=== PATIENT | male | born 1935 | race Caucasian/White ===

== ENCOUNTER 2017-08-19 09:01 | Inpatient (IN) ==
--- NOTE | 2017-08-19 09:37 | Emergency Department Note ---
Nausea/Vomiting/Diarrhea HPI - General Chief complaint: Nausea/Vomiting/Diarrhea Stated complaint: n/v x2 days, coffee ground emesis Source: EMS Mode of arrival: EMS Limitations: no limitations - History of Present Illness HPI Narrative: Patient is brought in by ambulance with a history of generalized weakness, vomiting coffee ground material off and on for the last 2 days ago. Last normal bowel movement was yesterday morning. He does have some issues with decubital ulcers. He denies chest pain, he said open-heart surgery in the past denies any shortness of breath at this time, does have some abdominal distention , vague and diffuse abdominal pain in all 4 quadrants associated with nausea. MD complaint: nausea, vomiting - Related Data Home Medications Medication Instructions Recorded Confirmed aspirin 81 mg chewable tablet 81 mg PO QDAY 09/19/15 08/19/17 blood sugar diagnostic strips See Dose Instructions .ROUTE 09/19/15 06/18/17 .MEDSUPPLY cyanocobalamin (vit B-12) 2,500 2,500 mcg SUBLINGUAL QDAY 09/19/15 08/19/17 mcg sublingual tablet glimepiride 4 mg tablet 4 mg PO HS 09/19/15 08/19/17 levothyroxine 50 mcg tablet 75 mcg PO QDAY 09/19/15 08/19/17 metformin ER 500 mg 500 mg PO QPM tab 09/19/15 08/19/17 tablet,extended release 24 hr metoprolol tartrate 50 mg tablet 50 mg PO HS 09/19/15 08/19/17 multivitamin tablet 1 tab PO QDAY 09/19/15 08/19/17 omega-3 fatty acids 1,000 mg 1,000 mg PO QDAY 09/19/15 08/19/17 capsule omeprazole 20 mg tablet,delayed 20 mg PO QDAY 09/19/15 08/19/17 release warfarin 5 mg tablet 5 mg PO QDAY 06/12/16 08/19/17 Cholecalciferol (Vitamin D3) 2,000 unit PO DAILY 08/19/17 08/19/17 [Vitamin D] Magnesium Oxide [Magnesium] 400 mg PO DAILY 08/19/17 08/19/17 Previous Rx's Medication Instructions Recorded imipramine 10 mg tablet 10 mg PO BID #60 tab 04/15/17 Allergies Allergy/AdvReac Type Severity Reaction Status Date / Time JEAN PIERRE Inhibitors Allergy Unknown Unknown Verified 06/18/17 13:58 [id number]-Nfa Reductase Allergy Unknown Unknown Verified 06/18/17 13:58 Inhibitor cephalexin AdvReac Unknown Nausea Verified 06/18/17 13:58 Review of Systems All systems ED: reviewed and negative except as stated. Constitutional: Denies: fever, chills ENT ED: Denies: ear pain, throat pain Cardiovascular: Reports: dyspnea on exertion. Denies: chest pain, palpitations Respiratory: Denies: cough Gastrointestinal: Reports: abdominal pain, nausea, vomiting, hematochezia Genitourinary: Reports: urgency, frequency Neurological: Reports: weakness. Denies: headache Endocrine: Reports: fatigue Hematological/Lymphatic: Reports: easy bleeding, easy bruising Past Medical History - Past Medical History Source: nursing notes reviewed Medical history: Reports: coronary artery disease, diabetes, other ( anticoagulation) Surgical history ED: Reports: coronary bypass (CABG), orthopedic, other Family history: Reports: non-contributory - Social History smoking status: Former smoker Alcohol use: Reports: None Physical Exam - General Limitations: no limitations General appearance: alert - Head Head exam: atraumatic, normocephalic, normal inspection - Eye Eye exam: Present: normal appearance, PERRL, EOMI. Absent: conjunctival injection - ENT ENT exam: normal exam, normal oropharynx, mucous membranes moist, normal external ear exam - Neck Neck exam: Present: normal inspection, other (decreased range of motion as expected for age and condition). Absent: tenderness, meningismus - Chest Chest inspection: Present: normal inspection, symmetric chest wall rise. Absent : tenderness - Respiratory Respiratory exam: Present: normal lung sounds bilaterally. Absent: respiratory distress, wheezes - Cardiovascular Cardiovascular exam: Present: regular rate, systolic murmur - Abdominal Exam Abdominal exam: Present: soft, distention, tenderness, hypoactive bowel sounds Abdominal tenderness: Present: diffuse, mild - Rectal Exam Rectal exam: Present: decreased rectal tone, heme (+) stool - exam: Present: normal inspection. Absent: testicular tenderness - Extremities Exam Extremities exam: Present: normal inspection, full ROM, other (Earlydecubital ulcer over his gluteus) - Back Exam Back exam: Present: normal inspection, muscle spasm. Absent: full ROM, tenderness, CVA tenderness (R), CVA tenderness (L) - Neurological Exam Neurological exam: Present: alert, oriented X3, motor sensory deficit, other ( weakness of the right leg which is ) - Psychiatric Psychiatric exam: Present: normal affect - Skin Skin exam: Present: dry, intact, cyanosis Course Vital Signs Temperature 97.7 F 08/19/17 09:04 Pulse Rate 78 08/19/17 09:04 Respiratory Rate 22 08/19/17 09:04 Blood Pressure 168/78 08/19/17 09:04 Pulse Oximetry (%) 95 08/19/17 09:04 Temperature 97.7 F 08/19/17 09:04 Pulse Rate 81 08/19/17 12:46 Respiratory Rate 15 08/19/17 12:46 Blood Pressure 158/81 08/19/17 12:46 Pulse Oximetry (%) 96 08/19/17 12:46 Nausea/Vomiting/Diarrhea - [facility] Narrative Medical decision making narrative: Initial x-rays the abdomen showing massive air-fluid levels. He underwent CT scan showing dilation of small bowel loops. Transition point. No obvious appendicitis or cholecystitis. Impression is small bowel obstruction. At this point and discussed this with Dr. Ying, he will be admitted to hospital for small bowel obstruction, undetermined etiology at this point. - Lab Data Result diagrams: 08/19/17 09:41 08/19/17 09:41 Lab Results 08/19/17 08/19/17 08/19/17 Range/Units 09:41 09:41 09:43 WBC 16.5 H (4.5-11.0) K/mcL RBC 5.39 (4.50-5.90) M/mcL Hgb 14.2 (13.5-16.5) g/dL Hct 43.3 (41.0-55.0) % MCV 80.3 (80.0-100.0) fL MCH 26.4 (26.0-34.0) pg MCHC 32.9 (31.0-36.0) g/dL RDW 15.6 H (11.5-14.5) % Plt Count 360 (140-440) K/mcL MPV 8.2 (7.4-10.4) fL Gran % 85.9 H (38.0-78.0) % Lymph % (Auto) 8.8 L (15.5-49.0) % [place] % (Auto) 5.0 (1.0-12.0) % Eos % (Auto) 0.1 (0.0-7.0) % Baso % (Auto) 0.2 (0.0-2.0) % Gran # 14.2 H (1.8-8.0) K/mcL Lymph # (Auto) 1.4 L (1.5-4.8) K/mcL [place] # (Auto) 0.8 (0.1-0.9) K/mcL Eos # (Auto) 0 (0.0-0.7) K/mcL Baso # (Auto) 0 (0.0-0.3) K/mcL PT 21.3 H (11.9-14.5) sec INR 1.8 H (0.9-1.1) Sodium 135 (133-145) mmol/L Potassium 4.8 (3.3-5.1) mmol/L Chloride 94 L (96-108) mmol/L Carbon Dioxide 23 (22-30) mmol/L Anion Gap 18.0 H (8-16) BUN 43 H (8-23) mg/dl Creatinine 1.4 H (0.7-1.2) mg/dl GFR Calculation 46 Glucose 284 H (70-105) mg/dL Calcium 9.9 (8.6-10.4) mg/dl Total Bilirubin 0.4 (0.0-1.0) mg/dL AST 15 (0-37) U/l ALT 12 (0-40) U/l Alkaline Phosphatase 106 (39-117) U/L C-Reactive Protein 4.8 H (0.0-0.8) mg/dl Total Protein 8.0 (5.9-8.4) gm/dL Albumin 3.8 (3.2-5.2) gm/dL Globulin 4.2 H (2.2-3.7) gm/dL Albumin/Globulin Ratio 0.9 L (1.0-2.3) Amylase 47 (28-100) U/L Lipase 14 (7-60) U/L Urine Color Urine Appearance Urine pH (5.0-9.0) Ur Specific [place] (1.000-1.035) Urine Protein (NEG) mg/dL Urine Glucose (UA) (NEG) mg/dL Urine Ketones (NEG) mg/dL Urine Occult Blood (<0.03) mg/dL Urine Nitrate (NEG) Urine Bilirubin (NEG) mg/dL Urine Urobilinogen (NEG) mg/dL Ur Leukocyte Esterase (NEG) /uL Urine RBC (0-1) /hpf Urine WBC (0-4) /hpf Ur Squamous Epith Cells (0-4) /hpf Urine Bacteria (0) /hpf Hyaline Casts (0-2) /lpf Urine Mucus (0) /hpf Ur Culture Indicated? 08/19/17 Range/Units 11:15 WBC (4.5-11.0) K/mcL RBC (4.50-5.90) M/mcL Hgb (13.5-16.5) g/dL Hct (41.0-55.0) % MCV (80.0-100.0) fL MCH (26.0-34.0) pg MCHC (31.0-36.0) g/dL RDW (11.5-14.5) % Plt Count (140-440) K/mcL MPV (7.4-10.4) fL Gran % (38.0-78.0) % Lymph % (Auto) (15.5-49.0) % [place] % (Auto) (1.0-12.0) % Eos % (Auto) (0.0-7.0) % Baso % (Auto) (0.0-2.0) % Gran # (1.8-8.0) K/mcL Lymph # (Auto) (1.5-4.8) K/mcL [place] # (Auto) (0.1-0.9) K/mcL Eos # (Auto) (0.0-0.7) K/mcL Baso # (Auto) (0.0-0.3) K/mcL PT (11.9-14.5) sec INR (0.9-1.1) Sodium (133-145) mmol/L Potassium (3.3-5.1) mmol/L Chloride (96-108) mmol/L Carbon Dioxide (22-30) mmol/L Anion Gap (8-16) BUN (8-23) mg/dl Creatinine (0.7-1.2) mg/dl GFR Calculation Glucose (70-105) mg/dL Calcium (8.6-10.4) mg/dl Total Bilirubin (0.0-1.0) mg/dL AST (0-37) U/l ALT (0-40) U/l Alkaline Phosphatase (39-117) U/L C-Reactive Protein (0.0-0.8) mg/dl Total Protein (5.9-8.4) gm/dL Albumin (3.2-5.2) gm/dL Globulin (2.2-3.7) gm/dL Albumin/Globulin Ratio (1.0-2.3) Amylase (28-100) U/L Lipase (7-60) U/L Urine Color Kateryna Urine Appearance Cloudy Urine pH 5.0 (5.0-9.0) Ur Specific [place] 1.027 (1.000-1.035) Urine Protein 100 A (NEG) mg/dL Urine Glucose (UA) 150 A (NEG) mg/dL Urine Ketones Neg (NEG) mg/dL Urine Occult Blood 0.03 A (<0.03) mg/dL Urine Nitrate Neg (NEG) Urine Bilirubin Neg (NEG) mg/dL Urine Urobilinogen Neg (NEG) mg/dL Ur Leukocyte Esterase Neg (NEG) /uL Urine RBC 3 H (0-1) /hpf Urine WBC 3 (0-4) /hpf Ur Squamous Epith Cells 2 (0-4) /hpf Urine Bacteria 0 (0) /hpf Hyaline Casts 4 H (0-2) /lpf Urine Mucus Mod (0) /hpf Ur Culture Indicated? No Disposition Pt seen by [employer]/PA only: No Clinical Impression: Prostate cancer, Bowel obstruction Disposition: Xfer Acute Care Hospital Condition: Fair Referrals: Curtis Ruiz MD [Primary Care Provider] -
[2017-08-19] MEDS ORDERED: ONDANSETRON 4 MG/2 ML VIAL IV ONE (09:41)
[2017-08-19] MEDS ORDERED: LACTATED RINGERS 1,000 ML IV ONE (09:41)
[2017-08-19 10:22] LABS: Basophils # (Auto) 0 K/mcL (0.0-0.3); Basophils % (Auto) 0.2 % (0.0-2.0); Eosinophils # (Auto) 0 K/mcL (0.0-0.7); Eosinophils % (Auto) 0.1 % (0.0-7.0); Granulocytes % (Auto) 85.9 % (38.0-78.0); Lymphocytes # (Auto) 1.4 K/mcL (1.5-4.8); Lymphocytes % (Auto) 8.8 % (15.5-49.0); Mean Cell Volume 80.3 fL (80.0-100.0); Mean Corpuscular HGB Conc 32.9 g/dL (31.0-36.0); Mean Corpuscular Hemoglobin 26.4 pg (26.0-34.0); Monocytes # (Auto) 0.8 K/mcL (0.1-0.9); Platelet Count 360 K/mcL (140-440); RBC 5.39 M/mcL (4.50-5.90); Red Cell Distribution Width 15.6 % (11.5-14.5)
[2017-08-19 10:35] LABS: ALT/SGPT 12 U/l (0-40); Albumin 3.8 gm/dL (3.2-5.2); Albumin/Globulin Ratio 0.9 (1.0-2.3); Alkaline Phosphatase 106 U/L (39-117); Amylase 47 U/L (28-100); Blood Urea Nitrogen 43 mg/dl (8-23); C-Reactive Protein 4.8 mg/dl (0.0-0.8); Lipase 14 U/L (7-60)
--- NOTE | 2017-08-19 10:59 | XRay Report ---
HISTORY: Reason for Exam:vomiting FINDINGS: There are several loops of moderately distended small intestine in the mid and upper abdomen. They measure up to 5.2 cm in width. Moderate amount gas is present in the stomach but the stomach is not abnormally distended. The colon is decompressed. A few air-fluid levels are present. There is no free intra-abdominal air.. Patient has an endograft in the aorta and iliac arteries. There is an IVC filter the right mid abdomen and a right hip prosthesis. Pulmonary fibrosis is noted in both lung bases. IMPRESSION: Small bowel obstruction Interpreted and Authenticated by: Quentin Nuñez 08/19/17
[2017-08-19 11:38] LABS: Appearance,Urine CLOUDY; Bacteria,Urine 0 /hpf (0); Bilirubin,Urine NEG (NEG); Color,Urine AMBER; Glucose,Urine (UA) 150 mg/dL (NEG); Leukocyte Esterase,Urine NEG /uL (NEG); Mucus,Urine MOD /hpf (0); Nitrate,Urine NEG (NEG); Protein,Urine 100 mg/dL (NEG); Specific Gravity,Urine 1.027 (1.000-1.035); Urine Blood 0.03 mg/dL (<0.03); Urine Hyaline Cast 4 /lpf (0-2); Urine RBC 3 /hpf (0-1); Urine Squamous Epithelial Cell 2 /hpf (0-4); Urine WBC 3 /hpf (0-4); Urobilinogen,Urine NEG (NEG)
[2017-08-19] MEDS ORDERED: PANTOPRAZOLE 40 MG VIAL IV ONE (11:38)
--- NOTE | 2017-08-19 12:40 | XRay Report ---
HISTORY: Reason for Exam:Bowel Obstruction FINDINGS: There is mild interstitial fibrosis adjacent to both diaphragms. This was seen on the prior chest CT done on 07/22/16. The mid and upper lung powell are clear. The heart size is normal. There has been a prior sternotomy performed. Nasogastric tube passes through the esophagus into the stomach. IMPRESSION: Mild bibasilar pulmonary fibrosis Interpreted and Authenticated by: Quentin Nuñez 08/19/17
--- NOTE | 2017-08-19 12:55 | Cat Scan Report ---
CLINICAL INFORMATION: Reason for Exam:pain rlq with small bowel obstruction COMPARISON: Abdominal x-ray on 08/19/17 TECHNIQUE: The abdomen was imaged without oral or IV contrast, scanning from the diaphragm to the symphysis pubis. Sagittal and coronal reformats were created. FINDINGS: Heart is borderline enlarged. There is been a prior sternotomy. Calcified plaques are present in the coronary arteries. Mild interstitial pulmonary fibrosis in both lung bases. The liver and spleen appear normal in size and homogeneous on this nonenhanced study. Gallbladder is contracted and contains a faintly calcified stone in the fundus. The bile ducts are nondilated. No abnormality seen within the pancreas. There are small nodules in both adrenal glands. These have not changed from prior CT done on 05/09/16 by [facility]. There are multiple cysts in both kidneys. There are also vascular calcifications in the interlobar arteries. A nonobstructing 3 mm calculus is present in the calyx anteriorly in the lower pole of left kidney. There is no hydronephrosis. There is nasogastric tube passing through the esophagus into the stomach. The stomach is mildly distended and contains a moderate amount of fluid. The duodenum and jejunum are abnormally distended and contain multiple air-fluid levels. There appears to be a transition point in the mid abdomen on axial image #97 and coronal image #58. No mass or inflammation are seen at this level. There is some stranding of the mesenteric fat in left mid abdomen between loops of dilated small intestine. The ileum is decompressed. The colon is also decompressed. No free intraperitoneal air is present. There is a trace amount of ascites in the right upper quadrant. No abdominal mass or abscess are present.. There is an endograft in the abdominal aorta extending into the common iliac arteries. There is no retroperitoneal hemorrhage. An IVC filter is seen in the midportion of the inferior vena cava. Prostate is small and there are numerous radiation implant seeds within it. Patient has a right hip prosthesis.. Bone windows show no lytic or blastic metastasis. IMPRESSION: Small bowel obstruction in the distal jejunum or proximal ileum. This is of undetermined etiology but could be due to an adhesion. Interpreted and Authenticated by: Quentin Nuñez 08/19/17
[2017-08-19] MEDS ORDERED: LACTATED RINGERS 1,000 ML IV SCH (13:00)
--- NOTE | 2017-08-19 15:17 | General Surg History&Physical ---
History of Present Illness Patient information: Note initiated : 08/19/17 at 3:12 pm Service Date, if different from initiated Date: [] Patient: Melvin Sousa a 81 y/o M admitted on 08/19/17 for N/V x 2 Days, Coffee Ground Emesis. Chief Complaint: [] HPI: Mr. Sousa is a 81 year old M who is admitted with probable small bowel obstruction. The patient had acute onset of abdominal pain followed by nausea and vomiting with later development of coffee-ground emesis. He has been symptomatic for 2 days. He has not had previous abdominal surgery that he can remember. Abdominal series shows multiple dilated loops of small bowel with decompressed colon. CT of the abdomen shows dilated stomach and duodenum jejunum with decompressed ileum and colon suggestive of small bowel obstruction. The patient states that he had a normal bowel movement yesterday. He has not had rectal bleeding or dark stools. Upon arrival in the [facility] the patient complained of chest pain and was noted to have tachycardia with a variable rate. Exam revealed an irregularly irregular rhythm. This is confirmed by EKG. Cardiac enzymes have been ordered and I will ask Dr. Wright to evaluate the patient. He is presently anticoagulated but in preparation for the possibility of exploratory laparotomy his Coumadin is going to have to be corrected. I will wait until his cardiac enzymes are reviewed and if they are normal we will proceed with correction of his ProTime. Hopefully his heart rate will convert to normal with medical therapy. Review of Systems - Constitutional fatigue, malaise, weakness - EENT Nose, mouth and throat: abnormal hearing, dizziness - Cardiovascular chest pain, dyspnea on exertion, irregular heart rhythm, palpatations, rapid heart rate - Respiratory dyspnea on exertion - Gastrointestinal abdominal pain, cramping, hematemesis, nausea, vomiting - Genitourinary urinary frequency, urinary incontinence, urinary urgency - Musculoskeletal arthralgias - Integumentary no bleeding lesions, no new lesions, no pruritus, no rash - Neurological abnormal hearing, confusion, no frequent falls, no memory loss, no sensory deficit - Psychiatric no anxiety, no depression - Endocrine fatigue, palpitations - Hematologic/Lymphatic easy bleeding, easy bruising, no lymphadenopathy - Allergic/Immunologic no tongue swelling, no throat swelling, no uticaria, no wheezing, no lip swelling Past History Past medical history: Carcinoma of the prostate Coronary artery disease status post three-vessel CABG History of DVT History of pulmonary embolus with IVC filter Diabetes mellitus type 2 Cervical spinal stenosis History of supraventricular tachycardia Peripheral neuropathy Long-term warfarin use Gastroesophageal reflux disease with Huizar's esophagus Past surgical history: TURP Laser vaporization of prostate Right total hip arthroplasty Laminectomy Coronary artery bypass graft Endovascular aortoiliac graft Past family history: Carcinoma of lung in 2 family members Past social history: Occasional alcohol use Former smoker Medications and Allergies Home Medications Medication Instructions Recorded Confirmed Type aspirin 81 mg chewable tablet 81 mg PO QDAY 09/19/15 08/19/17 History blood sugar diagnostic strips See Dose Instructions .ROUTE 09/19/15 06/18/17 History .MEDSUPPLY cyanocobalamin (vit B-12) 2,500 2,500 mcg SUBLINGUAL QDAY 09/19/15 08/19/17 History mcg sublingual tablet glimepiride 4 mg tablet 4 mg PO HS 09/19/15 08/19/17 History levothyroxine 50 mcg tablet 75 mcg PO QDAY 09/19/15 08/19/17 History metformin ER 500 mg 500 mg PO QPM tab 09/19/15 08/19/17 History tablet,extended release 24 hr metoprolol tartrate 50 mg tablet 50 mg PO HS 09/19/15 08/19/17 History multivitamin tablet 1 tab PO QDAY 09/19/15 08/19/17 History omega-3 fatty acids 1,000 mg 1,000 mg PO QDAY 09/19/15 08/19/17 History capsule omeprazole 20 mg tablet,delayed 20 mg PO QDAY 09/19/15 08/19/17 History release warfarin 5 mg tablet 5 mg PO QDAY 06/12/16 08/19/17 History imipramine 10 mg tablet 10 mg PO BID #60 tab 04/15/17 08/19/17 Rx Cholecalciferol (Vitamin D3) 2,000 unit PO DAILY 08/19/17 08/19/17 History [Vitamin D] Magnesium Oxide [Magnesium] 400 mg PO DAILY 08/19/17 08/19/17 History Allergies Allergy/AdvReac Type Severity Reaction Status Date / Time Atxeuwq-Kar-Dia Reductase Allergy Unknown Unknown Verified 06/18/17 13:58 Inhibitor cephalexin AdvReac Unknown Nausea Verified 06/18/17 13:58 Exam Temp Pulse Resp BP Pulse Ox 98.4 F 121 H 20 159/87 92 08/19/17 14:49 08/19/17 14:49 08/19/17 14:49 08/19/17 14:49 08/19/17 14:49 - General physical appearance well developed, well nourished, no distress, other (Complains of chest pain but in no acute distress) - Eyes PERRL, normal ocular movement - ENT normal pinna, normal nares, normal mucosa, no hearing loss, no congestion - Head Head exam IM: Present: atraumatic, normal inspection, normocephalic - Neck no masses, no bruits, trachea midline, no lymphadectomy, no venous distension - Cardiovascular Cardiovascular exam IM: Present: irregular rhythm, tachycardia (Irregular irregular rhythm with rate between 120 and 140) - Respiratory normal expansion, normal respiratory effort, clear to percussion, clear to auscultation - Abdomen Abdomen: Present: soft, non tender, bowel sounds (Mildly hyperactive bowel sounds no major tenderness or guarding), distended Hernia: Present: none - Genitourinary Present: normal penis with no external lesions - Integumentary Present: no rash, no growths, no abnormal pigmentation - Neurologic Present: normal coordination, normal sensation - Musculoskeletal Present: normal gait, normal posture - Psychiatric Present: oriented to time, oriented to person, oriented to place, speech is normal, memory intact Assessment and Plan (1) Small bowel obstruction Status: Acute (2) Atrial fibrillation with rapid ventricular response Stat troponin and CPK Stat EKG We will allow hospitalist to control rate before reversing the anticoagulation Status: Acute (3) Spinal stenosis, cervical region Status: Chronic (4) DM type 2 (diabetes mellitus, type 2) Status: Chronic Qualifiers: Diabetes mellitus complication status: without complication Diabetes mellitus snf insulin use: without intermission coordinator use Qualified Code(s): E11.9 - Type 2 diabetes mellitus without complications (5) Anticoagulant long-term use Status: Chronic (6) CAD (coronary artery disease) Status: Chronic
[2017-08-19] MEDS: METOPROLOL TARTRATE 5 MG/5 ML VIAL IV SCH ×3 (15:19→15:46)
[2017-08-19] MEDS ORDERED: PROMETHAZINE 25 MG/ML VIAL IV PRN (15:37)
[2017-08-19] MEDS ORDERED: HYDROmorphone 2 MG/ML SYRINGE IV PRN (15:37)
[2017-08-19] MEDS ORDERED: 0.9 % SODIUM CHLORIDE 250 ML IV SCH (15:45)
[2017-08-19] MEDS: 0.9 % SODIUM CHLORIDE 1,000 ML IV SCH (15:48)
[2017-08-19] MEDS: PHYTONADIONE 10 MG in 0.9 % SODIUM CHLORIDE 50 ML IV SCH (16:17)
[2017-08-19] MEDS: PANTOPRAZOLE 40 MG VIAL IV SCH (16:49)
[2017-08-19] MEDS ORDERED: DILTIAZEM 25 MG/5 ML VIAL IV ONE (16:57)
[2017-08-19] MEDS ORDERED: NITROGLYCERIN 0.4 MG TAB.SUBL SL PRN (16:59)
[2017-08-19] MEDS ORDERED: ASPIRIN 325 MG ENTERIC COATED TABLET PO ONE (17:30)
[2017-08-19] MEDS ORDERED: ASPIRIN 81 MG TAB.CHEW CHEWED ONE (17:50)
[2017-08-19] MEDS ORDERED: AMIODARONE 150 MG in DEXTROSE 5% IN WATER 50 ML IV ONE (17:53)
--- NOTE | 2017-08-19 18:28 | Internal Medicine Consult Note ---
Medical - CN: HPI - Data of Consult Patient: new to practice Consult date: 08/19/17 Requesting Physician: Ronan Ying MD Primary Care Provider: Curtis Ruiz - Consult Narrative Reason for consult: chest pain and atrial fibrillation. History of present illness: Mr. Sousa is a 81 year old Male with multiple medical issues and a significant cardiac history presented to the ER today with abdominal pain x 2 days started as cramps in the abdomen, mid upper abdomen, non radiating. Thought he had constipation, and therefore took stool softners, this did nto help and his pain worsened the next day, he did pass some stools, but also had nausea and vomiting x 5 This AM his pain progresssed and he was not feeling well, nausea and vomiting x 1, The patient therfore presented to the er In the ER his las showed leucocytosis wbc 16.5, na 135, creat 1.4 CT showed small bowel obstruction. Patient was admitted to the surgery service for further management ON arriving on the floor the patient during evaluation by the surgeon noted that he was having chest pain and paliptations. CHest pain was retrosternal, dull, radiating down the right arm, lasted for 30 mins, associated with palpitations, no sob, dizziness, sweating of blurring of vision. THe patient had irregualr hr and elevated hr, EKG showed new onset ATrial flutter/ fibrillation. Trop done showed trop of 0.04, CK 6, Medicine was consulted for management of these issues Patient is on oxygen, on home asa 81, does not take statin, and declined statin after being expalained the risk of not taking statin. patient on my eval was chest pain free, but still in afib/ flutter with rvr hr around 125, metoprolol x 3 failed. cardizem 20mg iv did not help much I called hte patients primary funds development director Dr Prince and explained the situation , he advised amiodarone. LIkely that troponin of 0.04 is leak secondary to afib and rvr, but to trend trop CC: MD nathalie Ortiz All systems: reviewed and no additional remarkable complaints except as stated ( as per HPI) Medical - CN: PMH Medical history: Medical History (Last Reviewed 06/18/17 @ 13:59 by Dorothy Garcia [facility]) Contusion of right chest wall (Acute) Bowel obstruction (Acute) Small bowel obstruction (Acute) Atrial fibrillation with rapid ventricular response (Acute) Urinary incontinence with continuous leakage (Acute) Supraventricular tachycardia (Chronic) Spinal stenosis, cervical region (Chronic) Pulmonary embolism (Chronic) Prostate cancer (Chronic 12/06/13) Peripheral neuropathy (Chronic) Incomplete bladder emptying (Chronic 12/06/13) Hyperthyroidism (Chronic) Hyperlipemia (Chronic) Hip pain (Chronic) Closed hip fracture (Chronic) Groin pain (Chronic) DM type 2 (diabetes mellitus, type 2) (Chronic) Deep vein thrombosis (Chronic) Anticoagulant long-term use (Chronic) Cough (Chronic) CAD (coronary artery disease) (Chronic) Barretts esophagus (Chronic) Arrhythmia (Chronic) 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) Surgical history: Past Surgical History (Last Reviewed 06/18/17 @ 13:59 by Dorothy Garcia CMA) Hx of laminectomy (Acute) History of right hip replacement (Acute) History of prostate surgery (Acute 01/03/15) Hx of CABG (Acute) Hx of biopsy (Acute) S/P TURP (Chronic 12/21/15) Family history: reviewed and not pertinent Pertinent family history: Family History (Last Reviewed 06/18/17 @ 13:59 by Dorothy Garcia CMA) brother Malignant neoplasm of lung father Malignant neoplasm of lung Medical - CN: Meds Home Medications Medication Instructions Recorded Confirmed Type aspirin 81 mg chewable tablet 81 mg PO QDAY 09/19/15 08/19/17 History blood sugar diagnostic strips See Dose Instructions .ROUTE 09/19/15 06/18/17 History .MEDSUPPLY cyanocobalamin (vit B-12) 2,500 2,500 mcg SUBLINGUAL QDAY 09/19/15 08/19/17 History mcg sublingual tablet glimepiride 4 mg tablet 4 mg PO HS 09/19/15 08/19/17 History levothyroxine 50 mcg tablet 75 mcg PO QDAY 09/19/15 08/19/17 History metformin ER 500 mg 500 mg PO QPM tab 09/19/15 08/19/17 History tablet,extended release 24 hr metoprolol tartrate 50 mg tablet 50 mg PO HS 09/19/15 08/19/17 History multivitamin tablet 1 tab PO QDAY 09/19/15 08/19/17 History omega-3 fatty acids 1,000 mg 1,000 mg PO QDAY 09/19/15 08/19/17 History capsule omeprazole 20 mg tablet,delayed 20 mg PO QDAY 09/19/15 08/19/17 History release warfarin 5 mg tablet 5 mg PO QDAY 06/12/16 08/19/17 History imipramine 10 mg tablet 10 mg PO BID #60 tab 04/15/17 08/19/17 Rx Cholecalciferol (Vitamin D3) 2,000 unit PO DAILY 08/19/17 08/19/17 History [Vitamin D] Magnesium Oxide [Magnesium] 400 mg PO DAILY 08/19/17 08/19/17 History Allergies Allergy/AdvReac Type Severity Reaction Status Date / Time [id number] Reductase Allergy Unknown Unknown Verified 06/18/17 13:58 Inhibitor cephalexin AdvReac Unknown Nausea Verified 06/18/17 13:58 Medical - CN: Exam - Constitutional Vitals: Temp Pulse Resp BP Pulse Ox 98.0 F 121 H 16 128/83 95 08/19/17 17:00 08/19/17 15:55 08/19/17 17:00 08/19/17 15:55 08/19/17 15:55 Exam: GENERAL: The patient is a well-developed, well-nourished in no apparent distress. Is alert and oriented x3. VITAL SIGNS: Reviewed and as noted elsewhere. HEENT: Head is normocephalic and atraumatic. Extraocular muscles are intact. Pupils are equal, round, and reactive to light. Nares appeared normal. Mouth appears any without lesions. Mucous membranes are dry, NT gube in place to wall suctin, brownish liquid NECK: Normal to inspection, Supple, No lymphadenopathy or thyromegaly. LUNGS: Air entry equal on both sides, no wheezing, crackles or rhonchi noted. No accessory muscles of respiration HEART: Regular tachycardic rate and rhythm normal, S1 and S2 heard, no Gallop, S3 or Rub Noted, No Gross murmur heard. ABDOMEN: Soft, nontender, but distended. hypoactive but Positive bowel sounds. No hepatosplenomegaly was noted. EXTREMITIES: No cyanosis, clubbing, rash, lesions. edema + NEUROLOGIC: Cranial nerves II through XII are grossly intact. Motor and Sensory System Grossly Intact PSYCHIATRIC: Normal affect, Normal Mood. Appropriate Behavior. SKIN: No ulceration or wounds noted, No jaundice, No rash noted. Medical - CN: Result - Labs CBC & Chem 7: 08/19/17 09:41 08/19/17 09:41 Labs: Short CBC 08/19/17 Range/Units 09:41 WBC 16.5 H (4.5-11.0) K/mcL Hgb 14.2 (13.5-16.5) g/dL Hct 43.3 (41.0-55.0) % Plt Count 360 (140-440) K/mcL BMP 08/19/17 09:41 Sodium 135 Potassium 4.8 Chloride 94 L Carbon Dioxide 23 BUN 43 H Creatinine 1.4 H Glucose 284 H Calcium 9.9 Cardiac Enzymes 08/19/17 08/19/17 Range/Units 15:00 15:00 CK-MB (CK-2) 6.0 H (0-4.9) ng/ml Troponin T 0.04 H* (0-0.03) ng/ml Liver Function 08/19/17 Range/Units 09:41 Total Bilirubin 0.4 (0.0-1.0) mg/dL AST 15 (0-37) U/l ALT 12 (0-40) U/l Alkaline Phosphatase 106 (39-117) U/L Albumin 3.8 (3.2-5.2) gm/dL Urine 08/19/17 Range/Units 11:15 Urine Color Kateryna Urine Appearance Cloudy Urine pH 5.0 (5.0-9.0) Ur Specific [place] 1.027 (1.000-1.035) Urine Protein 100 A (NEG) mg/dL Urine Glucose (UA) 150 A (NEG) mg/dL Medical - CN: A/P - Narrative A/P Narrative: A/P Acute small bowel obstruction new onset afib Chest pain type 2 TX CAD, h/o pvd, AAA s/p repair HTN DM Leucocytosis h/o dvt and pe on coumadin Plan ADmit to tele for now Trend troponin ASA 325 given, prn ntg if needed IV amiodarone for rate control IF troponin trends up signficantly then will have to xfer to higher center for further management Patients INR on presentation was 1.8, he is on coumadin, he did get Vit K in light of need for surgery will start hep ggt vs lovenox IV fluids resume asas, pt declined statin, resume home meds as appropriate. sliding scale isulin monitor closely Full code npo status. Social History - Tobacco smoking status: Former smoker - Alcohol alcohol intake frequency: holiday/special occasion only - Substance use substance use type: does not use
[2017-08-19] MEDS ORDERED: DEXTROSE 50% 50 ML VIAL IV PRN (18:33)
[2017-08-19] MEDS: AMIODARONE 360 MG in PREMIX 1 BAG IV SCH (19:04)
[2017-08-20] MEDS ORDERED: AMIODARONE 360 MG in PREMIX 1 BAG IV SCH ×2 (00:15→11:11)
[2017-08-20] MEDS ORDERED: PHYTONADIONE 10 MG/ML AMPUL ONE (00:25)
[2017-08-20] MEDS: INSULIN LISPRO 1 UNIT/0.01 ML UNIT SQ SCH ×4 (01:06→18:01)
[2017-08-20] MEDS: AMIODARONE 360 MG in PREMIX 1 BAG IV SCH ×2 (01:08→08:19)
[2017-08-20] MEDS: PHYTONADIONE 10 MG in 0.9 % SODIUM CHLORIDE 50 ML IV SCH (01:10)
[2017-08-20] MEDS: 0.9 % SODIUM CHLORIDE 1,000 ML IV SCH ×4 (02:25→18:45)
[2017-08-20 05:15] LABS: Basophils # (Auto) 0 K/mcL (0.0-0.3); Basophils % (Auto) 0.3 % (0.0-2.0); Eosinophils # (Auto) 0.2 K/mcL (0.0-0.7); Eosinophils % (Auto) 1.8 % (0.0-7.0); Granulocytes % (Auto) 73.3 % (38.0-78.0); Lymphocytes # (Auto) 1.4 K/mcL (1.5-4.8); Mean Cell Volume 80.6 fL (80.0-100.0); Mean Corpuscular HGB Conc 32.8 g/dL (31.0-36.0); Mean Corpuscular Hemoglobin 26.4 pg (26.0-34.0); Monocytes # (Auto) 0.9 K/mcL (0.1-0.9); Monocytes % (Auto) 9.6 % (1.0-12.0); Platelet Count 253 K/mcL (140-440); RBC 4.34 M/mcL (4.50-5.90); Red Cell Distribution Width 15.7 % (11.5-14.5)
[2017-08-20 05:56] LABS: ALT/SGPT 9 U/l (0-40); Albumin 3.4 gm/dL (3.2-5.2); Alkaline Phosphatase 78 U/L (39-117); Bilirubin,Direct < 0.2 mg/dL (0.0-0.3); Blood Urea Nitrogen 42 mg/dl (8-23); Gamma Glutamyl Transpeptidase 15 U/L (8-61); Uric Acid 7.6 mg/dL (2.5-8.0)
[2017-08-20] MEDS ORDERED: LEVOFLOXACIN 750 MG/150 ML BAG IV ONE (07:41)
[2017-08-20] MEDS ORDERED: 0.9 % SODIUM CHLORIDE 250 ML IV SCH ×2 (07:45→11:11)
[2017-08-20] MEDS: PANTOPRAZOLE 40 MG VIAL IV SCH ×2 (08:32→17:49)
--- NOTE | 2017-08-20 08:36 | XRay Report ---
HISTORY: Reason for Exam:FOR F/U OF ILEUS FINDINGS: There are several very dilated loops of small bowel in the mid and upper abdomen. The measure up to 6 cm in diameter. Stomach is decompressed by a nasogastric tube. There is very little air and stool within the colon. Small bowel measured 5.2 cm in greatest diameter on yesterday's exam. No free intra-abdominal air is present. The upright view is limited since it was acquired portably and most of the abdomen was not visualized. IMPRESSION: Worsening small bowel obstruction Interpreted and Authenticated by: Quentin Nuñez 08/20/17
[2017-08-20] MEDS ORDERED: SUCCINYLCHOLINE 20 MG/ML ML IV ONE (09:30)
[2017-08-20] MEDS ORDERED: ePHEDrine 50 MG/ML AMPUL IV ONE (09:30)
[2017-08-20] MEDS ORDERED: DEXAMETHASONE 10 MG/ML VIAL IV ONE (09:30)
[2017-08-20] MEDS ORDERED: HYDROmorphone 2 MG/ML SYRINGE IV ONE (09:30)
[2017-08-20] MEDS ORDERED: ROCURONIUM 10 MG/ML ML IV ONE (09:30)
[2017-08-20] MEDS ORDERED: ONDANSETRON 4 MG/2 ML VIAL IV ONE (09:30)
[2017-08-20] MEDS ORDERED: GLYCOPYRROLATE 0.2 MG/ML VIAL IV ONE (09:30)
[2017-08-20] MEDS ORDERED: LIDOCAINE HCL/PF 100 MG/5 ML SYRINGE IV ONE (09:30)
[2017-08-20] MEDS ORDERED: KETAMINE 100 MG/ML ML IV ONE (09:30)
[2017-08-20] MEDS ORDERED: NEOSTIGMINE 1 MG/ML VIAL IV ONE (09:30)
[2017-08-20] MEDS ORDERED: MIDAZOLAM 2 MG/2 ML VIAL IV ONE (09:30)
[2017-08-20] MEDS ORDERED: PROPOFOL 200 MG/20 ML VIAL IV ONE (09:30)
[2017-08-20] MEDS ORDERED: fentaNYL 250 MCG/5 ML VIAL IV ONE (09:30)
[2017-08-20] MEDS ORDERED: MEPERIDINE 25 MG/ML SYRINGE IV PRN (10:24)
[2017-08-20] MEDS ORDERED: LACTATED RINGERS 250 ML IV PRN ×2 (10:24→11:11)
[2017-08-20] MEDS ORDERED: MEPERIDINE 50 MG/ML SYRINGE IM PRN ×2 (10:24→11:11)
[2017-08-20] MEDS ORDERED: BENZOCAINE/MENTHOL 1 LOZENGE PO PRN ×2 (10:24→11:11)
[2017-08-20] MEDS ORDERED: PROMETHAZINE 25 MG/ML VIAL IV PRN ×2 (10:24→11:11)
[2017-08-20] MEDS ORDERED: PROMETHAZINE 25 MG/ML VIAL IM PRN (10:24)
[2017-08-20] MEDS ORDERED: FLUMAZENIL 0.1 MG/ML ML IV PRN (10:24)
[2017-08-20] MEDS ORDERED: fentaNYL 100 MCG/2 ML VIAL IV PRN (10:24)
[2017-08-20] MEDS ORDERED: IPRATROPIUM/ALBUTEROL 3 ML AMPUL.NEB NEB PRN (10:24)
[2017-08-20] MEDS ORDERED: NALOXONE HCL 0.4 MG/ML VIAL IV PRN ×2 (10:24→11:11)
[2017-08-20] MEDS ORDERED: METHOCARBAMOL 1,000 MG/10 ML VIAL IV PRN (10:24)
[2017-08-20] MEDS ORDERED: ePHEDrine 50 MG/ML AMPUL IV PRN (10:24)
[2017-08-20] MEDS ORDERED: HYDROmorphone 2 MG/ML SYRINGE IV PRN (10:24)
[2017-08-20] MEDS ORDERED: ONDANSETRON 4 MG/2 ML VIAL IV PRN (10:24)
[2017-08-20] MEDS ORDERED: diphenhydrAMINE 50 MG/ML VIAL IV PRN (10:24)
[2017-08-20] MEDS ORDERED: LACTATED RINGERS 1,000 ML IV SCH ×2 (10:30→11:11)
--- NOTE | 2017-08-20 10:33 | Brief Operative Note ---
Date of procedure: 08/20/17 Pre-op diagnosis: small bowel obstruction Post-op diagnosis: other (adhesions with small bowel obstruction) Procedure: EXPLORATORY LAPAROTOMY WITH ADHESIOLYSIS Grafts/Implants: No Anesthesia: GETA Findings: ADHESIVE BANDS ACROSS BASE OF SMALL BOWEL MESENTERY WITH COMPLETE OBSTRUCTION Complications: none Surgeon: Ronan Ying Estimated blood loss (cc): 10 Specimens Removed/Pathology: none sent Condition: stable Disposition: other (TELEMETRY)
[2017-08-20] MEDS ORDERED: NITROGLYCERIN 0.4 MG TAB.SUBL SL PRN (11:11)
[2017-08-20] MEDS ORDERED: ACETAMINOPHEN 1,000 MG/100 ML BOTTLE IV PRN ×2 (11:11→11:30)
[2017-08-20] MEDS ORDERED: DEXTROSE 50% 50 ML VIAL IV PRN (11:11)
[2017-08-20] MEDS: METOCLOPRAMIDE 10 MG/2 ML VIAL IV SCH ×2 (12:44→18:02)
--- NOTE | 2017-08-20 15:08 | Internal Med Progress Note ---
Medical - PN: Subj Patient information: Note initiated : 08/20/17 at 3:01 pm Service Date, if different from initiated Date: [] Patient: Melvin Sousa a 81 y/o M admitted on 08/19/17 for N/V x 2 Days, Coffee Ground Emesis/Small Bowel Obs. Chief Complaint: [] Interval history: Mr. Sousa is a 81 year old Male with multiple medical issues and a significant cardiac history presented to the ER today with abdominal pain x 2 days started as cramps in the abdomen, mid upper abdomen, non radiating. Thought he had constipation, and therefore took stool softners, this did nto help and his pain worsened the next day, he did pass some stools, but also had nausea and vomiting x 5 This AM his pain progresssed and he was not feeling well, nausea and vomiting x 1, The patient therfore presented to the er In the ER his las showed leucocytosis wbc 16.5, na 135, creat 1.4 CT showed small bowel obstruction. Patient was admitted to the surgery service for further management ON arriving on the floor the patient during evaluation by the surgeon noted that he was having chest pain and paliptations. CHest pain was retrosternal, dull, radiating down the right arm, lasted for 30 mins, associated with palpitations, no sob, dizziness, sweating of blurring of vision. THe patient had irregualr hr and elevated hr, EKG showed new onset ATrial flutter/ fibrillation. Trop done showed trop of 0.04, CK 6, Medicine was consulted for management of these issues Patient is on oxygen, on home asa 81, does not take statin, and declined statin after being expalained the risk of not taking statin. patient on my eval was chest pain free, but still in afib/ flutter with rvr hr around 125, metoprolol x 3 failed. cardizem 20mg iv did not help much I called hte patients primary animal laboratory technician Dr Prince and explained the situation , he advised amiodarone. LIkely that troponin of 0.04 is leak secondary to afib and rvr, but to trend trop August 20 Patient seen examiend aware high risk surgery due to cardiac issues pt went for SX this AM, and came back now in unit for monitoring continue amiodarone drip for now monitor on tele, no e/o recurrence of afib Pertinent ROS: Denies headache, dizziness Denies chest pain, palpitations Denies cough or shortness of breath Denies abdominal pain, nausea or vomiting. - Constitutional Vitals: Vital Signs Temp Pulse Resp BP Pulse Ox 98.5 F 65 16 134/83 94 08/20/17 11:23 08/20/17 11:23 08/20/17 11:23 08/20/17 11:23 08/20/17 11:23 Period Temp Pulse Resp BP Sys/Viveros Pulse Ox Last 24 Hr 98.0 F-99.5 F 56-125 11-21 107-170/52-100 90-99 Intake and Output 08/20/17 08/20/17 08/20/17 05:59 13:59 21:59 Intake Total 1538 / 1538 2175 / 2175 Output Total 292 / 292 85 / 85 Balance 1246 / 1246 2089 Intake & Output: Intake & Output 08/20/17 08/20/17 08/20/17 05:59 13:59 21:59 Intake Total 1538 / 1538 2175 / 2175 Output Total 292 / 292 85 / 85 Balance 1246 / 1246 2089 / 2089 Intake: IV 1188 / 1188 1200 / 1200 Sodium Chloride 0.9% 1,000 ml @ 1000 / 1000 150 mls/hr IV .Q6H40M [facility] Rx#: [id number] Nexterone 360 mg In Premix 1 188 / 188 Bag @ 1 MG/MIN 33.33 mls/hr IV .Q6H1M [facility] Rx#:[id number] Oral 0 / 0 Blood Product 350 / 350 325 / 325 Fresh Frozen Plasma 650 / 650 Output: Gastric Drainage 140 / 140 35 / 35 Left Nare 140 / 140 35 / 35 Void Amount 150 / 150 # of times incontinent of urine 2 / 2 Estimated Blood Loss 50 / 50 Other: # Voids 2 # Bowel Movements 0 Exam: Constitutional; Afebrile, cooperative, alert, not in distress. Eyes- No icterus, , No periorbital swelling Ears- Ext ear normal, hearing normal to conversation. Neck- Midline trachea, supple Respiratory system: Air Entry equal on both sides, No crackles or wheezing, no rhonchi. CVS- Rate rhythm regular, S1,S2 heard, no gallop, no rub. Abdomen- Soft nontender abdomen distended abdomen, no organomegaly, no tenderness, no guarding or rigidity, GRAIN MERCHANDISER- AOOx3, moving all extremities, no gross focal deficit noted. Medical - PN: Obj Da - Labs CBC & Chem 7: 08/20/17 03:52 08/20/17 03:52 Labs: Abnormal Lab Results 08/20/17 08/20/17 08/20/17 03:52 03:52 03:52 WBC RBC 4.34 L Hgb 11.5 L Hct 35.0 L RDW 15.7 H Gran % Lymph % (Auto) 15.0 L Gran # Lymph # (Auto) 1.4 L PT 15.9 H INR 1.2 H Chloride Anion Gap BUN 42 H Creatinine Glucose 198 H CK-MB (CK-2) Troponin T C-Reactive Protein Globulin Albumin/Globulin Ratio Urine Protein Urine Glucose (UA) Urine Occult Blood Urine RBC Hyaline Casts 08/19/17 08/19/17 08/19/17 21:06 15:00 15:00 WBC RBC Hgb Hct RDW Gran % Lymph % (Auto) Gran # Lymph # (Auto) PT INR Chloride Anion Gap BUN Creatinine Glucose CK-MB (CK-2) 6.0 H Troponin T 0.05 H* 0.04 H* C-Reactive Protein Globulin Albumin/Globulin Ratio Urine Protein Urine Glucose (UA) Urine Occult Blood Urine RBC Hyaline Casts 08/19/17 08/19/17 08/19/17 11:15 09:43 09:41 WBC RBC Hgb Hct RDW Gran % Lymph % (Auto) Gran # Lymph # (Auto) PT 21.3 H INR 1.8 H Chloride 94 L Anion Gap 18.0 H BUN 43 H Creatinine 1.4 H Glucose 284 H CK-MB (CK-2) Troponin T C-Reactive Protein 4.8 H Globulin 4.2 H Albumin/Globulin Ratio 0.9 L Urine Protein 100 A Urine Glucose (UA) 150 A Urine Occult Blood 0.03 A Urine RBC 3 H Hyaline Casts 4 H 08/19/17 09:41 WBC 16.5 H RBC Hgb Hct RDW 15.6 H Gran % 85.9 H Lymph % (Auto) 8.8 L Gran # 14.2 H Lymph # (Auto) 1.4 L PT INR Chloride Anion Gap BUN Creatinine Glucose CK-MB (CK-2) Troponin T C-Reactive Protein Globulin Albumin/Globulin Ratio Urine Protein Urine Glucose (UA) Urine Occult Blood Urine RBC Hyaline Casts Meds: Medications Dextrose (Dextrose 50%) 0 ml IV UD PRN PRN Reason: Hypoglycemia Diagnostic Test (Pha) (Accu-Chek) 1 each FS Q6 [facility] Last Admin: 08/20/17 12:53 Dose: 1 each Hydromorphone HCl (Dilaudid) 1 mg IV Q4HP PRN PRN Reason: Pain AMIODARONE 360 mg/ Premix 200 mls @ 16.66 mls/hr IV .Q12H1M [facility]; 0.5 MG/MIN PRN Reason: Protocol Stop: 08/20/17 18:00 Last Admin: 08/20/17 12:43 Dose: 0.5 mg/min, 16.66 mls/hr Sodium Chloride (Sodium Chloride 0.9%) 1,000 mls @ 150 mls/hr IV .Q6H40M [facility] Last Admin: 08/20/17 12:43 Dose: 150 mls/hr Sodium Chloride (Sodium Chloride 0.9%) 250 mls @ 20 mls/hr IV .[id number] [facility] Stop: 08/20/17 20:14 Last Admin: 08/20/17 12:44 Dose: 20 mls/hr Acetaminophen (Ofirmev) 1,000 mg in 100 mls @ 200 mls/hr IV Q6HP PRN PRN Reason: Pain Insulin Human Lispro (Humalog) 0 unit SQ Q6 [facility] PRN Reason: Protocol Last Admin: 08/20/17 13:00 Dose: 3 unit Metoclopramide HCl (Reglan) 10 mg IV Q6 [facility] Last Admin: 08/20/17 12:44 Dose: 10 mg Nitroglycerin (Nitrostat) 0.4 mg SL Q5M PRN PRN Reason: Chest Pain Pantoprazole Sodium (Protonix) 40 mg IV BIDAC [facility] Promethazine HCl (Phenergan) 12.5 mg IV Q4HP PRN PRN Reason: Nausea And Vomiting Medical - PN: A/P - Time Spent With Patient Total time spent is greater than 50% in coordination of care (as documented) at patient's floor/unit and/or counseling patient: - Narrative A/P Narrative: A/P Acute small bowel obstruction new onset afib Chest pain type 2 DC CAD, h/o pvd, AAA s/p repair HTN DM Leucocytosis h/o dvt and pe on coumadin Plan post op day 0 today monitor on tele for now Troponin max was 0.05 which is likely related to tachycadia on amiodarone for rate control, will d/c after 24 hrs already on beta blcokers at home for CAD, will adjust dose at d ischarge, already on coumadin for dvt. pe, resume warfarin once surgically cleared. IV fluids resume asas, pt declined statin, resume home meds as appropriate. sliding scale isulin for now Full code npo status. Medical - PN: Qual - VTE Deep Vein Thrombosis/Pulmonary Embolism Present on Admission: No
[2017-08-20] MEDS: HYDROmorphone 2 MG/ML SYRINGE IV PRN (17:48)
[2017-08-21] MEDS: INSULIN LISPRO 1 UNIT/0.01 ML UNIT SQ SCH ×4 (00:04→18:01)
[2017-08-21] MEDS: METOCLOPRAMIDE 10 MG/2 ML VIAL IV SCH ×4 (00:05→17:57)
[2017-08-21] MEDS: HYDROmorphone 2 MG/ML SYRINGE IV PRN ×3 (00:05→21:46)
[2017-08-21] MEDS: 0.9 % SODIUM CHLORIDE 1,000 ML IV SCH ×4 (02:20→22:00)
[2017-08-21 06:09] LABS: Basophils # (Auto) 0 K/mcL (0.0-0.3); Basophils % (Auto) 0 % (0.0-2.0); Eosinophils # (Auto) 0 K/mcL (0.0-0.7); Eosinophils % (Auto) 0 % (0.0-7.0); Granulocytes % (Auto) 83.2 % (38.0-78.0); Lymphocytes # (Auto) 0.6 K/mcL (1.5-4.8); Lymphocytes % (Auto) 8.2 % (15.5-49.0); Mean Cell Volume 80.2 fL (80.0-100.0); Mean Corpuscular HGB Conc 33.3 g/dL (31.0-36.0); Mean Corpuscular Hemoglobin 26.7 pg (26.0-34.0); Monocytes # (Auto) 0.7 K/mcL (0.1-0.9); Monocytes % (Auto) 8.6 % (1.0-12.0); Platelet Count 192 K/mcL (140-440); RBC 3.58 M/mcL (4.50-5.90); Red Cell Distribution Width 15.4 % (11.5-14.5)
[2017-08-21 06:29] LABS: ALT/SGPT 9 U/l (0-40); Alkaline Phosphatase 66 U/L (39-117); Bilirubin,Direct < 0.2 mg/dL (0.0-0.3); Blood Urea Nitrogen 30 mg/dl (8-23); Gamma Glutamyl Transpeptidase 11 U/L (8-61); Magnesium 1.7 mg/dL (1.6-2.5); Uric Acid 6.1 mg/dL (2.5-8.0)
[2017-08-21] MEDS: PANTOPRAZOLE 40 MG VIAL IV SCH ×2 (07:55→17:57)
--- NOTE | 2017-08-21 12:40 | General Surgery Progress Note ---
Subjective Patient reports: feels better, pain is less, no flatus, no bowel movement, afebrile Narrative: Note initiated : 08/21/17 at 12:38 pm Service Date, if different from initiated Date: [] Patient: Melvin Sousa 81 y/o M admitted on 08/19/17 for N/V x 2 Days, Coffee Ground Emesis/Small Bowel Obs. Chief C patient is doing well. He has minimal discomfort. He does not have any chest pain or shortness of breath. He has not had any type of tachyarrhythmia. His heart rate has been regular and less than 80 consistently. He has not had flatus or bowel movement. He does complain of hunger.] Objective Temp Pulse Resp BP Pulse Ox 98.9 F 72 18 137/65 95 08/21/17 08:01 08/20/17 20:00 08/21/17 08:01 08/21/17 08:01 08/21/17 08:01 - Additional Data Intake & Output - Last 24 hours: Intake & Output 08/19/17 08/20/17 08/21/17 08/22/17 05:59 05:59 05:59 05:59 Intake Total 3059 / 3059 4080 / 4080 1000 / 1000 Output Total 1392 / 1392 88 / 88 Balance 1667 / 1667 3992 / 3992 1000 / 1000 Weight 193 lb 8 oz 202 lb 1.6 oz 202 lb 1.6 oz - General physical appearance no distress, other (Very mild incisional discomfort) - ENT no congestion - Neck no venous distension - Respiratory normal expansion, normal respiratory effort, clear to auscultation - Cardiovascular Cardiovascular exam: Present: normal rate and rhythm, RRR, +S1, +S2. Absent: JVD - Abdomen soft, tender (Mild tenderness around incision; good active bowel sounds; moderate distention with tympany) - Integumentary no rash, no growths, no abnormal pigmentation - Neurologic normal coordination, normal sensation - Psychiatric oriented to time, oriented to person, oriented to place, speech is normal, memory intact - Labs 08/21/17 04:32 08/21/17 04:32 Diabetes panel 08/21/17 Range/Units 04:32 Sodium 142 (133-145) mmol/L Potassium 4.4 (3.3-5.1) mmol/L Chloride 104 (96-108) mmol/L Carbon Dioxide 26 (22-30) mmol/L BUN 30 H (8-23) mg/dl Creatinine 1.1 (0.7-1.2) mg/dl Glucose 165 H (70-105) mg/dL Calcium 8.6 (8.6-10.4) mg/dl AST 14 (0-37) U/l ALT 9 (0-40) U/l Alkaline Phosphatase 66 (39-117) U/L Total Protein 6.0 (5.9-8.4) gm/dL Albumin 3.0 L (3.2-5.2) gm/dL Triglycerides 65 (<150) mg/dl Calcium panel 08/21/17 Range/Units 04:32 Calcium 8.6 (8.6-10.4) mg/dl Phosphorus 2.9 (2.7-4.5) mg/dL Albumin 3.0 L (3.2-5.2) gm/dL Pituitary panel 08/21/17 Range/Units 04:32 Sodium 142 (133-145) mmol/L Potassium 4.4 (3.3-5.1) mmol/L Chloride 104 (96-108) mmol/L Carbon Dioxide 26 (22-30) mmol/L BUN 30 H (8-23) mg/dl Creatinine 1.1 (0.7-1.2) mg/dl Glucose 165 H (70-105) mg/dL Calcium 8.6 (8.6-10.4) mg/dl Adrenal panel 08/21/17 Range/Units 04:32 Sodium 142 (133-145) mmol/L Potassium 4.4 (3.3-5.1) mmol/L Chloride 104 (96-108) mmol/L Carbon Dioxide 26 (22-30) mmol/L BUN 30 H (8-23) mg/dl Creatinine 1.1 (0.7-1.2) mg/dl Glucose 165 H (70-105) mg/dL Calcium 8.6 (8.6-10.4) mg/dl Total Bilirubin 0.3 (0.0-1.0) mg/dL AST 14 (0-37) U/l ALT 9 (0-40) U/l Alkaline Phosphatase 66 (39-117) U/L Total Protein 6.0 (5.9-8.4) gm/dL Albumin 3.0 L (3.2-5.2) gm/dL Assessment and Plan (1) Small bowel obstruction Status: Resolved Assessment and plan: Patient is stable except for mild ileus. Will continue nasogastric decompression until he starts to have flatus. Current Visit: Yes (2) Atrial fibrillation with rapid ventricular response Status: Acute Assessment and plan: Controlled cardiac rhythm without tachyarrhythmia Current Visit: Yes (3) Spinal stenosis, cervical region Status: Chronic Current Visit: No (4) DM type 2 (diabetes mellitus, type 2) Status: Chronic Current Visit: No (5) Anticoagulant long-term use Status: Chronic Current Visit: No (6) CAD (coronary artery disease) Status: Chronic Current Visit: No - Time Spent With Patient Total time spent is greater than 50% in coordination of care (as documented) at patient's floor/unit and/or counseling patient:
--- NOTE | 2017-08-21 13:59 | Internal Med Progress Note ---
Medical - PN: Subj Patient information: Note initiated : 08/21/17 at 1:56 pm Service Date, if different from initiated Date: [] Patient: Melvin Sousa a 81 y/o M admitted on 08/19/17 for N/V x 2 Days, Coffee Ground Emesis/Small Bowel Obs. Chief Complaint: [] Interval history: Mr. Sousa is a 81 year old Male with multiple medical issues and a significant cardiac history presented to the ER today with abdominal pain x 2 days started as cramps in the abdomen, mid upper abdomen, non radiating. Thought he had constipation, and therefore took stool softners, this did nto help and his pain worsened the next day, he did pass some stools, but also had nausea and vomiting x 5 This AM his pain progresssed and he was not feeling well, nausea and vomiting x 1, The patient therfore presented to the er In the ER his las showed leucocytosis wbc 16.5, na 135, creat 1.4 CT showed small bowel obstruction. Patient was admitted to the surgery service for further management ON arriving on the floor the patient during evaluation by the surgeon noted that he was having chest pain and paliptations. CHest pain was retrosternal, dull, radiating down the right arm, lasted for 30 mins, associated with palpitations, no sob, dizziness, sweating of blurring of vision. THe patient had irregualr hr and elevated hr, EKG showed new onset ATrial flutter/ fibrillation. Trop done showed trop of 0.04, CK 6, Medicine was consulted for management of these issues Patient is on oxygen, on home asa 81, does not take statin, and declined statin after being expalained the risk of not taking statin. patient on my eval was chest pain free, but still in afib/ flutter with rvr hr around 125, metoprolol x 3 failed. cardizem 20mg iv did not help much I called hte patients primary technical administrator Dr Prince and explained the situation , he advised amiodarone. LIkely that troponin of 0.04 is leak secondary to afib and rvr, but to trend trop August 20 Patient seen examiend aware high risk surgery due to cardiac issues pt went for SX this AM, and came back now in unit for monitoring continue amiodarone drip for now monitor on tele, no e/o recurrence of afib August 21 patient seen examined, no acute overnight issues still not passing gas, or bm patient otherwise doing well no complaints some sorness from sx patient ok to resume home meds hep sq for dvt prophylaxis to wait on coumadin for another day or 2 as per surgery off amio, no tachycardia / afib noted. Pertinent ROS: Denies headache, dizziness Denies chest pain, palpitations Denies cough or shortness of breath Denies abdominal pain, nausea or vomiting. (pain on palpation) - Constitutional Vitals: Vital Signs Temp Pulse Resp BP Pulse Ox 99.0 F H 72 18 144/72 93 08/21/17 12:01 08/20/17 20:00 08/21/17 12:01 08/21/17 12:01 08/21/17 12:01 Period Temp Pulse Resp BP Sys/Viveros Pulse Ox Last 24 Hr 97.7 F-99.0 F 72-72 16-18 126-146/61-79 93-98 Intake and Output 08/20/17 08/21/17 08/21/17 21:59 05:59 13:59 Intake Total 905 / 905 1000 / 1000 1000 / 1000 Output Total Balance 904 / 904 998 / 998 999 / 999 Weight 202 lb 1.6 oz 202 lb 1.6 oz Patient Weight 08/22/17 05:59 Weight 202 lb 1.6 oz Intake & Output: Intake & Output 08/20/17 08/21/17 08/21/17 21:59 05:59 13:59 Intake Total 905 / 905 1000 / 1000 1000 / 1000 Output Total Balance 904 / 904 998 / 998 999 / 999 Weight 202 lb 1.6 oz 202 lb 1.6 oz Intake: IV 905 / 905 1000 / 1000 1000 / 1000 Sodium Chloride 0.9% 1,000 ml @ 905 / 905 1000 / 1000 1000 / 1000 150 mls/hr IV .Q6H40M [facility] Rx#: [id number] Output: # of times incontinent of urine 2 Exam: Constitutional; Afebrile, cooperative, alert, not in distress. Eyes- No icterus, , No periorbital swelling Ears- Ext ear normal, hearing normal to conversation. Neck- Midline trachea, supple, Respiratory system: Air Entry equal on both sides, No crackles or wheezing, no rhonchi. CVS- Rate rhythm regular, S1,S2 heard, no gallop, no rub. Abdomen- Soft mildly tender abdomen. 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 Medical - PN: Obj Da - Labs CBC & Chem 7: 08/21/17 04:32 08/21/17 04:32 Labs: Abnormal Lab Results 08/21/17 08/21/17 08/21/17 04:32 04:32 04:32 WBC RBC 3.58 L Hgb 9.6 L Hct 28.7 L RDW 15.4 H Gran % 83.2 H Lymph % (Auto) 8.2 L Gran # Lymph # (Auto) 0.6 L PT 15.1 H INR 1.2 H Chloride Anion Gap BUN 30 H Creatinine Glucose 165 H CK-MB (CK-2) Troponin T C-Reactive Protein Albumin 3.0 L Globulin Albumin/Globulin Ratio Urine Protein Urine Glucose (UA) Urine Occult Blood Urine RBC Hyaline Casts 08/20/17 08/20/17 08/20/17 03:52 03:52 03:52 WBC RBC Hgb Hct RDW Gran % Lymph % (Auto) Gran # Lymph # (Auto) PT 15.9 H INR 1.2 H Chloride Anion Gap BUN 42 H Creatinine Glucose 198 H CK-MB (CK-2) Troponin T 0.05 H* C-Reactive Protein Albumin Globulin Albumin/Globulin Ratio Urine Protein Urine Glucose (UA) Urine Occult Blood Urine RBC Hyaline Casts 08/20/17 08/19/17 08/19/17 03:52 21:06 15:00 WBC RBC 4.34 L Hgb 11.5 L Hct 35.0 L RDW 15.7 H Gran % Lymph % (Auto) 15.0 L Gran # Lymph # (Auto) 1.4 L PT INR Chloride Anion Gap BUN Creatinine Glucose CK-MB (CK-2) Troponin T 0.05 H* 0.04 H* C-Reactive Protein Albumin Globulin Albumin/Globulin Ratio Urine Protein Urine Glucose (UA) Urine Occult Blood Urine RBC Hyaline Casts 08/19/17 08/19/17 08/19/17 15:00 11:15 09:43 WBC RBC Hgb Hct RDW Gran % Lymph % (Auto) Gran # Lymph # (Auto) PT 21.3 H INR 1.8 H Chloride Anion Gap BUN Creatinine Glucose CK-MB (CK-2) 6.0 H Troponin T C-Reactive Protein Albumin Globulin Albumin/Globulin Ratio Urine Protein 100 A Urine Glucose (UA) 150 A Urine Occult Blood 0.03 A Urine RBC 3 H Hyaline Casts 4 H 08/19/17 08/19/17 09:41 09:41 WBC 16.5 H RBC Hgb Hct RDW 15.6 H Gran % 85.9 H Lymph % (Auto) 8.8 L Gran # 14.2 H Lymph # (Auto) 1.4 L PT INR Chloride 94 L Anion Gap 18.0 H BUN 43 H Creatinine 1.4 H Glucose 284 H CK-MB (CK-2) Troponin T C-Reactive Protein 4.8 H Albumin Globulin 4.2 H Albumin/Globulin Ratio 0.9 L Urine Protein Urine Glucose (UA) Urine Occult Blood Urine RBC Hyaline Casts Meds: Medications Dextrose (Dextrose 50%) 0 ml IV UD PRN PRN Reason: Hypoglycemia Diagnostic Test (Pha) (Accu-Chek) 1 each FS Q6 [facility] Last Admin: 08/21/17 12:20 Dose: 1 each Heparin Sodium (Porcine) (Heparin) 5,000 unit SQ Q12 [facility] Hydromorphone HCl (Dilaudid) 1 mg IV Q4HP PRN PRN Reason: Pain Last Admin: 08/21/17 10:17 Dose: 1 mg Sodium Chloride (Sodium Chloride 0.9%) 1,000 mls @ 150 mls/hr IV .Q6H40M [facility] Last Admin: 08/21/17 09:04 Dose: 150 mls/hr Acetaminophen (Ofirmev) 1,000 mg in 100 mls @ 200 mls/hr IV Q6HP PRN PRN Reason: Pain Imipramine HCl (Tofranil) 10 mg PO BID [facility] Insulin Human Lispro (Humalog) 0 unit SQ Q6 [facility] PRN Reason: Protocol Last Admin: 08/21/17 12:20 Dose: Not Given Levothyroxine Sodium (Synthroid) 75 mcg PO QDAY [facility] Metoclopramide HCl (Reglan) 10 mg IV Q6 [facility] Last Admin: 10/26/17 12:17 Dose: 10 mg Metoprolol Tartrate (Lopressor) 50 mg PO HS [facility] Nitroglycerin (Nitrostat) 0.4 mg SL Q5M PRN PRN Reason: Chest Pain Non-Formulary Medication (Magnesium Oxide [Magnesium]) 400 mg PO DAILY [facility] Non-Formulary Medication (Omeprazole) 20 mg PO QDAY [facility] Pantoprazole Sodium (Protonix) 40 mg IV BIDAC [facility] Last Admin: 08/21/17 07:55 Dose: 40 mg Promethazine HCl (Phenergan) 12.5 mg IV Q4HP PRN PRN Reason: Nausea And Vomiting Medical - PN: A/P - Time Spent With Patient Total time spent is greater than 50% in coordination of care (as documented) at patient's floor/unit and/or counseling patient: - Narrative A/P Narrative: A/P Acute small bowel obstruction new onset afib Chest pain type 2 [place] CAD, h/o pvd, AAA s/p repair HTN DM Leucocytosis h/o dvt and pe on coumadin Plan post op day 1 today, doing well no need for tele as afib is resolved and patient is in sinus. Troponin max was 0.05 which is likely related to tachycadia already on beta blcokers at home for CAD, will adjust dose at discharge, resume home dose of 50 metoprolol xl for now. already on coumadin for dvt. pe, to resume resume warfarin once surgically cleared. 1-2 more days IV fluids sliding scale isulin for now Hep sq dvt Full code npo status. Medical - PN: Qual - VTE Deep Vein Thrombosis/Pulmonary Embolism Present on Admission: No
[2017-08-21] MEDS: IMIPRAMINE 10 MG TABLET PO SCH (20:06)
[2017-08-21] MEDS: METOPROLOL TARTRATE 50 MG TABLET PO SCH ×2 (20:06→22:19)
[2017-08-21] MEDS: HEPARIN 5,000 UNIT/ML VIAL SQ SCH (21:08)
[2017-08-22] MEDS: METOCLOPRAMIDE 10 MG/2 ML VIAL IV SCH ×5 (00:11→23:25)
[2017-08-22] MEDS: INSULIN LISPRO 1 UNIT/0.01 ML UNIT SQ SCH ×5 (00:11→23:25)
[2017-08-22 04:52] LABS: Basophils # (Auto) 0 K/mcL (0.0-0.3); Basophils % (Auto) 0.5 % (0.0-2.0); Eosinophils # (Auto) 0.2 K/mcL (0.0-0.7); Eosinophils % (Auto) 2.3 % (0.0-7.0); Granulocytes % (Auto) 76.6 % (38.0-78.0); Lymphocytes # (Auto) 1.1 K/mcL (1.5-4.8); Mean Cell Volume 81.1 fL (80.0-100.0); Mean Corpuscular Hemoglobin 26.8 pg (26.0-34.0); Monocytes # (Auto) 0.8 K/mcL (0.1-0.9); Monocytes % (Auto) 8.6 % (1.0-12.0); Platelet Count 236 K/mcL (140-440); RBC 3.99 M/mcL (4.50-5.90); Red Cell Distribution Width 15.8 % (11.5-14.5)
[2017-08-22] MEDS: 0.9 % SODIUM CHLORIDE 1,000 ML IV SCH ×4 (04:56→23:29)
[2017-08-22 05:15] LABS: ALT/SGPT 8 U/l (0-40); Albumin 3.1 gm/dL (3.2-5.2); Alkaline Phosphatase 70 U/L (39-117); Bilirubin,Direct < 0.2 mg/dL (0.0-0.3); Blood Urea Nitrogen 20 mg/dl (8-23); Gamma Glutamyl Transpeptidase 13 U/L (8-61); Magnesium 1.6 mg/dL (1.6-2.5); Uric Acid 5.6 mg/dL (2.5-8.0)
[2017-08-22] MEDS ORDERED: MAGNESIUM SULFATE 2 GM/50 ML BAG IV ONE (06:41)
[2017-08-22] MEDS ORDERED: POTASSIUM CHLORIDE 40 MEQ in DEXTROSE 5% IN WATER 500 ML IV ONE (06:41)
[2017-08-22] MEDS ORDERED: OMEPRAZOLE 20 MG CAPSULE PO SCH (07:30)
[2017-08-22] MEDS ORDERED: LEVOTHYROXINE 75 MCG TABLET PO SCH (07:30)
[2017-08-22] MEDS ORDERED: hydrALAZINE 20 MG/ML VIAL IV PRN (08:00)
[2017-08-22] MEDS ORDERED: POTASSIUM PHOSPHATE 40 MEQ in DEXTROSE 5% IN WATER 500 ML IV ONE (08:00)
[2017-08-22] MEDS ORDERED: MAGNESIUM OXIDE 400 MG TABLET PO SCH (09:00)
[2017-08-22] MEDS: IMIPRAMINE 10 MG TABLET PO SCH ×2 (09:30→21:09)
[2017-08-22] MEDS: PANTOPRAZOLE 40 MG VIAL IV SCH ×2 (09:39→16:24)
[2017-08-22] MEDS: HEPARIN 5,000 UNIT/ML VIAL SQ SCH ×2 (09:39→21:08)
[2017-08-22] MEDS ORDERED: ACETAMINOPHEN 1,000 MG/100 ML BOTTLE IV PRN (09:49)
[2017-08-22] MEDS ORDERED: PROMETHAZINE 25 MG/ML VIAL IV PRN (09:49)
[2017-08-22] MEDS ORDERED: NITROGLYCERIN 0.4 MG TAB.SUBL SL PRN (09:49)
[2017-08-22] MEDS ORDERED: DEXTROSE 50% 50 ML VIAL IV PRN (09:49)
[2017-08-22] MEDS ORDERED: HYDROmorphone 2 MG/ML SYRINGE IV PRN (09:49)
[2017-08-22] MEDS ORDERED: FLEETS ADULT ENEMA PR STA (10:04)
--- NOTE | 2017-08-22 10:54 | XRay Report ---
HISTORY: Reason for Exam:abdominal distention, flatus absent , small bowel obstruction FINDINGS: There are still numerous loops of dilated small intestine measuring up to 5 cm in diameter. Small amount of air and stool are present in the cecum. The colon is otherwise decompressed. Stomach is also decompressed by a nasogastric tube. Small intestine measured up to 6 cm in diameter on 08/20/17. IMPRESSION: Persistent distal small bowel obstruction with mild improvement Interpreted and Authenticated by: Quentin Nuñez 08/22/17
[2017-08-22] MEDS ORDERED: POTASSIUM CHLORIDE 20 MEQ in DEXTROSE 5% IN WATER 250 ML IV ONE ×2 (12:00)
[2017-08-22] MEDS: hydrALAZINE 20 MG/ML VIAL IV PRN ×2 (14:07→19:52)
--- NOTE | 2017-08-22 14:32 | General Surgery Progress Note ---
Subjective Patient reports: feels better, still having pain, no flatus, no bowel movement, afebrile Narrative: Note initiated : 08/22/17 at 2:30 pm Service Date, if different from initiated Date: [] Patient: Melvin Sousa 81 y/o M admitted on 08/19/17 for N/V x 2 Days, Coffee Ground Emesis/Small Bowel Obs. Chief Complaint: [Patient is doing well however he has not passed flatus yet and he has significant distention of his abdomen with increased tympany. He has good bowel sounds. Abdominal x-ray shows dilated loops of small bowel extending into the distal bowel with increased stool in the right colon. He was given an enema without much results.] Objective Temp Pulse Resp BP Pulse Ox 98.0 F 68 28 H 182/80 97 08/22/17 11:13 08/22/17 08:00 08/22/17 11:13 08/22/17 12:39 08/22/17 11:13 - Additional Data Intake & Output - Last 24 hours: Intake & Output 08/20/17 08/21/17 08/22/17 08/23/17 05:59 05:59 05:59 05:59 Intake Total 3059 / 3059 4080 / 4080 4123 / 4123 50 / 50 Output Total 1392 / 1392 88 / 88 43 / 43 902 / 902 Balance 1667 / 1667 3992 / 3992 4080 / 4080 -852 / -852 Weight 193 lb 8 oz 202 lb 1.6 oz 204 lb 12.8 oz - General physical appearance no distress - Eyes PERRL - ENT no congestion - Neck no venous distension - Respiratory normal expansion, normal respiratory effort, clear to auscultation - Cardiovascular Cardiovascular exam: Present: irregular rhythm, +S1, +S2 - Abdomen soft, tender (Abdomen is significantly distended; his incision looks good; he has hyperactive bowel sounds), distended - Integumentary no rash, no growths, no abnormal pigmentation - Neurologic normal coordination, normal sensation - Musculoskeletal normal gait, normal posture - Psychiatric oriented to time, oriented to person, oriented to place, speech is normal, memory intact - Labs 08/22/17 04:05 08/22/17 04:05 Diabetes panel 08/22/17 Range/Units 04:05 Sodium 142 (133-145) mmol/L Potassium 3.8 (3.3-5.1) mmol/L Chloride 105 (96-108) mmol/L Carbon Dioxide 24 (22-30) mmol/L BUN 20 (8-23) mg/dl Creatinine 0.8 (0.7-1.2) mg/dl Glucose 109 H (70-105) mg/dL Calcium 8.5 L (8.6-10.4) mg/dl AST 16 (0-37) U/l ALT 8 (0-40) U/l Alkaline Phosphatase 70 (39-117) U/L Total Protein 6.3 (5.9-8.4) gm/dL Albumin 3.1 L (3.2-5.2) gm/dL Triglycerides 103 (<150) mg/dl Calcium panel 08/22/17 Range/Units 04:05 Calcium 8.5 L (8.6-10.4) mg/dl Phosphorus 1.7 L (2.7-4.5) mg/dL Albumin 3.1 L (3.2-5.2) gm/dL Pituitary panel 08/22/17 Range/Units 04:05 Sodium 142 (133-145) mmol/L Potassium 3.8 (3.3-5.1) mmol/L Chloride 105 (96-108) mmol/L Carbon Dioxide 24 (22-30) mmol/L BUN 20 (8-23) mg/dl Creatinine 0.8 (0.7-1.2) mg/dl Glucose 109 H (70-105) mg/dL Calcium 8.5 L (8.6-10.4) mg/dl Adrenal panel 08/22/17 Range/Units 04:05 Sodium 142 (133-145) mmol/L Potassium 3.8 (3.3-5.1) mmol/L Chloride 105 (96-108) mmol/L Carbon Dioxide 24 (22-30) mmol/L BUN 20 (8-23) mg/dl Creatinine 0.8 (0.7-1.2) mg/dl Glucose 109 H (70-105) mg/dL Calcium 8.5 L (8.6-10.4) mg/dl Total Bilirubin 0.5 (0.0-1.0) mg/dL AST 16 (0-37) U/l ALT 8 (0-40) U/l Alkaline Phosphatase 70 (39-117) U/L Total Protein 6.3 (5.9-8.4) gm/dL Albumin 3.1 L (3.2-5.2) gm/dL Assessment and Plan (1) Small bowel obstruction Status: Resolved Assessment and plan: Patient is stable except for mild ileus. Will continue nasogastric decompression until he starts to have flatus. We will give 3 doses of milk of magnesia and check abdominal x-rays in the morning Current Visit: Yes (2) Atrial fibrillation with rapid ventricular response Status: Acute Assessment and plan: Controlled cardiac rhythm without tachyarrhythmia Current Visit: Yes (3) Spinal stenosis, cervical region Status: Chronic Current Visit: No (4) DM type 2 (diabetes mellitus, type 2) Status: Chronic Current Visit: No (5) Anticoagulant long-term use Status: Chronic Current Visit: No (6) CAD (coronary artery disease) Status: Chronic Current Visit: No - Time Spent With Patient Total time spent is greater than 50% in coordination of care (as documented) at patient's floor/unit and/or counseling patient:
--- NOTE | 2017-08-22 14:56 | Internal Med Progress Note ---
Medical - PN: Subj Patient information: Note initiated : 08/22/17 at 2:53 pm Service Date, if different from initiated Date: [] Patient: Melvin Sousa a 81 y/o M admitted on 08/19/17 for N/V x 2 Days, Coffee Ground Emesis/Small Bowel Obs. Chief Complaint: [] Interval history: Mr. Sousa is a 81 year old Male with multiple medical issues and a significant cardiac history presented to the ER today with abdominal pain x 2 days started as cramps in the abdomen, mid upper abdomen, non radiating. Thought he had constipation, and therefore took stool softners, this did nto help and his pain worsened the next day, he did pass some stools, but also had nausea and vomiting x 5 This AM his pain progresssed and he was not feeling well, nausea and vomiting x 1, The patient therfore presented to the er In the ER his las showed leucocytosis wbc 16.5, na 135, creat 1.4 CT showed small bowel obstruction. Patient was admitted to the surgery service for further management ON arriving on the floor the patient during evaluation by the surgeon noted that he was having chest pain and paliptations. CHest pain was retrosternal, dull, radiating down the right arm, lasted for 30 mins, associated with palpitations, no sob, dizziness, sweating of blurring of vision. THe patient had irregualr hr and elevated hr, EKG showed new onset ATrial flutter/ fibrillation. Trop done showed trop of 0.04, CK 6, Medicine was consulted for management of these issues Patient is on oxygen, on home asa 81, does not take statin, and declined statin after being expalained the risk of not taking statin. patient on my eval was chest pain free, but still in afib/ flutter with rvr hr around 125, metoprolol x 3 failed. cardizem 20mg iv did not help much I called hte patients primary computer clerk Dr Prince and explained the situation , he advised amiodarone. LIkely that troponin of 0.04 is leak secondary to afib and rvr, but to trend trop August 20 Patient seen examiend aware high risk surgery due to cardiac issues pt went for SX this AM, and came back now in unit for monitoring continue amiodarone drip for now monitor on tele, no e/o recurrence of afib August 21 patient seen examined, no acute overnight issues still not passing gas, or bm patient otherwise doing well no complaints some sorness from sx patient ok to resume home meds hep sq for dvt prophylaxis to wait on coumadin for another day or 2 as per surgery off amio, no tachycardia / afib noted. August 22 Patient seen examined no acute overnight issues bp elevated needing IV hydralazine no afib on tele HR stable med surg status now, patient npo still except meds still no flatus or BM, surgery aware, plan for milk of magnesemia and enema, repeat X ay in AM replace lytes to keep mg > 2.0, K 4, replace phos Pertinent ROS: Constitutional; Afebrile, cooperative, alert, not in distress. Eyes- No icterus, , No periorbital swelling Ears- Ext ear normal, hearing normal to conversation. Neck- Midline trachea, supple Respiratory system: Air Entry equal on both sides, No crackles or wheezing, no rhonchi. CVS- Rate rhythm regular, S1,S2 heard, no gallop, no rub. 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 - Constitutional Vitals: Vital Signs Temp Pulse Resp BP Pulse Ox 98.0 F 68 28 H 182/80 97 08/22/17 11:13 08/22/17 08:00 08/22/17 11:13 08/22/17 12:39 08/22/17 11:13 Period Temp Pulse Resp BP Sys/Viveros Pulse Ox Last 24 Hr 98.0 F-98.9 F 60-86 16-28 166-193/71-96 92-98 Intake and Output 08/22/17 08/22/17 08/22/17 05:59 13:59 21:59 Intake Total 2022 50 / 50 Output Total 902 / 902 Balance 2022 -852 / -852 Intake & Output: Intake & Output 08/22/17 08/22/17 08/22/17 05:59 13:59 21:59 Intake Total 2022 50 / 50 Output Total 902 / 902 Balance 2022 -852 / -852 Intake: IV 1922 50 / 50 Sodium Chloride 0.9% 1,000 ml @ 1922 150 mls/hr IV .Q6H40M [facility] Rx#: [id number] Oral 100 / 100 Output: Void Amount 900 / 900 # of times incontinent of urine 2 / 2 Other: # Voids 3 # Bowel Movements 0 Exam: Constitutional; Afebrile, cooperative, alert, not in distress. Eyes- No icterus, , No periorbital swelling Ears- Ext ear normal, hearing normal to conversation. Neck- Midline trachea, supple Respiratory system: Air Entry equal on both sides, No crackles or wheezing, no rhonchi. CVS- Rate rhythm regular, S1,S2 heard, no gallop, no rub. 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 Medical - PN: Obj Da - Labs CBC & Chem 7: 08/22/17 04:05 08/22/17 04:05 Labs: Abnormal Lab Results 08/22/17 08/22/17 08/21/17 04:05 04:05 04:32 RBC 3.99 L Hgb 10.7 L Hct 32.4 L RDW 15.8 H Gran % Lymph % (Auto) 12.0 L Lymph # (Auto) 1.1 L PT 15.1 H INR 1.2 H BUN Glucose 109 H Calcium 8.5 L Phosphorus 1.7 L CK-MB (CK-2) Troponin T Albumin 3.1 L 08/21/17 08/21/17 08/20/17 04:32 04:32 03:52 RBC 3.58 L Hgb 9.6 L Hct 28.7 L RDW 15.4 H Gran % 83.2 H Lymph % (Auto) 8.2 L Lymph # (Auto) 0.6 L PT INR BUN 30 H Glucose 165 H Calcium Phosphorus CK-MB (CK-2) Troponin T 0.05 H* Albumin 3.0 L 08/20/17 08/20/17 08/20/17 03:52 03:52 03:52 RBC 4.34 L Hgb 11.5 L Hct 35.0 L RDW 15.7 H Gran % Lymph % (Auto) 15.0 L Lymph # (Auto) 1.4 L PT 15.9 H INR 1.2 H BUN 42 H Glucose 198 H Calcium Phosphorus CK-MB (CK-2) Troponin T Albumin 08/19/17 08/19/17 08/19/17 21:06 15:00 15:00 RBC Hgb Hct RDW Gran % Lymph % (Auto) Lymph # (Auto) PT INR BUN Glucose Calcium Phosphorus CK-MB (CK-2) 6.0 H Troponin T 0.05 H* 0.04 H* Albumin Meds: Medications Dextrose (Dextrose 50%) 0 ml IV UD PRN PRN Reason: Hypoglycemia Diagnostic Test (Pha) (Accu-Chek) 1 each FS Q6 [facility] Last Admin: 08/22/17 11:57 Dose: 1 each Heparin Sodium (Porcine) (Heparin) 5,000 unit SQ Q12 [facility] Hydralazine HCl (Apresoline) 10 mg IV Q4HP PRN PRN Reason: Hypertension Last Admin: 08/22/17 14:07 Dose: 10 mg Hydromorphone HCl (Dilaudid) 1 mg IV Q4HP PRN PRN Reason: Pain Acetaminophen (Ofirmev) 1,000 mg in 100 mls @ 200 mls/hr IV Q6HP PRN PRN Reason: Pain Sodium Chloride (Sodium Chloride 0.9%) 1,000 mls @ 150 mls/hr IV .Q6H40M [facility] Last Admin: 08/22/17 10:09 Dose: Not Given Imipramine HCl (Tofranil) 10 mg PO BID [facility] Insulin Human Lispro (Humalog) 0 unit SQ Q6 [facility] PRN Reason: Protocol Last Admin: 08/22/17 11:58 Dose: 1 unit Levothyroxine Sodium (Synthroid) 75 mcg PO QAMAC [facility] Magnesium Hydroxide (Milk Of Magnesia) 30 ml PO Q4H [facility] Stop: 08/22/17 23:01 Magnesium Oxide (Magnesium Oxide) 400 mg PO DAILY [facility] Metoclopramide HCl (Reglan) 10 mg IV Q6 [facility] Last Admin: 08/22/17 11:22 Dose: 10 mg Metoprolol Tartrate (Lopressor) 50 mg PO HS [facility] Nitroglycerin (Nitrostat) 0.4 mg SL Q5M PRN PRN Reason: Chest Pain Omeprazole (Prilosec) 20 mg PO ACB [facility] Pantoprazole Sodium (Protonix) 40 mg IV BIDAC [facility] Promethazine HCl (Phenergan) 12.5 mg IV Q4HP PRN PRN Reason: Nausea And Vomiting Medical - PN: A/P - Time Spent With Patient Total time spent is greater than 50% in coordination of care (as documented) at patient's floor/unit and/or counseling patient: - Narrative A/P Narrative: A/P Acute small bowel obstruction new onset afib Chest pain type 2 [place] CAD, h/o pvd, AAA s/p repair HTN DM Leucocytosis h/o dvt and pe on coumadin hypokalemia/ Hypomagnesemia/ Hypophosphatemia Plan post op day 2 today, doing well, still no BM or flatus. on med surg now. replace K, Mg and phos. to help with ileus as well as prevent future afib episodes. Already on beta blockers at home for CAD, will adjust dose at discharge, resume home dose of 50 metoprolol xl for now. already on Coumadin for dvt. pe, to resume resume warfarin once surgically cleared. 1-2 more days IV fluids to continue sliding scale insulin for now, diabetic control is reasonable. Hep sq dvt Full code npo status. Medical - PN: Qual - VTE Deep Vein Thrombosis/Pulmonary Embolism Present on Admission: No
[2017-08-22] MEDS: MAGNESIUM HYDROXIDE 30 ML ORAL.SUSP PO SCH ×3 (16:24→23:15)
[2017-08-22] MEDS: METOPROLOL TARTRATE 50 MG TABLET PO SCH (21:08)
[2017-08-22] MEDS: NYSTATIN 500,000 UNITS/5 ML ORAL.SUSP SSP SCH (21:08)
[2017-08-23] MEDS: 0.9 % SODIUM CHLORIDE 1,000 ML IV SCH ×4 (00:35→11:57)
[2017-08-23] MEDS: hydrALAZINE 20 MG/ML VIAL IV PRN ×2 (04:33→22:39)
[2017-08-23] MEDS: METOCLOPRAMIDE 10 MG/2 ML VIAL IV SCH ×3 (05:41→17:43)
[2017-08-23] MEDS: INSULIN LISPRO 1 UNIT/0.01 ML UNIT SQ SCH ×5 (05:41→20:17)
[2017-08-23 05:53] LABS: Basophils # (Auto) 0 K/mcL (0.0-0.3); Basophils % (Auto) 0.1 % (0.0-2.0); Eosinophils # (Auto) 0.1 K/mcL (0.0-0.7); Eosinophils % (Auto) 1.2 % (0.0-7.0); Lymphocytes # (Auto) 1.3 K/mcL (1.5-4.8); Lymphocytes % (Auto) 12.9 % (15.5-49.0); Mean Cell Volume 80.2 fL (80.0-100.0); Mean Corpuscular HGB Conc 33.3 g/dL (31.0-36.0); Mean Corpuscular Hemoglobin 26.7 pg (26.0-34.0); Monocytes # (Auto) 0.8 K/mcL (0.1-0.9); Monocytes % (Auto) 7.8 % (1.0-12.0); Platelet Count 246 K/mcL (140-440); RBC 4.22 M/mcL (4.50-5.90); Red Cell Distribution Width 15.8 % (11.5-14.5)
[2017-08-23 06:11] LABS: ALT/SGPT 9 U/l (0-40); Albumin 3.1 gm/dL (3.2-5.2); Alkaline Phosphatase 70 U/L (39-117); Bilirubin,Direct < 0.2 mg/dL (0.0-0.3); Blood Urea Nitrogen 16 mg/dl (8-23); Gamma Glutamyl Transpeptidase 12 U/L (8-61); Magnesium 1.9 mg/dL (1.6-2.5); Uric Acid 5.6 mg/dL (2.5-8.0)
[2017-08-23] MEDS: LEVOTHYROXINE 75 MCG TABLET PO SCH (07:14)
[2017-08-23] MEDS: PANTOPRAZOLE 40 MG VIAL IV SCH ×2 (07:14→16:28)
[2017-08-23] MEDS: OMEPRAZOLE 20 MG CAPSULE PO SCH (07:14)
[2017-08-23] MEDS: NYSTATIN 500,000 UNITS/5 ML ORAL.SUSP SSP SCH ×4 (08:08→20:17)
[2017-08-23] MEDS: HEPARIN 5,000 UNIT/ML VIAL SQ SCH ×2 (08:08→20:16)
[2017-08-23] MEDS: MAGNESIUM OXIDE 400 MG TABLET PO SCH (08:08)
[2017-08-23] MEDS: IMIPRAMINE 10 MG TABLET PO SCH ×2 (08:09→20:21)
--- NOTE | 2017-08-23 08:59 | XRay Report ---
HISTORY: Reason for Exam:FOLLOW -UP OF SMALL BOWEL OBSTRUCTION FINDINGS: There are several loops of mildly dilated small intestine. Some of these contain air-fluid levels. They measure up to 4.5 mm in diameter. This has improved since yesterday. In addition there is now air in nondilated colon. Nasogastric tube remains in the body of the stomach. There is no free intra-abdominal air. Severe alveolar infiltrates have developed throughout both lungs. These have become worse. The heart is enlarged. IMPRESSION: Resolving small bowel obstruction Worsening infiltrates throughout both lungs which may be ARDS, pneumonia or pulmonary edema Interpreted and Authenticated by: Quentin Nuñez 08/23/17
[2017-08-23] MEDS ORDERED: POTASSIUM CHLORIDE 40 MEQ in DEXTROSE 5% IN WATER 500 ML IV ONE (09:20)
--- NOTE | 2017-08-23 14:36 | Internal Med Progress Note ---
Medical - PN: Subj Patient information: Note initiated : 08/23/17 at 2:33 pm Service Date, if different from initiated Date: [] Patient: Melvin Sousa a 81 y/o M admitted on 08/19/17 for N/V x 2 Days, Coffee Ground Emesis/Small Bowel Obs. Chief Complaint: [] Interval history: Mr. Sousa is a 81 year old Male with multiple medical issues and a significant cardiac history presented to the ER today with abdominal pain x 2 days started as cramps in the abdomen, mid upper abdomen, non radiating. Thought he had constipation, and therefore took stool softners, this did nto help and his pain worsened the next day, he did pass some stools, but also had nausea and vomiting x 5 This AM his pain progresssed and he was not feeling well, nausea and vomiting x 1, The patient therfore presented to the er In the ER his las showed leucocytosis wbc 16.5, na 135, creat 1.4 CT showed small bowel obstruction. Patient was admitted to the surgery service for further management ON arriving on the floor the patient during evaluation by the surgeon noted that he was having chest pain and paliptations. CHest pain was retrosternal, dull, radiating down the right arm, lasted for 30 mins, associated with palpitations, no sob, dizziness, sweating of blurring of vision. THe patient had irregualr hr and elevated hr, EKG showed new onset ATrial flutter/ fibrillation. Trop done showed trop of 0.04, CK 6, Medicine was consulted for management of these issues Patient is on oxygen, on home asa 81, does not take statin, and declined statin after being expalained the risk of not taking statin. patient on my eval was chest pain free, but still in afib/ flutter with rvr hr around 125, metoprolol x 3 failed. cardizem 20mg iv did not help much I called hte patients primary senior physician Dr Prince and explained the situation , he advised amiodarone. LIkely that troponin of 0.04 is leak secondary to afib and rvr, but to trend trop August 20 Patient seen examiend aware high risk surgery due to cardiac issues pt went for SX this AM, and came back now in unit for monitoring continue amiodarone drip for now monitor on tele, no e/o recurrence of afib August 21 patient seen examined, no acute overnight issues still not passing gas, or bm patient otherwise doing well no complaints some sorness from sx patient ok to resume home meds hep sq for dvt prophylaxis to wait on coumadin for another day or 2 as per surgery off amio, no tachycardia / afib noted. August 22 Patient seen examined no acute overnight issues bp elevated needing IV hydralazine no afib on tele HR stable med surg status now, patient npo still except meds still no flatus or BM, surgery aware, plan for milk of magnesemia and enema, repeat X ay in AM replace lytes to keep mg > 2.0, K 4, replace phos august 23 patient seen examined doing much better this AM had bm diet advanced by surgery resume home meds including coumadin replace K monitor. Pertinent ROS: Denies headache, dizziness Denies chest pain, palpitations Denies cough or shortness of breath Denies abdominal pain, nausea or vomiting. - Constitutional Vitals: Vital Signs Temp Pulse Resp BP Pulse Ox 98.3 F 74 20 154/72 94 08/23/17 11:37 08/23/17 04:40 08/23/17 11:37 08/23/17 11:37 08/23/17 11:37 Period Temp Pulse Resp BP Sys/Viveros Pulse Ox Last 24 Hr 98.1 F-98.9 F 63-75 18-24 154-184/71-82 92-96 Intake and Output 08/23/17 08/23/17 08/23/17 05:59 13:59 21:59 Intake Total 1000 / 1000 1000 / 1000 Balance 1000 / 1000 1000 / 1000 Intake & Output: Intake & Output 08/23/17 08/23/17 08/23/17 05:59 13:59 21:59 Intake Total 1000 / 1000 1000 / 1000 Balance 1000 / 1000 1000 / 1000 Intake: IV 1000 / 1000 1000 / 1000 Sodium Chloride 0.9% 1,000 ml @ 1000 / 1000 1000 / 1000 150 mls/hr IV .Q6H40M [facility] Rx#: [id number] Other: # of times incontinent of 3 Bowels Exam: Constitutional; Afebrile, cooperative, alert, not in distress. Eyes- No icterus, , No periorbital swelling Ears- Ext ear normal, hearing normal to conversation. Neck- Midline trachea, supple Respiratory system: Air Entry equal on both sides, No crackles or wheezing, no rhonchi. CVS- Rate rhythm regular, S1,S2 heard, no gallop, no rub. Abdomen- Soft nontender abdomen, no organomegaly, no tenderness, no guarding or rigidity, SLIVER LAP TENDER- AOOx3, moving all extremities, no gross focal deficit noted. Medical - PN: Obj Da - Labs CBC & Chem 7: 08/23/17 04:52 08/23/17 04:52 Labs: Abnormal Lab Results 08/23/17 08/23/17 08/22/17 04:52 04:52 04:05 RBC 4.22 L Hgb 11.3 L Hct 33.8 L RDW 15.8 H Gran % Lymph % (Auto) 12.9 L Lymph # (Auto) 1.3 L PT INR Potassium 3.2 L BUN Glucose 135 H 109 H Calcium 8.5 L Phosphorus 2.0 L 1.7 L Lactate Dehydrogenase 271 H Troponin T Albumin 3.1 L 3.1 L 08/22/17 08/21/17 08/21/17 04:05 04:32 04:32 RBC 3.99 L Hgb 10.7 L Hct 32.4 L RDW 15.8 H Gran % Lymph % (Auto) 12.0 L Lymph # (Auto) 1.1 L PT 15.1 H INR 1.2 H Potassium BUN 30 H Glucose 165 H Calcium Phosphorus Lactate Dehydrogenase Troponin T Albumin 3.0 L 08/21/17 08/20/17 04:32 03:52 RBC 3.58 L Hgb 9.6 L Hct 28.7 L RDW 15.4 H Gran % 83.2 H Lymph % (Auto) 8.2 L Lymph # (Auto) 0.6 L PT INR Potassium BUN Glucose Calcium Phosphorus Lactate Dehydrogenase Troponin T 0.05 H* Albumin Meds: Medications Aspirin (Aspirin) 81 mg PO QDAY [facility] Dextrose (Dextrose 50%) 0 ml IV UD PRN PRN Reason: Hypoglycemia Diagnostic Test (Pha) (Accu-Chek) 1 each FS Q6 [facility] Last Admin: 08/23/17 11:58 Dose: 1 each Heparin Sodium (Porcine) (Heparin) 5,000 unit SQ Q12 [facility] Last Admin: 08/23/17 08:08 Dose: 5,000 unit Hydralazine HCl (Apresoline) 10 mg IV Q4HP PRN PRN Reason: Hypertension Last Admin: 08/23/17 04:33 Dose: 10 mg Hydromorphone HCl (Dilaudid) 1 mg IV Q4HP PRN PRN Reason: Pain Acetaminophen (Ofirmev) 1,000 mg in 100 mls @ 200 mls/hr IV Q6HP PRN PRN Reason: Pain Sodium Chloride (Sodium Chloride 0.9%) 1,000 mls @ 50 mls/hr IV .Q20H [facility] Last Admin: 08/23/17 11:57 Dose: 50 mls/hr Imipramine HCl (Tofranil) 10 mg PO BID [facility] Last Admin: 08/23/17 08:09 Dose: Not Given Insulin Human Lispro (Humalog) 0 unit SQ Q6 [facility] PRN Reason: Protocol Last Admin: 08/23/17 11:58 Dose: 2 unit Levothyroxine Sodium (Synthroid) 75 mcg PO QAMAC [facility] Last Admin: 08/23/17 07:14 Dose: 75 mcg Magnesium Oxide (Magnesium Oxide) 400 mg PO DAILY [facility] Last Admin: 08/23/17 08:08 Dose: 400 mg Metoclopramide HCl (Reglan) 10 mg IV Q6 [facility] Last Admin: 08/23/17 12:10 Dose: 10 mg Metoprolol Tartrate (Lopressor) 50 mg PO HS [facility] Last Admin: 08/22/17 21:08 Dose: 50 mg Nitroglycerin (Nitrostat) 0.4 mg SL Q5M PRN PRN Reason: Chest Pain Non-Formulary Medication (Cholecalciferol (Vitamin D3) [Vitamin D3]) 2,000 unit PO DAILY [facility] Non-Formulary Medication (Cyanocobalamin (Vit B-12)) 2,500 mcg SUBLINGUAL QDAY [facility] Non-Formulary Medication (Multivitamin [Men's Multi-Vitamin]) 1 tab PO QDAY [facility] Non-Formulary Medication ([place]-3 Fatty Acids [Fish Oil Concentrate]) 1,000 mg PO QDAY [facility] Nystatin (Nystatin) 500,000 units SSP QID [facility] Last Admin: 08/23/17 12:33 Dose: 500,000 units Omeprazole (Prilosec) 20 mg PO ACB [facility] Last Admin: 08/23/17 07:14 Dose: 20 mg Pantoprazole Sodium (Protonix) 40 mg IV BIDAC [facility] Last Admin: 08/23/17 07:14 Dose: 40 mg Promethazine HCl (Phenergan) 12.5 mg IV Q4HP PRN PRN Reason: Nausea And Vomiting Warfarin Sodium (Coumadin Per Pharmacy) 1 order PO DAILY@1400 [facility] Medical - PN: A/P - Time Spent With Patient Total time spent is greater than 50% in coordination of care (as documented) at patient's floor/unit and/or counseling patient: - Narrative A/P Narrative: A/P Acute small bowel obstruction new onset afib Chest pain type 2 [place] CAD, h/o pvd, AAA s/p repair HTN DM Leucocytosis h/o dvt and pe on coumadin hypokalemia/ Hypomagnesemia/ Hypophosphatemia Plan post op day today, doing well, had BM on med surg now. replace electrolytes Already on beta blockers at home for CAD, will adjust dose at discharge, resume home dose of 50 metoprolol xl for now. already on Coumadin for dvt. pe, to resume resume warfarin now. IV fluids to continue as per surgery sliding scale insulin for now, diabetic control is reasonable. resume home meds at discharge. Hep sq dvt Full code . Medical - PN: Qual - VTE Deep Vein Thrombosis/Pulmonary Embolism Present on Admission: No
[2017-08-23] MEDS: ASPIRIN 81 MG TAB.CHEW PO SCH (14:58)
[2017-08-23] MEDS ORDERED: WARFARIN 5 MG TABLET PO ONE (16:00)
[2017-08-23] MEDS: METOPROLOL TARTRATE 50 MG TABLET PO SCH (20:16)
[2017-08-24] MEDS: METOCLOPRAMIDE 10 MG/2 ML VIAL IV SCH ×4 (01:43→17:38)
[2017-08-24] MEDS: 0.9 % SODIUM CHLORIDE 1,000 ML IV SCH ×2 (05:05→07:49)
[2017-08-24 06:06] LABS: Basophils # (Auto) 0 K/mcL (0.0-0.3); Basophils % (Auto) 0.2 % (0.0-2.0); Eosinophils # (Auto) 0.1 K/mcL (0.0-0.7); Granulocytes % (Auto) 84.8 % (38.0-78.0); Lymphocytes % (Auto) 8.9 % (15.5-49.0); Mean Cell Volume 80.2 fL (80.0-100.0); Mean Corpuscular HGB Conc 33.5 g/dL (31.0-36.0); Mean Corpuscular Hemoglobin 26.9 pg (26.0-34.0); Monocytes # (Auto) 0.6 K/mcL (0.1-0.9); Monocytes % (Auto) 5.1 % (1.0-12.0); Platelet Count 212 K/mcL (140-440); RBC 3.84 M/mcL (4.50-5.90); Red Cell Distribution Width 15.6 % (11.5-14.5)
[2017-08-24 06:32] LABS: ALT/SGPT 10 U/l (0-40); Albumin 2.8 gm/dL (3.2-5.2); Albumin/Globulin Ratio 0.9 (1.0-2.3); Alkaline Phosphatase 63 U/L (39-117); Bilirubin,Direct < 0.2 mg/dL (0.0-0.3); Blood Urea Nitrogen 14 mg/dl (8-23); Gamma Glutamyl Transpeptidase 12 U/L (8-61); Magnesium 1.8 mg/dL (1.6-2.5); Uric Acid 5.4 mg/dL (2.5-8.0)
[2017-08-24] MEDS: INSULIN LISPRO 1 UNIT/0.01 ML UNIT SQ SCH ×4 (07:09→21:29)
[2017-08-24] MEDS: OMEPRAZOLE 20 MG CAPSULE PO SCH (07:10)
[2017-08-24] MEDS: LEVOTHYROXINE 75 MCG TABLET PO SCH (07:10)
[2017-08-24] MEDS: PANTOPRAZOLE 40 MG VIAL IV SCH ×2 (07:10→16:33)
[2017-08-24] MEDS ORDERED: POTASSIUM CHLORIDE 40 MEQ in DEXTROSE 5% IN WATER 500 ML IV ONE (07:53)
[2017-08-24] MEDS: FISH OIL 1,000 MG CAPSULE PO SCH (08:03)
[2017-08-24] MEDS: NYSTATIN 500,000 UNITS/5 ML ORAL.SUSP SSP SCH ×4 (08:03→21:29)
[2017-08-24] MEDS: HEPARIN 5,000 UNIT/ML VIAL SQ SCH ×2 (08:03→21:29)
[2017-08-24] MEDS: CYANOCOBALAMIN (VITAMIN B-12) 500 MCG TABLET PO SCH (08:04)
[2017-08-24] MEDS: ASPIRIN 81 MG TAB.CHEW PO SCH (08:04)
[2017-08-24] MEDS: MULTIVIT,THER IRON,CA,FA & MIN 1 TABLET PO SCH (08:04)
[2017-08-24] MEDS: MAGNESIUM OXIDE 400 MG TABLET PO SCH (08:04)
[2017-08-24] MEDS: VITAMIN D3 1,000 UNIT TABLET PO SCH (08:04)
[2017-08-24] MEDS: IMIPRAMINE 10 MG TABLET PO SCH ×2 (09:43→21:30)
--- NOTE | 2017-08-24 10:10 | XRay Report ---
HISTORY: Reason for Exam:FOLLOW -UP OF SMALL BOWEL OBSTRUCTION FINDINGS: There is still dilated loops of small intestine measuring up to 4.5 cm. There is more air and stool in the colon today than there was previously. There is no free intra-abdominal air. Severe widespread pulmonary infiltrates are again seen. These have remained stable. The heart remains enlarged. There is no free intra-abdominal air. The nasogastric tube has been removed. IMPRESSION: Stable incomplete distal small bowel obstruction. Severe bilateral pulmonary infiltrates Interpreted and Authenticated by: Quentin Nuñez 08/24/17
--- NOTE | 2017-08-24 10:44 | Internal Med Progress Note ---
Medical - PN: Subj Patient information: Note initiated : 08/24/17 at 10:42 am Service Date, if different from initiated Date: [] Patient: Melvin Sousa a 81 y/o M admitted on 08/19/17 for N/V x 2 Days, Coffee Ground Emesis/Small Bowel Obs. Chief Complaint: [] Interval history: Mr. Sousa is a 81 year old Male with multiple medical issues and a significant cardiac history presented to the ER today with abdominal pain x 2 days started as cramps in the abdomen, mid upper abdomen, non radiating. Thought he had constipation, and therefore took stool softners, this did nto help and his pain worsened the next day, he did pass some stools, but also had nausea and vomiting x 5 This AM his pain progresssed and he was not feeling well, nausea and vomiting x 1, The patient therfore presented to the er In the ER his las showed leucocytosis wbc 16.5, na 135, creat 1.4 CT showed small bowel obstruction. Patient was admitted to the surgery service for further management ON arriving on the floor the patient during evaluation by the surgeon noted that he was having chest pain and paliptations. CHest pain was retrosternal, dull, radiating down the right arm, lasted for 30 mins, associated with palpitations, no sob, dizziness, sweating of blurring of vision. THe patient had irregualr hr and elevated hr, EKG showed new onset ATrial flutter/ fibrillation. Trop done showed trop of 0.04, CK 6, Medicine was consulted for management of these issues Patient is on oxygen, on home asa 81, does not take statin, and declined statin after being expalained the risk of not taking statin. patient on my eval was chest pain free, but still in afib/ flutter with rvr hr around 125, metoprolol x 3 failed. cardizem 20mg iv did not help much I called hte patients primary material man Dr Prince and explained the situation , he advised amiodarone. LIkely that troponin of 0.04 is leak secondary to afib and rvr, but to trend trop August 20 Patient seen examiend aware high risk surgery due to cardiac issues pt went for SX this AM, and came back now in unit for monitoring continue amiodarone drip for now monitor on tele, no e/o recurrence of afib August 21 patient seen examined, no acute overnight issues still not passing gas, or bm patient otherwise doing well no complaints some sorness from sx patient ok to resume home meds hep sq for dvt prophylaxis to wait on coumadin for another day or 2 as per surgery off amio, no tachycardia / afib noted. August 22 Patient seen examined no acute overnight issues bp elevated needing IV hydralazine no afib on tele HR stable med surg status now, patient npo still except meds still no flatus or BM, surgery aware, plan for milk of magnesemia and enema, repeat X ay in AM replace lytes to keep mg > 2.0, K 4, replace phos august 23 patient seen examined doing much better this AM had bm diet advanced by surgery resume home meds including coumadin replace K monitor. August 24 patient seen examined no acute ovenright events still weak having bm needs oxygen still, but is complaint with IS patient to get repeat CXR today, wbc mildly up K still low replace IV. Pertinent ROS: Denies headache, dizziness Denies chest pain, palpitations Denies cough or shortness of breath Denies abdominal pain, nausea or vomiting. - Constitutional Vitals: Vital Signs Temp Pulse Resp BP Pulse Ox 98.3 F 70 20 146/79 91 08/24/17 07:00 08/24/17 06:12 08/24/17 07:00 08/24/17 07:00 08/24/17 07:00 Period Temp Pulse Resp BP Sys/Viveros Pulse Ox Last 24 Hr 98.1 F-99.1 F 67-72 16-20 146-186/71-90 90-96 Intake and Output 08/23/17 08/24/17 08/24/17 21:59 05:59 13:59 Intake Total 200 / 200 1057 / 1057 Output Total 2 / 2 502 / 502 150 / 150 Balance 198 / 198 555 / 555 -150 / -150 Weight 210 lb Intake & Output: Intake & Output 08/23/17 08/24/17 08/24/17 21:59 05:59 13:59 Intake Total 200 / 200 1057 / 1057 Output Total 2 / 2 502 / 502 150 / 150 Balance 198 / 198 555 / 555 -150 / -150 Weight 210 lb Intake: IV 857 / 857 Sodium Chloride 0.9% 1,000 ml @ 857 / 857 50 mls/hr IV .Q20H [facility] Rx#: [id number] Oral 200 / 200 200 / 200 Output: Void Amount 500 / 500 150 / 150 # of times incontinent of urine 2 / 2 2 / 2 Other: Meal Lunch Percent of Meal Consumed 100% # Voids 1 1 # Bowel Movements 1 1 # of times incontinent of 1 1 Bowels Exam: Constitutional; Afebrile, cooperative, alert, not in distress. Eyes- No icterus, , No periorbital swelling Ears- Ext ear normal, hearing normal to conversation. Neck- Midline trachea, supple Respiratory system: Air Entry equal on both sides, No crackles or wheezing, no rhonchi. CVS- Rate rhythm regular, S1,S2 heard, no gallop, no rub. Abdomen- Soft nontender abdomen, no organomegaly, no tenderness, no guarding or rigidity, PHYSIOTHERAPY ASSISTANT- AOOx3, moving all extremities, no gross focal deficit noted. Medical - PN: Obj Da - Labs CBC & Chem 7: 08/24/17 04:30 08/24/17 04:30 Labs: Abnormal Lab Results 08/24/17 08/24/17 08/24/17 04:35 04:30 04:30 WBC 11.5 H RBC 3.84 L Hgb 10.3 L Hct 30.8 L RDW 15.6 H Gran % 84.8 H Lymph % (Auto) 8.9 L Gran # 9.8 H Lymph # (Auto) 1.0 L PT 15.6 H INR 1.2 H Potassium 3.2 L Glucose 146 H Calcium 8.2 L Phosphorus 1.7 L Lactate Dehydrogenase Total Protein 5.8 L Albumin 2.8 L Albumin/Globulin Ratio 0.9 L 08/23/17 08/23/17 08/23/17 14:50 04:52 04:52 WBC RBC 4.22 L Hgb 11.3 L Hct 33.8 L RDW 15.8 H Gran % Lymph % (Auto) 12.9 L Gran # Lymph # (Auto) 1.3 L PT 14.8 H INR Potassium 3.2 L Glucose 135 H Calcium Phosphorus 2.0 L Lactate Dehydrogenase 271 H Total Protein Albumin 3.1 L Albumin/Globulin Ratio 08/22/17 08/22/17 04:05 04:05 WBC RBC 3.99 L Hgb 10.7 L Hct 32.4 L RDW 15.8 H Gran % Lymph % (Auto) 12.0 L Gran # Lymph # (Auto) 1.1 L PT INR Potassium Glucose 109 H Calcium 8.5 L Phosphorus 1.7 L Lactate Dehydrogenase Total Protein Albumin 3.1 L Albumin/Globulin Ratio Meds: Medications Aspirin (Aspirin) 81 mg PO QDAY [facility] Last Admin: 08/24/17 08:04 Dose: 81 mg Cyanocobalamin (Vitamin B-12) 2,500 mcg PO DAILY [facility] Last Admin: 08/24/17 08:04 Dose: 2,500 mcg Dextrose (Dextrose 50%) 0 ml IV UD PRN PRN Reason: Hypoglycemia Fish Oil (Fish Oil) 1,000 mg PO DAILY [facility] Last Admin: 08/24/17 08:03 Dose: 1,000 mg Heparin Sodium (Porcine) (Heparin) 5,000 unit SQ Q12 [facility] Last Admin: 08/24/17 08:03 Dose: 5,000 unit Hydralazine HCl (Apresoline) 10 mg IV Q4HP PRN PRN Reason: Hypertension Last Admin: 08/23/17 22:39 Dose: 10 mg Hydromorphone HCl (Dilaudid) 1 mg IV Q4HP PRN PRN Reason: Pain Acetaminophen (Ofirmev) 1,000 mg in 100 mls @ 200 mls/hr IV Q6HP PRN PRN Reason: Pain Sodium Chloride (Sodium Chloride 0.9%) 1,000 mls @ 50 mls/hr IV .Q20H [facility] Last Admin: 08/24/17 07:49 Dose: Not Given Potassium Chloride 40 meq/ (Dextrose) 520 mls @ 130 mls/hr IV ONCE ONE Stop: 08/24/17 11:52 Last Admin: 08/24/17 08:41 Dose: 130 mls/hr Imipramine HCl (Tofranil) 10 mg PO BID [facility] Last Admin: 08/24/17 09:43 Dose: Not Given Insulin Human Lispro (Humalog) 0 unit SQ ACHS [facility] PRN Reason: Protocol Last Admin: 08/24/17 07:09 Dose: Not Given Iron Carb/Multivit/[place]/Folic Acid (Multivitamin W/Minerals) 1 tab PO DAILY [facility] Last Admin: 08/24/17 08:04 Dose: 1 tab Levothyroxine Sodium (Synthroid) 75 mcg PO QAMAC [facility] Last Admin: 08/24/17 07:10 Dose: 75 mcg Magnesium Oxide (Magnesium Oxide) 400 mg PO DAILY [facility] Last Admin: 08/24/17 08:04 Dose: 400 mg Metoclopramide HCl (Reglan) 10 mg IV Q6 [facility] Last Admin: 08/24/17 06:34 Dose: 10 mg Metoprolol Tartrate (Lopressor) 50 mg PO HS [facility] Last Admin: 08/23/17 20:16 Dose: 50 mg Nitroglycerin (Nitrostat) 0.4 mg SL Q5M PRN PRN Reason: Chest Pain Nystatin (Nystatin) 500,000 units SSP QID [facility] Last Admin: 08/24/17 08:03 Dose: 500,000 units Omeprazole (Prilosec) 20 mg PO ACB [facility] Last Admin: 08/24/17 07:10 Dose: 20 mg Pantoprazole Sodium (Protonix) 40 mg IV BIDAC [facility] Last Admin: 08/24/17 07:10 Dose: 40 mg Promethazine HCl (Phenergan) 12.5 mg IV Q4HP PRN PRN Reason: Nausea And Vomiting Vitamin D (Vitamin D3) 2,000 unit PO DAILY [facility] Last Admin: 08/24/17 08:04 Dose: 2,000 unit Warfarin Sodium (Coumadin Per Pharmacy) 1 order PO UD [facility] Warfarin Sodium (Coumadin) 5 mg PO ONCE@1400 ONE Stop: 08/24/17 14:01 Medical - PN: A/P - Time Spent With Patient Total time spent is greater than 50% in coordination of care (as documented) at patient's floor/unit and/or counseling patient: - Narrative A/P Narrative: A/P Acute small bowel obstruction new onset afib Chest pain type 2 [place] CAD, h/o pvd, AAA s/p repair HTN DM Leucocytosis h/o dvt and pe on coumadin hypokalemia/ Hypomagnesemia/ Hypophosphatemia Plan wbc uptrended, check procalcitonin and x ray chest contiues to do well, doing well, had BM on med surg now. replace K iv Already on beta blockers at home for CAD, will adjust dose at discharge, resume home dose of 50 metoprolol xl for now. already on Coumadin for dvt. pe, to resume resume warfarin now. IV fluids to continue as per surgery sliding scale insulin for now, diabetic control is reasonable. resume home meds at discharge. Hep sq dvt Full code . Medical - PN: Qual - VTE Deep Vein Thrombosis/Pulmonary Embolism Present on Admission: No
[2017-08-24] MEDS ORDERED: MAGNESIUM HYDROXIDE 30 ML ORAL.SUSP PO PRN (12:03)
--- NOTE | 2017-08-24 12:18 | General Surgery Progress Note ---
Subjective Patient reports: feels better, pain is less, tolerating liquids well, flatus, bowel movement, diarrhea, afebrile Narrative: Note initiated : 08/24/17 at 12:16 pm Service Date, if different from initiated Date: [] Patient: Melvin Sousa 81 y/o M admitted on 08/19/17 for N/V x 2 Days, Coffee Ground Emesis/Small Bowel Obs. Chief Complaint: [Patient is doing better but he has significant abdominal distention. He had multiple bowel movements and has had a large volume of flatus however his abdominal x-rays shows dilated loops of small bowel with gas throughout his colon. This is compatible with his adynamic ileus. He is tolerating liquid diet without nausea or crampy abdominal pain. He has been afebrile.] Objective Temp Pulse Resp BP Pulse Ox 98.1 F 70 20 154/89 91 08/24/17 11:32 08/24/17 06:12 08/24/17 11:32 08/24/17 11:32 08/24/17 11:32 - Additional Data Intake & Output - Last 24 hours: Intake & Output 08/22/17 08/23/17 08/24/17 08/25/17 05:59 05:59 05:59 05:59 Intake Total 4123 / 4123 1050 / 1050 2257 / 2257 Output Total 43 / 43 1302 / 1302 505 / 505 150 / 150 Balance 4080 / 4080 -252 / -252 1752 / 1752 -150 / -150 Weight 204 lb 12.8 oz 209 lb 8 oz 210 lb - General physical appearance no distress, no pain - Eyes PERRL - ENT no congestion - Neck no venous distension - Respiratory normal respiratory effort, clear to auscultation - Cardiovascular Cardiovascular exam: Present: normal rate and rhythm, +S1, +S2, tachycardia. Absent: JVD - Abdomen soft, tender (Mild tenderness around the incision but otherwise benign abdomen with good active bowel sounds. He does have significant distention and tympany with percussion), distended - Integumentary no rash, no growths, no abnormal pigmentation - Neurologic normal coordination, normal sensation - Musculoskeletal other (Needs a walker for assistance) - Psychiatric oriented to time, oriented to person, oriented to place, speech is normal, memory intact - Labs 08/24/17 04:30 08/24/17 04:30 Diabetes panel 08/24/17 Range/Units 04:30 Sodium 140 (133-145) mmol/L Potassium 3.2 L (3.3-5.1) mmol/L Chloride 104 (96-108) mmol/L Carbon Dioxide 23 (22-30) mmol/L BUN 14 (8-23) mg/dl Creatinine 0.8 (0.7-1.2) mg/dl Glucose 146 H (70-105) mg/dL Calcium 8.2 L (8.6-10.4) mg/dl AST 14 (0-37) U/l ALT 10 (0-40) U/l Alkaline Phosphatase 63 (39-117) U/L Total Protein 5.8 L (5.9-8.4) gm/dL Albumin 2.8 L (3.2-5.2) gm/dL Triglycerides 110 (<150) mg/dl Calcium panel 08/24/17 Range/Units 04:30 Calcium 8.2 L (8.6-10.4) mg/dl Phosphorus 1.7 L (2.7-4.5) mg/dL Albumin 2.8 L (3.2-5.2) gm/dL Pituitary panel 08/24/17 Range/Units 04:30 Sodium 140 (133-145) mmol/L Potassium 3.2 L (3.3-5.1) mmol/L Chloride 104 (96-108) mmol/L Carbon Dioxide 23 (22-30) mmol/L BUN 14 (8-23) mg/dl Creatinine 0.8 (0.7-1.2) mg/dl Glucose 146 H (70-105) mg/dL Calcium 8.2 L (8.6-10.4) mg/dl Adrenal panel 08/24/17 Range/Units 04:30 Sodium 140 (133-145) mmol/L Potassium 3.2 L (3.3-5.1) mmol/L Chloride 104 (96-108) mmol/L Carbon Dioxide 23 (22-30) mmol/L BUN 14 (8-23) mg/dl Creatinine 0.8 (0.7-1.2) mg/dl Glucose 146 H (70-105) mg/dL Calcium 8.2 L (8.6-10.4) mg/dl Total Bilirubin 0.4 (0.0-1.0) mg/dL AST 14 (0-37) U/l ALT 10 (0-40) U/l Alkaline Phosphatase 63 (39-117) U/L Total Protein 5.8 L (5.9-8.4) gm/dL Albumin 2.8 L (3.2-5.2) gm/dL Assessment and Plan (1) Small bowel obstruction Status: Resolved Assessment and plan: Patient is stable except for mild ileus. Will repeat milk of magnesia 3 and repeat abdominal x-rays in the morning. Potassium and phosphorus will be repleted with 2 potassium phosphate riders Current Visit: Yes (2) Atrial fibrillation with rapid ventricular response Status: Acute Assessment and plan: Controlled cardiac rhythm without tachyarrhythmia Current Visit: Yes (3) Spinal stenosis, cervical region Status: Chronic Current Visit: No (4) DM type 2 (diabetes mellitus, type 2) Status: Chronic Current Visit: No (5) Anticoagulant long-term use Status: Chronic Current Visit: No (6) CAD (coronary artery disease) Status: Chronic Current Visit: No - Time Spent With Patient Total time spent is greater than 50% in coordination of care (as documented) at patient's floor/unit and/or counseling patient:
[2017-08-24] MEDS: POTASSIUM PHOSPHATE 40 MEQ in DEXTROSE 5% IN WATER 500 ML IV SCH ×2 (13:08→19:50)
[2017-08-24] MEDS ORDERED: FUROSEMIDE 40 MG/4 ML VIAL IV ONE (13:20)
[2017-08-24] MEDS ORDERED: WARFARIN 5 MG TABLET PO ONE (14:00)
--- NOTE | 2017-08-24 14:50 | XRay Report ---
HISTORY: Reason for Exam:pna vs fibrosis. FINDINGS: There are generalized alveolar opacities in both lungs with the greatest involvement around the left upper hilum and medially in the right lower lobe. These have become significantly worse since 08/19/17. The heart is mild to moderately enlarged and has increased in size since the . The pulmonary vessels are engorged. No pleural effusion is seen. There is no lobar consolidation or evidence of a pulmonary mass. There are sternal wires IMPRESSION: Increased cardiomegaly with bilateral alveolar opacities. This more likely due to congestive heart failure with pulmonary edema rather than widespread pneumonia. Based upon the prior CT in 2016 the patient does have underlying emphysema. Interpreted and Authenticated by: Quentin Nuñez 08/24/17
[2017-08-24] MEDS: METOPROLOL TARTRATE 50 MG TABLET PO SCH (21:29)
[2017-08-25] MEDS: METOCLOPRAMIDE 10 MG/2 ML VIAL IV SCH ×4 (00:05→17:36)
[2017-08-25 06:17] LABS: Basophils # (Auto) 0 K/mcL (0.0-0.3); Basophils % (Auto) 0.3 % (0.0-2.0); Eosinophils # (Auto) 0.4 K/mcL (0.0-0.7); Eosinophils % (Auto) 4.8 % (0.0-7.0); Granulocytes % (Auto) 68.9 % (38.0-78.0); Lymphocytes # (Auto) 1.7 K/mcL (1.5-4.8); Lymphocytes % (Auto) 18.1 % (15.5-49.0); Mean Cell Volume 80.6 fL (80.0-100.0); Mean Corpuscular HGB Conc 32.9 g/dL (31.0-36.0); Mean Corpuscular Hemoglobin 26.6 pg (26.0-34.0); Monocytes # (Auto) 0.7 K/mcL (0.1-0.9); Monocytes % (Auto) 7.9 % (1.0-12.0); Platelet Count 233 K/mcL (140-440); RBC 3.85 M/mcL (4.50-5.90); Red Cell Distribution Width 15.9 % (11.5-14.5)
[2017-08-25 06:44] LABS: ALT/SGPT 12 U/l (0-40); Albumin 2.8 gm/dL (3.2-5.2); Alkaline Phosphatase 62 U/L (39-117); Bilirubin,Direct < 0.2 mg/dL (0.0-0.3); Blood Urea Nitrogen 11 mg/dl (8-23); Gamma Glutamyl Transpeptidase 11 U/L (8-61); Magnesium 1.7 mg/dL (1.6-2.5)
[2017-08-25] MEDS: INSULIN LISPRO 1 UNIT/0.01 ML UNIT SQ SCH ×4 (07:21→22:48)
[2017-08-25] MEDS: OMEPRAZOLE 20 MG CAPSULE PO SCH (07:21)
[2017-08-25] MEDS: PANTOPRAZOLE 40 MG VIAL IV SCH ×2 (07:21→17:22)
[2017-08-25] MEDS: LEVOTHYROXINE 75 MCG TABLET PO SCH (07:21)
[2017-08-25] MEDS ORDERED: MAGNESIUM SULFATE 2 GM/50 ML BAG IV ONE (07:38)
[2017-08-25] MEDS ORDERED: FUROSEMIDE 40 MG/4 ML VIAL IV ONE (07:38)
[2017-08-25] MEDS ORDERED: POTASSIUM CHLORIDE 40 MEQ in DEXTROSE 5% IN WATER 500 ML IV ONE (08:00)
--- NOTE | 2017-08-25 08:31 | XRay Report ---
CLINICAL INFORMATION: Small bowel obstruction COMPARISON: 08/24/2017 FINDINGS: Multiple loops of moderately dilated small bowel in the midabdomen show no significant change. The distal small bowel and colon are decompressed and contains only minimal amounts of gas and stool. No free air or soft tissue mass. Aortobiiliac graft and IVC filter are both in stable, satisfactory position as no evidence of breakage IMPRESSION: Moderate grade partial small bowel obstruction - stable Interpreted and Authenticated by: Ky Ray 08/25/17
[2017-08-25] MEDS: VITAMIN D3 1,000 UNIT TABLET PO SCH (09:32)
[2017-08-25] MEDS: ASPIRIN 81 MG TAB.CHEW PO SCH (09:32)
[2017-08-25] MEDS: MULTIVIT,THER IRON,CA,FA & MIN 1 TABLET PO SCH (09:32)
[2017-08-25] MEDS: CYANOCOBALAMIN (VITAMIN B-12) 500 MCG TABLET PO SCH (09:32)
[2017-08-25] MEDS: MAGNESIUM OXIDE 400 MG TABLET PO SCH (09:32)
[2017-08-25] MEDS: NYSTATIN 500,000 UNITS/5 ML ORAL.SUSP SSP SCH ×4 (09:32→22:48)
[2017-08-25] MEDS: FISH OIL 1,000 MG CAPSULE PO SCH (09:33)
[2017-08-25] MEDS: HEPARIN 5,000 UNIT/ML VIAL SQ SCH ×2 (10:02→22:48)
[2017-08-25] MEDS: IMIPRAMINE 10 MG TABLET PO SCH ×2 (10:04→22:49)
[2017-08-25] MEDS ORDERED: WARFARIN 7.5 MG TABLET PO ONE (14:00)
--- NOTE | 2017-08-25 16:38 | General Surgery Progress Note ---
Subjective Patient reports: feels better, pain is less, tolerating liquids well, flatus, bowel movement, afebrile Narrative: Note initiated : 08/25/17 at 4:35 pm Service Date, if different from initiated Date: [] Patient: Melvin Sousa 81 y/o M admitted on 08/19/17 for N/V x 2 Days, Coffee Ground Emesis/Small Bowel Obs. Chief Complaint: [PATIENT FEELS MUCH BETTER. He denies any shortness of breath but he does have dyspnea on exertion. He is unable to get out of to get to the bathroom and has been incontinent of stool. His by mouth intake is better. He is not strong enough to be discharged home so arrangements will be made for him to go to A penitentiary facility. ] Objective Temp Pulse Resp BP Pulse Ox 97.2 F 67 20 148/80 92 08/25/17 15:29 08/25/17 08:45 08/25/17 15:29 08/25/17 15:29 08/25/17 15:29 - Additional Data Intake & Output - Last 24 hours: Intake & Output 08/23/17 08/24/17 08/25/17 08/26/17 05:59 05:59 05:59 05:59 Intake Total 1050 / 1050 2257 / 2257 559.0909 / 559.0909 150 / 150 Output Total 1302 / 1302 505 / 505 2396 / 2396 3077 / 3077 Balance -252 / -252 1752 / 1752 -1836.9091 / -1836.9091 -2927 / -2927 Weight 209 lb 8 oz 210 lb 209 lb 209 lb - General physical appearance no distress, moderate pain, chronically ill - Eyes PERRL - ENT no congestion - Neck no venous distension - Respiratory normal respiratory effort, clear to auscultation - Cardiovascular Cardiovascular exam: Present: irregular rhythm, +S1, +S2. Absent: JVD - Abdomen soft, non tender, bowel sounds (good active bowel sounds with mild tenderness . Incision looks good) - Integumentary no rash, no growths, no abnormal pigmentation - Neurologic normal sensation - Musculoskeletal other (poor gait without assistance) - Psychiatric oriented to time, oriented to person, oriented to place, speech is normal, memory intact - Labs 08/25/17 04:25 08/25/17 04:25 Diabetes panel 10/30/17 Range/Units 04:25 Sodium 138 (133-145) mmol/L Potassium 3.7 (3.3-5.1) mmol/L Chloride 100 (96-108) mmol/L Carbon Dioxide 26 (22-30) mmol/L BUN 11 (8-23) mg/dl Creatinine 0.7 (0.7-1.2) mg/dl Glucose 150 H (70-105) mg/dL Calcium 8.3 L (8.6-10.4) mg/dl AST 20 (0-37) U/l ALT 12 (0-40) U/l Alkaline Phosphatase 62 (39-117) U/L Total Protein 5.7 L (5.9-8.4) gm/dL Albumin 2.8 L (3.2-5.2) gm/dL Triglycerides 109 (<150) mg/dl Calcium panel 08/25/17 Range/Units 04:25 Calcium 8.3 L (8.6-10.4) mg/dl Phosphorus 3.2 (2.7-4.5) mg/dL Albumin 2.8 L (3.2-5.2) gm/dL Pituitary panel 08/25/17 Range/Units 04:25 Sodium 138 (133-145) mmol/L Potassium 3.7 (3.3-5.1) mmol/L Chloride 100 (96-108) mmol/L Carbon Dioxide 26 (22-30) mmol/L BUN 11 (8-23) mg/dl Creatinine 0.7 (0.7-1.2) mg/dl Glucose 150 H (70-105) mg/dL Calcium 8.3 L (8.6-10.4) mg/dl Adrenal panel 08/25/17 Range/Units 04:25 Sodium 138 (133-145) mmol/L Potassium 3.7 (3.3-5.1) mmol/L Chloride 100 (96-108) mmol/L Carbon Dioxide 26 (22-30) mmol/L BUN 11 (8-23) mg/dl Creatinine 0.7 (0.7-1.2) mg/dl Glucose 150 H (70-105) mg/dL Calcium 8.3 L (8.6-10.4) mg/dl Total Bilirubin 0.4 (0.0-1.0) mg/dL AST 20 (0-37) U/l ALT 12 (0-40) U/l Alkaline Phosphatase 62 (39-117) U/L Total Protein 5.7 L (5.9-8.4) gm/dL Albumin 2.8 L (3.2-5.2) gm/dL Assessment and Plan (1) Small bowel obstruction Status: Resolved Assessment and plan: Patient is stable except for mild ileus. Will repeat milk of magnesia 3 and repeat abdominal x-rays in the morning. possible discharge in the morning Current Visit: Yes (2) Atrial fibrillation with rapid ventricular response Status: Acute Assessment and plan: Controlled cardiac rhythm without tachyarrhythmia Current Visit: Yes (3) Spinal stenosis, cervical region Status: Chronic Current Visit: No (4) DM type 2 (diabetes mellitus, type 2) Status: Chronic Current Visit: No (5) Anticoagulant long-term use Status: Chronic Current Visit: No (6) CAD (coronary artery disease) Status: Chronic Current Visit: No - Time Spent With Patient Total time spent is greater than 50% in coordination of care (as documented) at patient's floor/unit and/or counseling patient:
--- NOTE | 2017-08-25 16:44 | Internal Med Progress Note ---
Medical - PN: Subj Patient information: Note initiated : 08/25/17 at 4:42 pm Service Date, if different from initiated Date: [] Patient: Melvin Sousa a 81 y/o M admitted on 08/19/17 for N/V x 2 Days, Coffee Ground Emesis/Small Bowel Obs. Chief Complaint: [] Interval history: Mr. Sousa is a 81 year old Male with multiple medical issues and a significant cardiac history presented to the ER today with abdominal pain x 2 days started as cramps in the abdomen, mid upper abdomen, non radiating. Thought he had constipation, and therefore took stool softners, this did nto help and his pain worsened the next day, he did pass some stools, but also had nausea and vomiting x 5 This AM his pain progresssed and he was not feeling well, nausea and vomiting x 1, The patient therfore presented to the er In the ER his las showed leucocytosis wbc 16.5, na 135, creat 1.4 CT showed small bowel obstruction. Patient was admitted to the surgery service for further management ON arriving on the floor the patient during evaluation by the surgeon noted that he was having chest pain and paliptations. CHest pain was retrosternal, dull, radiating down the right arm, lasted for 30 mins, associated with palpitations, no sob, dizziness, sweating of blurring of vision. THe patient had irregualr hr and elevated hr, EKG showed new onset ATrial flutter/ fibrillation. Trop done showed trop of 0.04, CK 6, Medicine was consulted for management of these issues Patient is on oxygen, on home asa 81, does not take statin, and declined statin after being expalained the risk of not taking statin. patient on my eval was chest pain free, but still in afib/ flutter with rvr hr around 125, metoprolol x 3 failed. cardizem 20mg iv did not help much I called hte patients primary paper hanger Dr Prince and explained the situation , he advised amiodarone. LIkely that troponin of 0.04 is leak secondary to afib and rvr, but to trend trop August 20 Patient seen examiend aware high risk surgery due to cardiac issues pt went for SX this AM, and came back now in unit for monitoring continue amiodarone drip for now monitor on tele, no e/o recurrence of afib August 21 patient seen examined, no acute overnight issues still not passing gas, or bm patient otherwise doing well no complaints some sorness from sx patient ok to resume home meds hep sq for dvt prophylaxis to wait on coumadin for another day or 2 as per surgery off amio, no tachycardia / afib noted. August 22 Patient seen examined no acute overnight issues bp elevated needing IV hydralazine no afib on tele HR stable med surg status now, patient npo still except meds still no flatus or BM, surgery aware, plan for milk of magnesemia and enema, repeat X ay in AM replace lytes to keep mg > 2.0, K 4, replace phos august 23 patient seen examined doing much better this AM had bm diet advanced by surgery resume home meds including coumadin replace K monitor. August 24 patient seen examined no acute ovenright events still weak having bm needs oxygen still, but is complaint with IS patient to get repeat CXR today, wbc mildly up K still low replace IV. august 25 Pt seen examine,d no acute overnight events pt tolerating po ok, home meds resumed replace lytes plan for d/c to snf as per surgery one dose of lasix today Pertinent ROS: Denies headache, dizziness Denies chest pain, palpitations Denies cough or shortness of breath Denies abdominal pain, nausea or vomiting. - Constitutional Vitals: Vital Signs Temp Pulse Resp BP Pulse Ox 97.2 F 67 20 148/80 92 08/25/17 15:29 08/25/17 08:45 08/25/17 15:29 08/25/17 15:29 08/25/17 15:29 Period Temp Pulse Resp BP Sys/Viveros Pulse Ox Last 24 Hr 96.7 F-98.5 F 63-67 16-20 148-168/75-95 92-96 Intake and Output 08/25/17 08/25/17 08/25/17 05:59 13:59 21:59 Intake Total 50 / 50 150 / 150 Output Total 400 / 400 2241 / 2241 836 / 836 Balance -350 / -350 -2241 / -2241 -686 / -686 Weight 209 lb Patient Weight 08/26/17 05:59 Weight 209 lb Intake & Output: Intake & Output 08/25/17 08/25/17 08/25/17 05:59 13:59 21:59 Intake Total 50 / 50 150 / 150 Output Total 400 / 400 2241 / 2241 836 / 836 Balance -350 / -350 -2241 / -2241 -686 / -686 Weight 209 lb Intake: Oral 50 / 50 150 / 150 Output: Void Amount 400 / 400 2240 / 2240 835 / 835 # of times incontinent of urine Other: # Voids 1 1 1 # of times incontinent of 1 1 Bowels Exam: Constitutional; Afebrile, cooperative, alert, not in distress. Eyes- No icterus, , No periorbital swelling Ears- Ext ear normal, hearing normal to conversation. Neck- Midline trachea, supple Respiratory system: Air Entry equal on both sides, No crackles or wheezing, no rhonchi. CVS- Rate rhythm regular, S1,S2 heard, no gallop, no rub. Abdomen- Soft nontender abdomen, no organomegaly, no tenderness, no guarding or rigidity, [employer]- AOOx3, moving all extremities, no gross focal deficit noted. Medical - PN: Obj Da - Labs CBC & Chem 7: 08/25/17 04:25 08/25/17 04:25 Labs: Abnormal Lab Results 08/25/17 08/25/17 08/25/17 04:25 04:25 04:25 WBC RBC 3.85 L Hgb 10.2 L Hct 31.1 L RDW 15.9 H Gran % Lymph % (Auto) Gran # Lymph # (Auto) PT 16.6 H INR 1.3 H Potassium Glucose 150 H Calcium 8.3 L Phosphorus Lactate Dehydrogenase 255 H Total Protein 5.7 L Albumin 2.8 L Albumin/Globulin Ratio 08/24/17 08/24/17 08/24/17 04:35 04:30 04:30 WBC 11.5 H RBC 3.84 L Hgb 10.3 L Hct 30.8 L RDW 15.6 H Gran % 84.8 H Lymph % (Auto) 8.9 L Gran # 9.8 H Lymph # (Auto) 1.0 L PT 15.6 H INR 1.2 H Potassium 3.2 L Glucose 146 H Calcium 8.2 L Phosphorus 1.7 L Lactate Dehydrogenase Total Protein 5.8 L Albumin 2.8 L Albumin/Globulin Ratio 0.9 L 08/23/17 08/23/17 08/23/17 14:50 04:52 04:52 WBC RBC 4.22 L Hgb 11.3 L Hct 33.8 L RDW 15.8 H Gran % Lymph % (Auto) 12.9 L Gran # Lymph # (Auto) 1.3 L PT 14.8 H INR Potassium 3.2 L Glucose 135 H Calcium Phosphorus 2.0 L Lactate Dehydrogenase 271 H Total Protein Albumin 3.1 L Albumin/Globulin Ratio Meds: Medications Aspirin (Aspirin) 81 mg PO QDAY [facility] Last Admin: 08/25/17 09:32 Dose: 81 mg Cyanocobalamin (Vitamin B-12) 2,500 mcg PO DAILY [facility] Last Admin: 08/25/17 09:32 Dose: 2,500 mcg Dextrose (Dextrose 50%) 0 ml IV UD PRN PRN Reason: Hypoglycemia Fish Oil (Fish Oil) 1,000 mg PO DAILY [facility] Last Admin: 08/25/17 09:33 Dose: 1,000 mg Heparin Sodium (Porcine) (Heparin) 5,000 unit SQ Q12 [facility] Last Admin: 08/25/17 10:02 Dose: 5,000 unit Hydralazine HCl (Apresoline) 10 mg IV Q4HP PRN PRN Reason: Hypertension Last Admin: 08/23/17 22:39 Dose: 10 mg Hydromorphone HCl (Dilaudid) 1 mg IV Q4HP PRN PRN Reason: Pain Acetaminophen (Ofirmev) 1,000 mg in 100 mls @ 200 mls/hr IV Q6HP PRN PRN Reason: Pain Imipramine HCl (Tofranil) 10 mg PO BID [facility] Last Admin: 08/25/17 10:04 Dose: Not Given Insulin Human Lispro (Humalog) 0 unit SQ ACHS [facility] PRN Reason: Protocol Last Admin: 08/25/17 11:38 Dose: 3 unit Iron Carb/Multivit/[place]/Folic Acid (Multivitamin W/Minerals) 1 tab PO DAILY [facility] Last Admin: 08/25/17 09:32 Dose: 1 tab Levothyroxine Sodium (Synthroid) 75 mcg PO QAMAC [facility] Last Admin: 08/25/17 07:21 Dose: 75 mcg Magnesium Hydroxide (Milk Of Magnesia) 30 ml PO DAILYP PRN PRN Reason: Constipation Magnesium Hydroxide (Milk Of Magnesia) 30 ml PO DAILY [facility] Magnesium Oxide (Magnesium Oxide) 400 mg PO DAILY [facility] Last Admin: 08/25/17 09:32 Dose: 400 mg Metoclopramide HCl (Reglan) 10 mg IV Q6 [facility] Last Admin: 08/25/17 11:48 Dose: 10 mg Metoprolol Tartrate (Lopressor) 50 mg PO HS [facility] Last Admin: 08/24/17 21:29 Dose: 50 mg Nitroglycerin (Nitrostat) 0.4 mg SL Q5M PRN PRN Reason: Chest Pain Nystatin (Nystatin) 500,000 units SSP QID [facility] Last Admin: 08/25/17 12:33 Dose: 500,000 units Omeprazole (Prilosec) 20 mg PO ACB [facility] Last Admin: 08/25/17 07:21 Dose: 20 mg Pantoprazole Sodium (Protonix) 40 mg IV BIDAC [facility] Last Admin: 08/25/17 07:21 Dose: 40 mg Promethazine HCl (Phenergan) 12.5 mg IV Q4HP PRN PRN Reason: Nausea And Vomiting Simethicone (Mylicon) 160 mg CHEWED QIDP [facility] Stop: 08/28/17 16:44 Vitamin D (Vitamin D3) 2,000 unit PO DAILY [facility] Last Admin: 08/25/17 09:32 Dose: 2,000 unit Warfarin Sodium (Coumadin Per Pharmacy) 1 order PO UD [facility] Medical - PN: A/P - Time Spent With Patient Total time spent is greater than 50% in coordination of care (as documented) at patient's floor/unit and/or counseling patient: - Narrative A/P Narrative: A/P Acute small bowel obstruction new onset afib Chest pain type 2 DE CAD, h/o pvd, AAA s/p repair HTN DM Leucocytosis h/o dvt and pe on coumadin hypokalemia/ Hypomagnesemia/ Hypophosphatemia Plan procalcitonin 0.11, iv lasix given x 2 to help with hypoxia and pulmonary congestion. contiues to do well, doing well. on med surg now. replace K iv Already on beta blockers at home for CAD, will adjust dose at discharge if needed, but it seems that the pt will not need it , resume home dose of 50 metoprolol xl for now. already on Coumadin for dvt. pe, to resume resume warfarin now. sliding scale insulin for now, diabetic control is reasonable. resume home meds at discharge. Hep sq dvt Full code . Medical - PN: Qual - VTE Deep Vein Thrombosis/Pulmonary Embolism Present on Admission: No
[2017-08-25] MEDS ORDERED: SIMETHICONE 80 MG TAB.CHEW CHEWED SCH (16:45)
[2017-08-25] MEDS: METOPROLOL TARTRATE 50 MG TABLET PO SCH (22:47)
[2017-08-26] MEDS: METOCLOPRAMIDE 10 MG/2 ML VIAL IV SCH ×3 (00:39→12:08)
[2017-08-26] MEDS: LEVOTHYROXINE 75 MCG TABLET PO SCH (07:30)
[2017-08-26] MEDS: PANTOPRAZOLE 40 MG VIAL IV SCH (07:30)
[2017-08-26] MEDS: OMEPRAZOLE 20 MG CAPSULE PO SCH (07:30)
[2017-08-26] MEDS: INSULIN LISPRO 1 UNIT/0.01 ML UNIT SQ SCH (08:28)
[2017-08-26] MEDS: MULTIVIT,THER IRON,CA,FA & MIN 1 TABLET PO SCH (08:58)
[2017-08-26] MEDS: HEPARIN 5,000 UNIT/ML VIAL SQ SCH (08:58)
[2017-08-26] MEDS: FISH OIL 1,000 MG CAPSULE PO SCH (08:58)
[2017-08-26] MEDS: NYSTATIN 500,000 UNITS/5 ML ORAL.SUSP SSP SCH ×2 (08:58→14:00)
[2017-08-26] MEDS: ASPIRIN 81 MG TAB.CHEW PO SCH (08:58)
[2017-08-26] MEDS: VITAMIN D3 1,000 UNIT TABLET PO SCH (08:58)
[2017-08-26] MEDS: CYANOCOBALAMIN (VITAMIN B-12) 500 MCG TABLET PO SCH (08:58)
[2017-08-26] MEDS: MAGNESIUM OXIDE 400 MG TABLET PO SCH (08:58)
[2017-08-26] MEDS: IMIPRAMINE 10 MG TABLET PO SCH (08:59)
[2017-08-26] MEDS ORDERED: MAGNESIUM HYDROXIDE 30 ML ORAL.SUSP PO SCH (09:00)
--- NOTE | 2017-08-26 11:47 | XRay Report ---
CLINICAL INFORMATION: Small bowel obstruction COMPARISON: 08/25/2017 FINDINGS: There are multiple loops of mildly dilated small bowel in the central abdomen which show slight decreased in caliber from yesterday. There is still relative decompression of the colon. No free air, organomegaly or soft tissue mass IMPRESSION: Slight improvement in distal small bowel obstruction pattern. Consider water-soluble contrast small bowel follow-through Interpreted and Authenticated by: Ky Ray 08/26/17
[2017-08-26 12:28] LABS: Basophils # (Auto) 0 K/mcL (0.0-0.3); Basophils % (Auto) 0.3 % (0.0-2.0); Eosinophils # (Auto) 0.2 K/mcL (0.0-0.7); Eosinophils % (Auto) 2.4 % (0.0-7.0); Granulocytes % (Auto) 76.6 % (38.0-78.0); Lymphocytes # (Auto) 1.3 K/mcL (1.5-4.8); Lymphocytes % (Auto) 13.3 % (15.5-49.0); Mean Cell Volume 79.9 fL (80.0-100.0); Mean Corpuscular HGB Conc 33.5 g/dL (31.0-36.0); Mean Corpuscular Hemoglobin 26.8 pg (26.0-34.0); Monocytes # (Auto) 0.7 K/mcL (0.1-0.9); Monocytes % (Auto) 7.4 % (1.0-12.0); Platelet Count 285 K/mcL (140-440); RBC 4.46 M/mcL (4.50-5.90)
[2017-08-26 12:33] LABS: ALT/SGPT 22 U/l (0-40); Albumin 3.4 gm/dL (3.2-5.2); Albumin/Globulin Ratio 1.1 (1.0-2.3); Alkaline Phosphatase 74 U/L (39-117); Blood Urea Nitrogen 13 mg/dl (8-23)
--- NOTE | 2017-08-26 12:57 | Discharge Summary ---
Providers - Providers Patient information: Note initiated : 08/26/17 at 12:51 pm Service Date, if different from initiated Date: [] Patient: Melvin Sousa 81 y/o M admitted on 08/19/17 for N/V x 2 Days, Coffee Ground Emesis/Small Bowel Obs. Chief Complaint: [] Date of admission: 08/19/17 Discharge date: 08/26/17 Attending physician: Ronan Ying Hospitalization Hospital course: 81-year-old male who was admitted via the emergency room with a small bowel obstruction. He also had elevated PT INR. When he arrived on the floor he had atrial fibrillation with rapid ventricular response. This was treated medically and he converted during the evening He received vitamin K and fresh frozen plasma to correct his ProTime. He subsequently underwent exploratory laparotomy where he was found to have a single band constricting the base of the small bowel mesentery and causing proximal obstruction of the jejunum with totally decompressed ileum and the colon. The bowel was dusky but rapidly regained motility and normal color after the band was released. The bowel was inspected from ligament of Treitz to ileocecal valve and was otherwise unremarkable. In the postoperative period he had decreased intestinal activity with adynamic ileus. He was treated with Reglan and later was given milk of magnesia which easily traversed the GI tract and he had multiple bowel movements and pass large volume of flatus. He has tolerated full liquids without difficulty and he has had regular bowel movements for the past 3 days. His pro time has gradually returned to near therapeutic level. He had some pulmonary congestion but that has also improved. He is stable and will be allowed to be transferred to longterm facility for more physical rehabilitation [facility] he is unable to care for himself and his is unable to assist him out of bed and up to the bathroom. 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 ; stable History of coronary artery disease status post coronary artery bypass graft, stable Reason for admission: abdominal pain with nausea and vomiting Procedures: exploratory laparotomy with adhesiolysis Pertinent studies/significant findings: CT of abdomen and pelvis with IV contrast Complications: none Exam Temp Pulse Resp BP Pulse Ox 98.5 F 64 16 142/78 92 08/26/17 12:00 08/26/17 12:00 08/26/17 12:00 08/26/17 12:00 08/26/17 12:00 - General physical appearance well developed, well nourished, no distress, moderate pain - Eyes PERRL, normal ocular movement - ENT normal pinna, normal nares, normal mucosa, no congestion, decreased hearing - Head Head exam IM: Present: atraumatic, normocephalic - Neck no masses, no bruits, trachea midline, no lymphadectomy, no venous distension - Cardiovascular Cardiovascular exam IM: Present: irregular rhythm, +S1, +S2. Absent: JVD - Respiratory normal expansion, normal respiratory effort, clear to percussion, clear to auscultation - Abdomen Abdomen: Present: soft, tender, bowel sounds, surgical scars Hernia: Present: none - Genitourinary Present: normal penis with no external lesions - Integumentary Present: no rash, no growths, no abnormal pigmentation - Neurologic Present: normal coordination, normal sensation - Musculoskeletal Present: normal gait, normal posture, other (the patient needs assistance with gait and mobility) - Psychiatric Present: oriented to time, oriented to person, oriented to place, speech is normal, memory intact Discharge Plan - Patient/Caregiver Discharge Instructions Activity: as per physical therapy Diet: Regular Diet, Consistent Carbohydrate Additional Instructions: follow-up in the office in 10 days for staple removal May remove outer dressing and replace if needed Prescriptions: Insulin Lispro [Humalog] See Protocol SQ ACHS #1 unit - Follow up Plan Follow up with: Curtis Ruiz MD [Primary Care Provider] - Ronan Ying MD [Physician] - Disposition: Xfer SNF Prognosis: Fair Rehab Potential: Good I certify that the patient requires SNF services.: Yes Overall status at discharge: patient is not back to baseline Pending Studies Resuscitation Status Full Code Diet Full Liquid Diet Start Sat Aug 23 Lunch Aspirin (Aspirin) 81 mg PO QDAY [facility] Last Admin: 08/26/17 08:58 Dose: 81 mg Admin: 08/25/17 09:32 Dose: 81 mg Admin: 08/24/17 08:04 Dose: 81 mg Admin: 08/23/17 14:58 Dose: 81 mg Cyanocobalamin (Vitamin B-12) 2,500 mcg PO DAILY [facility] Last Admin: 08/26/17 08:58 Dose: 2,500 mcg Admin: 08/25/17 09:32 Dose: 2,500 mcg Admin: 08/24/17 08:04 Dose: 2,500 mcg Fish Oil (Fish Oil) 1,000 mg PO DAILY [facility] Last Admin: 08/26/17 08:58 Dose: 1,000 mg Admin: 08/25/17 09:33 Dose: 1,000 mg Admin: 08/24/17 08:03 Dose: 1,000 mg Heparin Sodium (Porcine) (Heparin) 5,000 unit SQ Q12 [facility] Last Admin: 08/26/17 08:58 Dose: 5,000 unit Admin: 08/25/17 22:48 Dose: 5,000 unit Admin: 08/25/17 10:02 Dose: 5,000 unit Admin: 08/24/17 21:29 Dose: 5,000 unit Admin: 08/24/17 08:03 Dose: 5,000 unit Admin: 08/23/17 20:16 Dose: 5,000 unit Admin: 08/23/17 08:08 Dose: 5,000 unit Admin: 08/22/17 21:08 Dose: 5,000 unit Hydralazine HCl (Apresoline) 10 mg IV Q4HP PRN PRN Reason: Hypertension Last Admin: 08/23/17 22:39 Dose: 10 mg Admin: 08/23/17 04:33 Dose: 10 mg Admin: 08/22/17 19:52 Dose: 10 mg Admin: 08/22/17 14:07 Dose: 10 mg Imipramine HCl (Tofranil) 10 mg PO BID [facility] Last Admin: 08/26/17 08:59 Dose: Not Given Admin: 08/25/17 22:49 Dose: Admin: 08/25/17 10:04 Dose: Not Given Admin: 08/24/17 21:30 Dose: Not Given Admin: 08/24/17 09:43 Dose: Not Given Admin: 08/23/17 20:21 Dose: Not Given Admin: 08/23/17 08:09 Dose: Admin: 08/22/17 21:09 Dose: Not Given Iron Carb/Multivit/Multi Site Leasing Consultant/Folic Acid (Multivitamin W/Minerals) 1 tab PO DAILY [facility] Last Admin: 08/26/17 08:58 Dose: 1 tab Admin: 08/25/17 09:32 Dose: 1 tab Admin: 08/24/17 08:04 Dose: 1 tab Levothyroxine Sodium (Synthroid) 75 mcg PO QAMAC [facility] Last Admin: 08/26/17 07:30 Dose: 75 mcg Admin: 08/25/17 07:21 Dose: 75 mcg Admin: 08/24/17 07:10 Dose: 75 mcg Admin: 08/23/17 07:14 Dose: 75 mcg Magnesium Hydroxide (Milk Of Magnesia) 30 ml PO DAILY [facility] Last Admin: 08/26/17 08:58 Dose: 30 ml Magnesium Oxide (Magnesium Oxide) 400 mg PO DAILY [facility] Last Admin: 08/26/17 08:58 Dose: 400 mg Admin: 08/25/17 09:32 Dose: 400 mg Admin: 08/24/17 08:04 Dose: 400 mg Admin: 08/23/17 08:08 Dose: 400 mg Metoclopramide HCl (Reglan) 10 mg IV Q6 [facility] Last Admin: 08/26/17 12:08 Dose: 10 mg Admin: 08/26/17 06:42 Dose: 10 mg Admin: 08/26/17 00:39 Dose: 10 mg Admin: 08/25/17 17:36 Dose: 10 mg Admin: 08/25/17 11:48 Dose: 10 mg Admin: 08/25/17 06:12 Dose: 10 mg Admin: 08/25/17 00:05 Dose: 10 mg Admin: 08/24/17 17:38 Dose: 10 mg Admin: 08/24/17 11:32 Dose: 10 mg Admin: 08/24/17 06:34 Dose: 10 mg Admin: 08/24/17 01:43 Dose: 10 mg Admin: 08/23/17 17:43 Dose: 10 mg Admin: 08/23/17 12:10 Dose: 10 mg Admin: 08/23/17 05:41 Dose: 10 mg Admin: 08/22/17 23:25 Dose: 10 mg Admin: 08/22/17 17:43 Dose: 10 mg Admin: 08/22/17 11:22 Dose: 10 mg Metoprolol Tartrate (Lopressor) 50 mg PO HS [facility] Last Admin: 08/25/17 22:47 Dose: 50 mg Admin: 10/29/17 21:29 Dose: 50 mg Admin: 08/23/17 20:16 Dose: 50 mg Admin: 08/22/17 21:08 Dose: 50 mg Nystatin (Nystatin) 500,000 units SSP QID [facility] Last Admin: 08/26/17 08:58 Dose: 500,000 units Admin: 08/25/17 22:48 Dose: Not Given Admin: 08/25/17 17:22 Dose: 500,000 units Admin: 08/25/17 12:33 Dose: 500,000 units Admin: 08/25/17 09:32 Dose: 500,000 units Admin: 08/24/17 21:29 Dose: 500,000 units Admin: 08/24/17 16:32 Dose: 500,000 units Admin: 08/24/17 13:16 Dose: 500,000 units Admin: 08/24/17 08:03 Dose: 500,000 units Admin: 08/23/17 20:17 Dose: 500,000 units Admin: 08/23/17 16:27 Dose: 500,000 units Admin: 08/23/17 12:33 Dose: 500,000 units Admin: 08/23/17 08:08 Dose: 500,000 units Admin: 08/22/17 21:08 Dose: 500,000 units Omeprazole (Prilosec) 20 mg PO ACB [facility] Last Admin: 08/26/17 07:30 Dose: 20 mg Admin: 08/25/17 07:21 Dose: 20 mg Admin: 08/24/17 07:10 Dose: 20 mg Admin: 08/23/17 07:14 Dose: 20 mg Pantoprazole Sodium (Protonix) 40 mg IV BIDAC [facility] Last Admin: 08/26/17 07:30 Dose: 40 mg Admin: 08/25/17 17:22 Dose: 40 mg Admin: 08/25/17 07:21 Dose: 40 mg Admin: 08/24/17 16:33 Dose: 40 mg Admin: 08/24/17 07:10 Dose: 40 mg Admin: 08/23/17 16:28 Dose: 40 mg Admin: 08/23/17 07:14 Dose: 40 mg Admin: 08/22/17 16:24 Dose: 40 mg Vitamin D (Vitamin D3) 2,000 unit PO DAILY [facility] Last Admin: 08/26/17 08:58 Dose: 2,000 unit Admin: 08/25/17 09:32 Dose: 2,000 unit Admin: 08/24/17 08:04 Dose: 2,000 unit Shift Summary 08/26/17 03:50 Shift Summary by Mery Morales Pt A&O, up with 2 assist to BSC. midline abd incsion with osmel, covered with tegaderm. Abd remains firm, although is non-tender. active BT and is passing flatus. Pt has redness and excoriation to buttock, Calazime cream applied as well as frequent turns with pillows for protection. Uses urinal at bedside. Poss DC to [facility], referral was made yesterday. Initialized on 08/26/17 03:50 - END OF NOTE
[2017-08-26] MEDS ORDERED: WARFARIN 7.5 MG TABLET PO ONE (14:00)
--- NOTE | 2017-08-26 16:19 | Operative Note ---
DATE OF OPERATION: 08/20/2017 PREOPERATIVE DIAGNOSIS: Small bowel obstruction. POSTOPERATIVE DIAGNOSIS: Small bowel obstruction due to intraperitoneal adhesions. PROCEDURE: Exploratory laparotomy with adhesiolysis. SURGEON: Ronan Ying M.D. FINDINGS: Adhesive bands across the base of the small bowel mesentery with complete obstruction. DESCRIPTION: Under general anesthesia, the patient's abdomen was prepped and draped in a sterile field. Timeout procedure was carried out as per protocol. Midline incision was made above and below the umbilicus. There was a small amount of free fluid in the peritoneal cavity. There were dilated, somewhat ecchymotic, reddened loops of proximal bowel and totally decompressed, small, feathery distal bowel. The incision was extended so that I could get the dilated loops of bowel out of the peritoneal cavity. Once this was done, I noticed that there were adhesions across the base of the small bowel mesentery that was constricting the mesentery, as well as the wall of the distal jejunum. These bands were lysed without difficulty. This completely released the obstruction of the mesentery, as well as the lumen of the bowel. Liquid was pushed from the proximal bowel into the uninvolved, nondilated distal bowel. The bowel was then totally pulled from the peritoneal cavity and was inspected from the ligament of Treitz to the ileocecal valve. The colon was decompressed and was unremarkable. The bowel was pushed back into the peritoneal cavity. Irrigation was carried out. Sponge, needle, instrument, and blade counts were verified as correct. The fascia was closed with running locking #1 Prolene. Subcutaneous fat was closed with 2-0 Monocryl. The skin was closed with osmel. The patient tolerated the procedure well. He was awakened, transferred to a bed and taken to the postanesthetic care unit in stable, satisfactory condition. [email or web address] Job ID: [id number] Doc ID: [id number] Ronan Ying M.D.
--- NOTE | 2017-08-26 20:31 | Discharge Summary ---
Medical - DS: Prov Patient information: Note initiated : 08/26/17 at 8:27 pm Service Date, if different from initiated Date: [] Patient: Melvin Sousa 81 y/o M admitted on 08/19/17 for N/V x 2 Days, Coffee Ground Emesis/Small Bowel Obs. Chief Complaint: [] Date of admission: 08/19/17 14:20 Discharge date: 08/26/17 Primary care physician: Curtis Ruiz Admitting clinician: Ronan Ying Consults: 08/19/17 12:45 Consult to Physician [CONS] Stat Comment: Consulting Provider: Ronan Ying Reason For Exam: Physician to Consult 08/19/17 14:58 Consult to Physician [CONS] Routine Comment: Consulting Provider: Ruy Santiago Reason For Exam: Physician to Consult Flornia Donohue Attending physician on discharge: Ronan Ying Medical - DS: Meds - Discharge Medications Prescriptions: Insulin Lispro [Humalog] See Protocol SQ ACHS #1 unit Active and Home Medications: Discharge medications: Aspirin 81 mg daily Vitamin D 2000 units daily B12 2500 sublingual daily Heparin 5000 units subcu every 12 Imipramine 10 mg twice daily Low-dose Humalog sliding scale Levothyroxine 50 mcg daily Milk of magnesia daily as needed Magnesium oxide 400 mg daily Metformin ER 500 mg every afternoon Metoprolol 50 mg nightly Multivitamin 1 daily Nitroglycerin as needed sublingual Nystatin 500,000 units swish and spit 4 times daily Fish oil 1000 mg daily Omeprazole 20 mg daily Simethicone 160 mg 4 times daily as needed Warfarin 5 mg daily Previous home Medications aspirin 81 mg chewable tablet 81 mg PO QDAY 09/19/15 [History Confirmed Last Taken 08/17/17 08:00 81 mg.] cyanocobalamin (vit B-12) 2,500 mcg sublingual tablet 2,500 mcg SUBLINGUAL QDAY 09/19/15 [History Confirmed 08/19/17 Last Taken 08/17/17 09:00 250 mcg] levothyroxine 50 mcg tablet 75 mcg PO QDAY 09/19/15 [History Confirmed 08/19/17 Last Taken 08/17/17 07:30 50 mcg] metformin ER 500 mg tablet,extended release 24 hr 500 mg PO QPM tab 09/19/15 [ History Confirmed 08/19/17 Last Taken 08/17/17 17:00 500 mg.] metoprolol tartrate 50 mg tablet 50 mg PO HS 09/19/15 [History Confirmed Last Taken 08/17/17 09:00 50 mg.] multivitamin tablet 1 tab PO QDAY 09/19/15 [History Confirmed 08/19/17 Last Taken 08/17/17 09:00 1 tab] omega-3 fatty acids 1,000 mg capsule 1,000 mg PO QDAY 09/19/15 [History Confirmed 08/19/17 Last Taken 08/17/17 09:00 1000 mg.] omeprazole 20 mg tablet,delayed release 20 mg PO QDAY 09/19/15 [History Confirmed 08/19/17 Last Taken 08/17/17 07:30 20 mg.] warfarin 5 mg tablet 5 mg PO QDAY 06/12/16 [History Confirmed 08/19/17 Last Taken 08/17/17 14:00 5 mg.] imipramine 10 mg tablet 10 mg PO BID #60 tab 04/15/17 [Rx Confirmed 08/19/17 Last Taken 08/17/17 21:00 10 mg.] Cholecalciferol (Vitamin D3) [Vitamin D3] 2,000 unit PO DAILY 08/19/17 [History Confirmed 08/19/17 Last Taken 08/17/17 09:00 2000 units] Magnesium Oxide [Magnesium] 400 mg PO DAILY 08/19/17 [History Confirmed Last Taken 08/17/17 09:00 400 mg.] Heparin 5,000 unit SQ Q12 vial 08/25/17 [Rx Last Taken Unknown] Insulin Lispro [Humalog] See Protocol SQ ACHS #1 unit 08/25/17 [Rx Last Taken Unknown] Magnesium Hydroxide [Milk of Magnesia] 30 ml PO DAILY oral.susp 08/25/17 [Rx Last Taken Unknown] Nitroglycerin [Nitrostat] 0.4 mg SL Q5M PRN tab.subl 08/25/17 [Rx Last Taken Unknown] Nystatin 500,000 units SSP QID oral.susp 08/25/17 [Rx Last Taken Unknown] Simethicone [Mylicon] 160 mg CHEWED QIDP tab.chew 08/25/17 [Rx Last Taken Unknown] Medical - DS: Hosp Hospital course: Mr. Sousa is a 81 year old M History of present illness: August 19, 2017: Mr. Sousa is a 81 year old Male with multiple medical issues and a significant cardiac history presented to the ER today with abdominal pain x 2 days started as cramps in the abdomen, mid upper abdomen, non radiating. Thought he had constipation, and therefore took stool softners, this did nto help and his pain worsened the next day, he did pass some stools, but also had nausea and vomiting x 5 This AM his pain progresssed and he was not feeling well, nausea and vomiting x 1, The patient therfore presented to the er. In the ER his las showed leucocytosis wbc 16.5, na 135, creat 1.4 CT showed small bowel obstruction. Patient was admitted to the surgery service for further management. ON arriving on the floor the patient during evaluation by the surgeon noted that he was having chest pain and paliptations. CHest pain was retrosternal, dull, radiating down the right arm, lasted for 30 mins, associated with palpitations, no sob, dizziness, sweating of blurring of vision. THe patient had irregualr hr and elevated hr, EKG showed new onset ATrial flutter/ fibrillation. Trop done showed trop of 0.04, CK 6, Medicine was consulted for management of these issues. Hospital course: -Patient was admitted for management of a small bowel obstruction. -He did have an episode of chest pain, as well as atrial fibrillation. He did not respond well to IV diltiazem. Case was reviewed with Dr. Prince, who advised amiodarone drip. Patient subsequently converted back to sinus rhythm. -For small bowel obstruction, patient was taken to the OR for exploratory laparotomy and lysis of adhesions. He received several doses of laxatives to help with constipation. He has since done quite well, and is tolerating an oral diet at this time. Today, the patient had no particular complaints. He denies fever chills, chest pain or palpitations, shortness of breath. Abdomen is a little bit distended, but he says that is chronic for him. He denies nausea or vomiting, diarrhea or constipation. He denies dysuria. Next On exam, vital signs are within normal limits. Neck is supple without lymphadenopathy or JVD. Cardiac exam shows regular rate and rhythm. Lungs are clear to auscultation. Abdomen is slightly distended, and bowel sounds are somewhat high-pitched. There is no tenderness. Extremities show no edema. Assessment and plan: 1. Cardiac. Patient had chest pain and new onset A. fib. He did bump his troponin slightly, but does not appear to have had a significant cardiac event. He has converted back to sinus rhythm. Continue current medications, for history of coronary disease, peripheral vascular disease, aortic aneurysm, hypertension. 2. Hypertension. Blood pressure is controlled. 3. Type 2 diabetes. Glucoses have been reasonably well-controlled with sliding scale insulin and metformin. Is not requiring glimepiride at this time , so this was discontinued. Accu-Cheks will need continued monitoring. His oral calorie intake will likely improve over the next few days. 4. History of DVT and PE. Continue Coumadin and Coumadin monitoring. Discharge diagnosis: Small bowel obstruction, status post lysis of adhesions. Atrial fibrillati - Time Spent with Patient Total time spent providing and/or coordinating discharge services: Less than 30 minutes Medical - DS: Exam - Constitutional Vitals: Vital Signs Temp Pulse Resp BP Pulse Ox 08/26/17 12:00 98.5 F 64 16 142/78 92 08/26/17 08:44 93 08/26/17 08:00 97.6 F 16 166/82 94 08/26/17 04:00 98.1 F 69 18 144/84 95 08/26/17 00:00 98.5 F 74 20 126/58 94 Intake and Output 08/26/17 08/26/17 08/26/17 05:59 13:59 21:59 Intake Total 100 / 100 280 / 280 Output Total 450 / 450 221 / 221 Balance -350 / -350 59 / 59 Intake: Oral 100 / 100 280 / 280 Output: Void Amount 450 / 450 220 / 220 # of times incontinent of urine Other: Meal Breakfast Percent of Meal Consumed 75% Feeding Ability Independent Medical - DS: Data Labs on day of discharge: Labs from last 24 hours 08/26/17 08/26/17 08/26/17 11:25 11:25 04:20 WBC 9.8 RBC 4.46 L Hgb 11.9 L Hct 35.6 L MCV 79.9 L MCH 26.8 MCHC 33.5 RDW 16.0 H Plt Count 285 MPV 8.4 Gran % 76.6 Lymph % (Auto) 13.3 L Runnels % (Auto) 7.4 Eos % (Auto) 2.4 Baso % (Auto) 0.3 Gran # 7.5 Lymph # (Auto) 1.3 L Runnels # (Auto) 0.7 Eos # (Auto) 0.2 Baso # (Auto) 0 PT 17.7 H INR 1.4 H Sodium 134 Potassium 4.3 Chloride 95 L Carbon Dioxide 27 Anion Gap 12.0 BUN 13 Creatinine 1.0 GFR Calculation 70 Glucose 285 H Calcium 8.9 Total Bilirubin 0.3 AST 29 ALT 22 Alkaline Phosphatase 74 Total Protein 6.6 Albumin 3.4 Globulin 3.2 Albumin/Globulin Ratio 1.1 Nasal MRSA screen was positive. Blood cultures were negative. X August 26: Abdominal x-ray: Slight improvement in distal small bowel obstruction pattern. Consider water-soluble contrast small bowel follow- through. Next August 24: Chest x-ray:MPRESSION: Increased cardiomegaly with bilateral alveolar opacities. This more likely due to congestive heart failure with pulmonary edema rather than widespread pneumonia. Based upon the prior CT in 2015 the patient does have underlying emphysema. Medical - DS: A/P - Patient/Caregiver Discharge Instructions Activity: as per physical therapy Diet: Consistent Carbohydrate Additional Instructions: Follow-up in the office in 10 days for staple removal. Leave dressing in place until follow-up appointment. May remove outer dressing and replace if needed. Agressive OT/ PT at SNF. Prescriptions: Insulin Lispro [Humalog] See Protocol SQ ACHS #1 unit - Follow up Plan Follow up with: Ronan Ying MD [Physician] - 09/04/17 1:15 pm (Please check in at 1:00pm for paperwork.) Disposition: Xfer SNF Prognosis: Good Rehab Potential: Good I certify that the patient requires SNF services: Yes Overall status at discharge: patient is progressing back to baseline Medical - DS: Qual - VTE Deep Vein Thrombosis/Pulmonary Embolism Present on Admission: No
== END 2017-08-26 14:20 | DRG 337 ==
LOC: ED 09:01 → MEDSUR 14:20 → ICU 16:20 → MEDSUR 08-22 09:58
PROVIDERS: ADMIT Family Medicine Adult Medicine; ATTEND Internal Medicine

== ENCOUNTER 2019-02-12 11:25 | Inpatient (IN) ==
[2019-02-12] MEDS ORDERED: IOPAMIDOL 100 ML BOTTLE IV ONE (11:26)
[2019-02-12] MEDS ORDERED: IPRATROPIUM/ALBUTEROL 3 ML AMPUL.NEB NEB ONE (11:32)
[2019-02-12] MEDS ORDERED: 0.9 % SODIUM CHLORIDE 500 ML IV ONE (12:01)
[2019-02-12 12:03] LABS: Basophils # (Auto) 0 K/mcL (0.0-0.3); Basophils % (Auto) 0.1 % (0.0-2.0); Eosinophils # (Auto) 0.5 K/mcL (0.0-0.7); Eosinophils % (Auto) 3.1 % (0.0-7.0); Granulocytes % (Auto) 86.5 % (38.0-78.0); Lymphocytes # (Auto) 0.7 K/mcL (1.5-4.8); Mean Cell Volume 76.1 fL (80.0-100.0); Mean Corpuscular HGB Conc 32.1 g/dL (31.0-36.0); Monocytes # (Auto) 1.1 K/mcL (0.1-0.9); Monocytes % (Auto) 6.3 % (1.0-12.0); Platelet Count 302 K/mcL (140-440); RBC 4.58 M/mcL (4.50-5.90); Red Cell Distribution Width 17.3 % (11.5-14.5)
[2019-02-12] MEDS ORDERED: PIPERACILLIN SODIUM/TAZOBACTAM 3.375 GM in DEXTROSE 5% IN WATER 50 ML IV ONE (12:11)
[2019-02-12 12:21] LABS: ALT/SGPT 9 U/l (0-40); Albumin 3.8 gm/dL (3.2-5.2); Albumin/Globulin Ratio 1.1 (1.0-2.3); Alkaline Phosphatase 94 U/L (39-117); Blood Urea Nitrogen 28 mg/dl (8-23)
[2019-02-12 12:24] LABS: Lipase 14 U/L (7-60)
--- NOTE | 2019-02-12 12:33 | XRay Report ---
CLINICAL INFORMATION: dyspnea COMPARISON: 07/23/2018 FINDINGS: The heart is moderately enlarged - slightly increased. Mediastinum is unremarkable. The pulmonary vessels are mildly distended. There is moderate interstitial edema throughout both lungs. Mild bibasilar airspace disease may represent aspiration or pneumonia. No definite effusion IMPRESSION: Moderate CHF Mild bibasilar airspace disease possibly pneumonia or aspiration Interpreted and Authenticated by: Ky Ray 02/12/19
--- NOTE | 2019-02-12 13:15 | Emergency Department Note ---
SOB HPI - General Chief Complaint: Shortness of Breath/Dyspnea Stated Complaint: shortness of breath Time Seen by Provider: 02/12/19 11:48 Source: patient Mode of arrival: wheelchair Limitations: no limitations - History of Present Illness 83-year-old male complaining of fever since last night but 101.8. Having dyspnea on exertion as well as shortness of breath now requiring oxygen 2 L by nasal cannula. He is not on home oxygen. Also notes some nausea initially but not now. He is not having chest pain but does note some swelling in his feet He has been on Macrobid for urinary tract infection for the last 8 days as prescribed by Dr. Peterson. Prior to that he was on Cipro and Keflex for recurrent UTI. 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 - Related Data Home Medications Medication Instructions Recorded Confirmed aspirin 81 mg chewable tablet 81 mg PO HS 09/19/15 02/12/19 cyanocobalamin (vit B-12) 2,500 3,000 mcg SUBLINGUAL QDAY 09/19/15 02/12/19 mcg sublingual tablet levothyroxine 50 mcg tablet 75 mcg PO QDAY 09/19/15 02/12/19 multivitamin tablet 1 tab PO QDAY 09/19/15 02/12/19 omega-3 fatty acids 1,000 mg 1,200 mg PO QDAY 09/19/15 02/12/19 capsule omeprazole 20 mg tablet,delayed 20 mg PO QDAY 09/19/15 02/12/19 release warfarin 5 mg tablet 4 mg PO QDAY 06/12/16 02/12/19 Cholecalciferol (Vitamin D3) 1,000 unit PO DAILY 08/19/17 02/12/19 [Vitamin D3] Magnesium Oxide [Magnesium] 400 mg PO DAILY 08/19/17 02/12/19 cilostazol 50 mg tablet 50 mg PO BID tab 12/30/18 02/12/19 Glimepiride [Amaryl] 4 mg PO HS 01/08/19 02/12/19 Metoprolol Succinate [Toprol Xl] 50 mg PO DAILY 01/08/19 02/12/19 Nitroglycerin [Nitrostat] 0.4 mg SL PRN PRN 01/08/19 02/12/19 Imipramine [Tofranil] 25 mg PO HS 02/12/19 02/12/19 Previous Rx's Medication Instructions Recorded nitrofurantoin 100 mg PO BID #20 cap 02/04/19 monohydrate/macrocrystals 100 mg capsule Allergies Allergy/AdvReac Type Severity Reaction Status Date / Time Nerulfx-Eas-Esp Reductase Allergy Unknown Unknown Verified 02/12/19 11:31 Inhibitor cephalexin AdvReac Mild Nausea Verified 02/12/19 14:57 Review of Systems All systems ED: reviewed and negative except as stated. Past Medical History - Past Medical History Attestation: Yes: The following information was validated with the patient. [facility] Narrative: Family History (Last Reviewed 02/04/19 @ 09:31 by Magi Sears RN) brother Malignant neoplasm of lung father Malignant neoplasm of lung Medical History (Last Reviewed 02/04/19 @ 09:31 by Magi Sears, HETAL) Contusion of right chest wall (Acute) Supraventricular tachycardia (Chronic) Spinal stenosis, cervical region (Chronic) Pulmonary embolism (Chronic) Prostate cancer (Chronic 12/06/13) Peripheral neuropathy (Chronic) Incomplete bladder emptying (Chronic 12/06/13) Hyperthyroidism (Chronic) Hyperlipemia (Chronic) Hip pain (Chronic) Closed hip fracture (Chronic) Groin pain (Chronic) DM type 2 (diabetes mellitus, type 2) (Chronic) Deep vein thrombosis (Chronic) Anticoagulant long-term use (Chronic) Cough (Chronic) CAD (coronary artery disease) (Chronic) Barretts esophagus (Chronic) Arrhythmia (Chronic) 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) Past Surgical History (Last Reviewed 02/04/19 @ 09:31 by Magi Sears RN) Hx of laminectomy (Acute) History of right hip replacement (Acute) History of prostate surgery (Acute 01/03/15) Hx of CABG (Acute) Hx of biopsy (Acute) History of cystoscopy (Acute) S/P TURP (Chronic 12/21/15) Medical history: Reports: cancer (Prostate and colon), CAD (coronary artery disease), CHF, DM, pulmonary embolus, other (SBO, prostate cancer, paroxysmal A- fib, PE, DVT) Psychiatric history: Reports: no psych history Surgical history ED: Reports: angioplasty/stent, coronary bypass (CABG), vascular surgery (AAA stent) - Social History smoking status: Former smoker Alcohol use: Reports: None Physical Exam No acute distress resting comfortably wearing nasal cannula oxygen. Normocephalic atraumatic. Conjunctive are clear sclerae nonicteric. No nasal discharge. Oropharynx is pink moist. Posterior pharynx clear. Neck is supple without lymphadenopathy or thyromegaly. Heart is regular rate and rhythm no murmur appreciated. Lungs clear to auscultation bilaterally without rales but some end expiratory wheeze. He does seem to have improved with less coughing after single breathing treatment with DuoNeb. Abdomen soft nontender nondistended. Mild pedal edema probably +1 bilaterally with a few tiny superficial sores-1 visible on the right anterior padgett approximately dime sized with a small area of surrounding erythema. +2 radial pulse. Alert oriented Limitations: no limitations Course Vital Signs Temperature 98.8 F 02/12/19 11:25 Pulse Rate 85 02/12/19 11:25 Respiratory Rate 24 H 02/12/19 11:25 Blood Pressure 135/67 02/12/19 11:25 Pulse Oximetry (%) 87 L 02/12/19 11:25 Temperature 98.8 F 02/12/19 14:35 Pulse Rate 80 02/12/19 14:35 Respiratory Rate 21 02/12/19 14:35 Blood Pressure 137/61 02/12/19 14:35 Pulse Oximetry (%) 96 02/12/19 14:35 Shortness of Breath/Dyspnea - Lab Data Lab results reviewed: Yes I reviewed the patient's lab results. Result diagrams: 02/12/19 11:40 02/12/19 11:40 Lab Results 02/12/19 02/12/19 02/12/19 Range/Units 11:40 11:40 11:40 WBC 17.3 H (4.5-11.0) K/mcL RBC 4.58 (4.50-5.90) M/mcL Hgb 11.2 L (13.5-16.5) g/dL Hct 34.8 L (41.0-55.0) % POC Hct MCV 76.1 L (80.0-100.0) fL MCH 24.4 L (26.0-34.0) pg MCHC 32.1 (31.0-36.0) g/dL RDW 17.3 H (11.5-14.5) % Plt Count 302 (140-440) K/mcL MPV 7.7 (7.4-10.4) fL Gran % 86.5 H (38.0-78.0) % Lymph % (Auto) 4.0 L (15.5-49.0) % Kaufman % (Auto) 6.3 (1.0-12.0) % Eos % (Auto) 3.1 (0.0-7.0) % Baso % (Auto) 0.1 (0.0-2.0) % Gran # 14.9 H (1.8-8.0) K/mcL Lymph # (Auto) 0.7 L (1.5-4.8) K/mcL Kaufman # (Auto) 1.1 H (0.1-0.9) K/mcL Eos # (Auto) 0.5 (0.0-0.7) K/mcL Baso # (Auto) 0 (0.0-0.3) K/mcL PT (11.9-14.5) sec INR (0.9-1.1) VBG Lactic Acid (0.5-2.0) mmol/L POC Sodium Sodium 135 (133-145) mmol/L POC Potassium Potassium 4.7 (3.3-5.1) mmol/L POC Chloride Chloride 101 (96-108) mmol/L Carbon Dioxide 22 (22-30) mmol/L POC Total CO2 Anion Gap 12.0 (8-16) POC BUN BUN 28 H (8-23) mg/dl Creatinine 1.4 H (0.7-1.2) mg/dl POC Creatinine GFR Calculation 46 Glucose 206 H (70-105) mg/dL POC Glucose Calcium 8.7 (8.6-10.4) mg/dl POC WB Ioniz Calcium Magnesium (1.6-2.5) mg/dL Total Bilirubin 0.7 (0.0-1.0) mg/dL AST 12 (0-37) U/l ALT 9 (0-40) U/l Alkaline Phosphatase 94 (39-117) U/L Troponin T (0-0.03) ng/ml NT-Pro-B Natriuret Pep (0-450) pg/ml Total Protein 7.2 (5.9-8.4) gm/dL Albumin 3.8 (3.2-5.2) gm/dL Globulin 3.4 (2.2-3.7) gm/dL Albumin/Globulin Ratio 1.1 (1.0-2.3) Lipase (7-60) U/L Procalcitonin 0.30 (<0.10) ng/mL 02/12/19 02/12/19 02/12/19 Range/Units 11:40 11:40 11:40 WBC (4.5-11.0) K/mcL RBC (4.50-5.90) M/mcL Hgb (13.5-16.5) g/dL Hct (41.0-55.0) % POC Hct TNP MCV (80.0-100.0) fL MCH (26.0-34.0) pg MCHC (31.0-36.0) g/dL RDW (11.5-14.5) % Plt Count (140-440) K/mcL MPV (7.4-10.4) fL Gran % (38.0-78.0) % Lymph % (Auto) (15.5-49.0) % Kaufman % (Auto) (1.0-12.0) % Eos % (Auto) (0.0-7.0) % Baso % (Auto) (0.0-2.0) % Gran # (1.8-8.0) K/mcL Lymph # (Auto) (1.5-4.8) K/mcL Kaufman # (Auto) (0.1-0.9) K/mcL Eos # (Auto) (0.0-0.7) K/mcL Baso # (Auto) (0.0-0.3) K/mcL PT 19.4 H (11.9-14.5) sec INR 1.6 H (0.9-1.1) VBG Lactic Acid (0.5-2.0) mmol/L POC Sodium TNP Sodium (133-145) mmol/L POC Potassium TNP Potassium (3.3-5.1) mmol/L POC Chloride TNP Chloride (96-108) mmol/L Carbon Dioxide (22-30) mmol/L POC Total CO2 TNP Anion Gap (8-16) POC BUN TNP BUN (8-23) mg/dl Creatinine (0.7-1.2) mg/dl POC Creatinine TNP GFR Calculation Glucose (70-105) mg/dL POC Glucose TNP Calcium (8.6-10.4) mg/dl POC WB Ioniz Calcium TNP Magnesium 1.7 (1.6-2.5) mg/dL Total Bilirubin (0.0-1.0) mg/dL AST (0-37) U/l ALT (0-40) U/l Alkaline Phosphatase (39-117) U/L Troponin T 0.08 H* (0-0.03) ng/ml NT-Pro-B Natriuret Pep 2819.0 H (0-450) pg/ml Total Protein (5.9-8.4) gm/dL Albumin (3.2-5.2) gm/dL Globulin (2.2-3.7) gm/dL Albumin/Globulin Ratio (1.0-2.3) Lipase 14 (7-60) U/L Procalcitonin (<0.10) ng/mL 02/12/19 Range/Units 12:27 WBC (4.5-11.0) K/mcL RBC (4.50-5.90) M/mcL Hgb (13.5-16.5) g/dL Hct (41.0-55.0) % POC Hct MCV (80.0-100.0) fL MCH (26.0-34.0) pg MCHC (31.0-36.0) g/dL RDW (11.5-14.5) % Plt Count (140-440) K/mcL MPV (7.4-10.4) fL Gran % (38.0-78.0) % Lymph % (Auto) (15.5-49.0) % Kaufman % (Auto) (1.0-12.0) % Eos % (Auto) (0.0-7.0) % Baso % (Auto) (0.0-2.0) % Gran # (1.8-8.0) K/mcL Lymph # (Auto) (1.5-4.8) K/mcL Kaufman # (Auto) (0.1-0.9) K/mcL Eos # (Auto) (0.0-0.7) K/mcL Baso # (Auto) (0.0-0.3) K/mcL PT (11.9-14.5) sec INR (0.9-1.1) VBG Lactic Acid 1.5 (0.5-2.0) mmol/L POC Sodium Sodium (133-145) mmol/L POC Potassium Potassium (3.3-5.1) mmol/L POC Chloride Chloride (96-108) mmol/L Carbon Dioxide (22-30) mmol/L POC Total CO2 Anion Gap (8-16) POC BUN BUN (8-23) mg/dl Creatinine (0.7-1.2) mg/dl POC Creatinine GFR Calculation Glucose (70-105) mg/dL POC Glucose Calcium (8.6-10.4) mg/dl POC WB Ioniz Calcium Magnesium (1.6-2.5) mg/dL Total Bilirubin (0.0-1.0) mg/dL AST (0-37) U/l ALT (0-40) U/l Alkaline Phosphatase (39-117) U/L Troponin T (0-0.03) ng/ml NT-Pro-B Natriuret Pep (0-450) pg/ml Total Protein (5.9-8.4) gm/dL Albumin (3.2-5.2) gm/dL Globulin (2.2-3.7) gm/dL Albumin/Globulin Ratio (1.0-2.3) Lipase (7-60) U/L Procalcitonin (<0.10) ng/mL - Radiology Data Radiology results reviewed: Yes I reviewed the patient's radiology results. Chest x-ray shows stigmata of COPD as well as increased vascular markings consistent with CHF. Cardiomegaly noted. CT scan is ordered of the chest as well as he has history of pulmonary embolism and to sort out whether or not there is a pneumonia. However results were not available at the time of admission - EKG Data EKG attestation: Yes I reviewed and interpreted this EKG. EKG results narrative: EKG shows a rate of 85 with 1 PAC PVC right bundle branch block is noted as well as left anterior fascicular block. There is no change when compared to 01/14/2019 Disposition Pt seen by [employer]SWERING SERVICE/PA only: No Clinical Impression: Acute exacerbation of chronic obstructive airways disease Community acquired pneumonia Qualifiers: Laterality: unspecified laterality Qualified Code(s): J18.9 - Pneumonia, unspec ified organism Congestive heart failure Qualifiers: Heart failure type: unspecified Heart failure chronicity: acute on chronic Qualified Code(s): I50.9 - Heart failure, unspecified Summary: After initial interview and exam work-up was ordered laboratory and x-ray chest. Small amount of IV fluids 500 mL. EKG was unrevealing and he did not have significant chest pain. However he was requiring oxygen so concern for possible pneumonia versus CHF versus recurrent PE. However he is currently on warfarin already x10 years or so. Chest x-ray showed concern for pneumonia and he had leukocytosis so blood cultures were done along with a lactic acid. Start Zosyn. ABG showed pH 7.49 PCO2 29 and PO2 62 so he is going to require a little bit more oxygen. Mildly elevated troponin but his troponins are chronically elevated. I reviewed his cardiac history and I do not see a previous echo on his chart. I discussed his case with Dr. Santiago, our hospitalist, who agreed to accept the patient for further care and evaluation in the hospital Disposition: Xfer As Inpt ([facility]) Condition: Fair
--- NOTE | 2019-02-12 13:59 | Internal Med History&Physical ---
Medical - H&P: HPI Patient information: Note initiated : 02/12/19 at 1:55 pm Service Date, if different from initiated Date: [] Patient: Melvin Sousa a 83 y/o M admitted on for shortness of breath. Chief Complaint: [] History of present illness: Mr. Sousa is a 83 year old M with multiple medical issues presents to the emergency room today with his for evaluation of shortness of breath weakness and fever going on for the last 1-2 days. The patient notes most of his symptoms started yesterday day before yesterday he was feeling more or less fine. He has been in the morning he became short of breath he was short of breath with minimal activity, he usually uses a walker for ambulation. He also had a fever of 101.8. The patient this morning again woke up from sleep being short of breath and felt that he was not getting enough air. While trying to move around and later with his walker he felt that his condition was getting worse he therefore presented to the emergency room for further evaluation. He admits to having some cough with clear sputum, but otherwise no other complaints. He denies any chest pain, admits to having some nausea but no vomiting. 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 The patient denies any changes in hearing, abdominal pain, he does have a recurrent urinary tract infections and follows with Dr. Peterson for same, he also admits to having been recently diagnosed with rectal cancer which is followed by Dr. Carl He has chronic lower extremity edema, and admits to having poor circulation in his legs. On presentation to the emergency room patient is afebrile temperature 98.8, heart rate 88 blood pressure 135 x 67 respirations 24 saturating 93% on 2 L of oxygen. Patient's labs show leukocytosis WBC count of 17.3, hemoglobin 11.2, platelets 302. INR 1.6, lactic acid 1.5, troponin 0 0.08, is chronically elevated presently slightly worse than before. BNP 2819, chemistry shows creatinine of 1.4 which is chronically elevated potassium 4.7 bicarbonate 22 glucose 206, pro calcitonin 0.30 Flu test done in the emergency room was negative, chest x-ray showed pneumonia aspiration, moderate CHF Chest CT was done official report pending verbal report does not show any new PE but does show CHF EKG shows sinus rhythm left axis deviation LAFB, right bundle branch block, no significant change from the previous EKG done in December of this year The patient is being admitted to the hospital for further management All systems: reviewed and no additional remarkable complaints except as stated (as per HPI rest negative.) Medical - H&P: PMH Medical history: Medical History (Last Reviewed 02/04/19 @ 09:31 by Magi Sears RN) Contusion of right chest wall (Acute) Supraventricular tachycardia (Chronic) Spinal stenosis, cervical region (Chronic) Pulmonary embolism (Chronic) Prostate cancer (Chronic 12/06/13) Peripheral neuropathy (Chronic) Incomplete bladder emptying (Chronic 12/06/13) Hyperthyroidism (Chronic) Hyperlipemia (Chronic) Hip pain (Chronic) Closed hip fracture (Chronic) Groin pain (Chronic) DM type 2 (diabetes mellitus, type 2) (Chronic) Deep vein thrombosis (Chronic) Anticoagulant long-term use (Chronic) Cough (Chronic) CAD (coronary artery disease) (Chronic) Barretts esophagus (Chronic) Arrhythmia (Chronic) 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) Peripheral Vascular Disease Surgical history: Past Surgical History (Last Reviewed 02/04/19 @ 09:31 by Magi Sears RN) Hx of laminectomy (Acute) History of right hip replacement (Acute) History of prostate surgery (Acute 01/03/15) Hx of CABG (Acute) Hx of biopsy (Acute) History of cystoscopy (Acute) S/P TURP (Chronic 12/21/15) Pertinent family history: Family History (Last Reviewed 02/04/19 @ 09:31 by Magi Sears RN) brother Malignant neoplasm of lung father Malignant neoplasm of lung Medical - H&P: Meds Home Medications Medication Instructions Recorded Confirmed Type aspirin 81 mg chewable tablet 81 mg PO HS 09/19/15 02/12/19 History cyanocobalamin (vit B-12) 2,500 3,000 mcg SUBLINGUAL QDAY 09/19/15 02/12/19 History mcg sublingual tablet levothyroxine 50 mcg tablet 75 mcg PO QDAY 09/19/15 02/12/19 History multivitamin tablet 1 tab PO QDAY 09/19/15 02/12/19 History omega-3 fatty acids 1,000 mg 1,200 mg PO QDAY 09/19/15 02/12/19 History capsule omeprazole 20 mg tablet,delayed 20 mg PO QDAY 09/19/15 02/12/19 History release warfarin 5 mg tablet 4 mg PO QDAY 06/12/16 02/12/19 History Cholecalciferol (Vitamin D3) 1,000 unit PO DAILY 08/19/17 02/12/19 History [Vitamin D3] Magnesium Oxide [Magnesium] 400 mg PO DAILY 08/19/17 02/12/19 History cilostazol 50 mg tablet 50 mg PO BID tab 12/30/18 02/12/19 History Glimepiride [Amaryl] 4 mg PO HS 01/08/19 02/12/19 History Metoprolol Succinate [Toprol Xl] 50 mg PO DAILY 01/08/19 02/12/19 History Nitroglycerin [Nitrostat] 0.4 mg SL PRN PRN 01/08/19 02/12/19 History nitrofurantoin 100 mg PO BID #20 cap 02/04/19 02/12/19 Rx monohydrate/macrocrystals 100 mg capsule Imipramine [Tofranil] 25 mg PO HS 02/12/19 02/12/19 History Allergies Allergy/AdvReac Type Severity Reaction Status Date / Time Bnsbwee-Hcj-Uyd Reductase Allergy Unknown Unknown Verified 02/12/19 11:31 Inhibitor cephalexin AdvReac Unknown Nausea Verified 02/12/19 11:31 Medical - H&P: Exam - Constitutional Vitals: Temp Pulse Resp BP Pulse Ox 98.8 F 83 20 132/62 94 02/12/19 11:25 02/12/19 13:07 02/12/19 13:04 02/12/19 13:04 02/12/19 13:07 Exam: GENERAL: The patient is a well-developed, well-nourished in no apparent distress. Is alert and oriented x3. VITAL SIGNS: Reviewed and as noted elsewhere. HEENT: Head is normocephalic and atraumatic. Extraocular muscles are intact. Pupils are equal, round, and reactive to light. Nares appeared normal. Mouth appears any without lesions. Mucous membranes are moist. NECK: Normal to inspection, Supple, No lymphadenopathy or thyromegaly. LUNGS: Air entry equal on both sides, no wheezing, mild bibasilar crackles present. No accessory muscles of respiration HEART: Regular rate and rhythm normal, S1 and S2 heard, no Gallop, S3 or Rub Noted, No Gross murmur heard. ABDOMEN: Soft, nontender, and nondistended. Positive bowel sounds. No hepatosplenomegaly was noted. Hypogastric scar noted. EXTREMITIES: No cyanosis, clubbing, rash, , edema ++ bilaterally NEUROLOGIC: Cranial nerves II through XII are grossly intact. Motor and Sensory System Grossly Intact PSYCHIATRIC: Normal affect, Normal Mood. Appropriate Behavior. SKIN: No ulceration or wounds noted, No jaundice, No rash noted. Medical - H&P: Reslt - Labs CBC & Chem 7: 02/12/19 11:40 02/12/19 11:40 Labs: Short CBC 02/12/19 Range/Units 11:40 WBC 17.3 H (4.5-11.0) K/mcL Hgb 11.2 L (13.5-16.5) g/dL Hct 34.8 L (41.0-55.0) % Plt Count 302 (140-440) K/mcL BMP 02/12/19 11:40 Sodium 135 Potassium 4.7 Chloride 101 Carbon Dioxide 22 BUN 28 H Creatinine 1.4 H Glucose 206 H Calcium 8.7 Cardiac Enzymes 02/12/19 Range/Units 11:40 Troponin T 0.08 H* (0-0.03) ng/ml Liver Function 02/12/19 Range/Units 11:40 Total Bilirubin 0.7 (0.0-1.0) mg/dL AST 12 (0-37) U/l ALT 9 (0-40) U/l Alkaline Phosphatase 94 (39-117) U/L Albumin 3.8 (3.2-5.2) gm/dL Medical - H&P: A/P - Narrative A/P Narrative: A/P Health Care associated pneumonia/ Aspirational Pneumonia -Patient has h/o recent antibiotic, (cipro ) use, also Esophageal dilation issues, -treat with Zosyn for now, blood cultures sent, add sputum cx, check resp viral panel Acute Hypoxic Respiratory Failure -on 2L oxygen, incentive spirometery, wean off as tolerated Type 2 Demand NSTEMI/ Ischemia -due to pna, chf, monitor Acute Congestive heart failure -noted on X ray, elevated bnp,BP is stable, IV lasix, Recurrent UTI -presently on macrobid, after a round of cipro and keflex? zosyn should cover any potential organisms, repeat UA h/o Prostate cancer/ Rectal Cancer -Follow up as outpatient Coronary artery disease/ Peripheral vascular disease -no chest pain, no new EKG changes -will continue home dose of asa/beta nancy/ cilastazol -pt notes he is unable to tolerate statin Diabetes/Hypertension -resume home meds for HTN -SSI INsulin for glucose control. h/o Recurrent PE -s/p IVC filter placement -on coumadin but INR is subtherapeutic -start on therapeutic dose of lovenox, till INR is therapeutic then swtic to coumadin DVT -lovenox, coumadin per pharmacy Diet Carb consistent/ cardiac Full code. Social History - Tobacco smoking status: Former smoker - Alcohol alcohol intake frequency: holiday/special occasion only - Substance use substance use type: does not use
--- NOTE | 2019-02-12 14:29 | Cat Scan Report ---
CLINICAL INFORMATION: Shortness of breath COMPARISON: Chest CT 07/22/2016 TECHNIQUE: 80 cc of Isovue-300 were injected intravenously, and 25 seconds later, 0.625 mm helical slices were obtained from the lung apices through the bases. Following reconstruction, 2.5 mm sagittal, coronal and axial reformations were processed and reviewed at lung, mediastinal and bone windows. 7 mm axial MIPS were also obtained to optimize pulmonary nodule detection. The exam was performed using radiation dose optimization techniques including, but not limited to, automated exposure control, adjustment of the mA and/or kV according to patient size and use of iterative reconstruction technique. FINDINGS: The pulmonary arteries are mildly congested and there is interstitial edema predominantly in the interlobular septi within the peripheral upper lobes and moderate patchy alveolar edema in the posterior lower lobes. Moderate centrilobular emphysema changes are stable from previous CT Scattered small well circumscribed nodules are new from the previous: 5 mm - image 43 right upper lobe, 5 mm image 55 - left upper lobe and 4 mm mm along the major fissure in the right midlung image 65. Small bilateral pleural effusions noted. No evidence of pulmonary emboli. The thoracic aorta is normal in contour and caliber with scattered atherosclerotic plaque. There are few borderline enlarged lymph nodes in the lower mediastinum and hilum which have increased in size. The range up to 11 mm in the precarinal region. They are almost certainly benign reactive lymph nodes. The heart is moderately enlarged and there is heavy calcific plaque within the LAD and circumflex coronary arteries with a small amount in the right coronary artery. Small amount of calcification also seen within both aortic and mitral valves. Esophagus is unremarkable. Bone windows show moderate degenerative changes throughout the thoracic spine - as previously seen. Sternotomy changes noted. Images of the upper abdomen show 6 cm simple cyst upper pole the left kidney three Demeter simple cyst superior pole left kidney. No other superior abdominal abnormality IMPRESSION: 1. Moderate CHF 2. Small bilateral pleural effusions 3. Moderate centrilobular emphysema. There are 4-5 small nodule and benign size range - less than 5 mm. These are new since the 2016 study. 4. Mildly enlarged mediastinal lymph nodes increasing 2016 CT. They almost certainly represent benign reactive adenopathy. Interpreted and Authenticated by: Ky Ray 02/12/19
[2019-02-12] MEDS ORDERED: ACETAMINOPHEN 325 MG TABLET PO PRN (14:55)
[2019-02-12] MEDS ORDERED: ONDANSETRON 4 MG/2 ML VIAL IV PRN (14:55)
[2019-02-12] MEDS ORDERED: NALOXONE HCL 0.4 MG/ML VIAL IV PRN (14:55)
[2019-02-12] MEDS ORDERED: DEXTROSE 50% 50 ML VIAL IV PRN (14:55)
[2019-02-12] MEDS ORDERED: DEXTROSE 31 GM ORAL.SUSP PO PRN (14:55)
[2019-02-12] MEDS ORDERED: NITROGLYCERIN 0.4 MG TAB.SUBL SL PRN (14:55)
[2019-02-12] MEDS ORDERED: FUROSEMIDE 40 MG/4 ML VIAL IV SCH (14:55)
[2019-02-12] MEDS: ENOXAPARIN 100 MG/ML SYRINGE SQ SCH (15:25)
[2019-02-12] MEDS: 0.9 % SODIUM CHLORIDE 10 ML SYRINGE IV SCH ×2 (15:27→20:12)
[2019-02-12] MEDS ORDERED: WARFARIN 5 MG TABLET PO ONE (16:00)
[2019-02-12 16:38] LABS: Appearance,Urine CLEAR; Bacteria,Urine 0 /hpf (0); Bilirubin,Urine NEG (NEG); Color,Urine YELLOW; Glucose,Urine (UA) NEGATIVE (NEG); Leukocyte Esterase,Urine NEG /uL (NEG); Mucus,Urine FEW /hpf (0); Protein,Urine NEG (NEG); Specific Gravity,Urine 1.023 (1.000-1.035); Urine Blood 0.03 mg/dL (<0.03); Urine RBC 6 /hpf (0-1); Urine Squamous Epithelial Cell 0 /hpf (0-4); Urine WBC 2 /hpf (0-4); Urobilinogen,Urine NEG (NEG)
[2019-02-12] MEDS: CILOSTAZOL 100 MG TABLET PO SCH (17:25)
[2019-02-12] MEDS: INSULIN LISPRO 1 UNIT/0.01 ML UNIT SQ SCH ×2 (17:25→20:16)
[2019-02-12] MEDS: PIPERACILLIN SODIUM/TAZOBACTAM 3.375 GM in DEXTROSE 5% IN WATER 50 ML IV SCH (17:26)
[2019-02-12] MEDS: IPRATROPIUM/ALBUTEROL 3 ML AMPUL.NEB NEB SCH (18:18)
[2019-02-12] MEDS: ASPIRIN 81 MG TAB.CHEW PO SCH (20:12)
[2019-02-12] MEDS: IMIPRAMINE 25 MG TABLET PO SCH (20:12)
[2019-02-13] MEDS: PIPERACILLIN SODIUM/TAZOBACTAM 3.375 GM in DEXTROSE 5% IN WATER 50 ML IV SCH ×5 (00:09→23:25)
[2019-02-13] MEDS: IPRATROPIUM/ALBUTEROL 3 ML AMPUL.NEB NEB SCH ×4 (00:09→19:19)
[2019-02-13] MEDS: ENOXAPARIN 100 MG/ML SYRINGE SQ SCH ×3 (00:09→21:15)
[2019-02-13 05:07] LABS: ALT/SGPT 6 U/l (0-40); Albumin 3.2 gm/dL (3.2-5.2); Alkaline Phosphatase 77 U/L (39-117); Bilirubin,Direct < 0.2 mg/dL (0.0-0.3); Blood Urea Nitrogen 27 mg/dl (8-23); Gamma Glutamyl Transpeptidase 13 U/L (8-61); Uric Acid 5.7 mg/dL (2.5-8.0)
[2019-02-13 05:09] LABS: Basophils # (Auto) 0 K/mcL (0.0-0.3); Basophils % (Auto) 0.1 % (0.0-2.0); Eosinophils # (Auto) 0.4 K/mcL (0.0-0.7); Eosinophils % (Auto) 3.6 % (0.0-7.0); Granulocytes % (Auto) 82.6 % (38.0-78.0); Lymphocytes # (Auto) 0.8 K/mcL (1.5-4.8); Lymphocytes % (Auto) 6.5 % (15.5-49.0); Mean Cell Volume 75.4 fL (80.0-100.0); Mean Corpuscular HGB Conc 32.6 g/dL (31.0-36.0); Monocytes # (Auto) 0.9 K/mcL (0.1-0.9); Monocytes % (Auto) 7.2 % (1.0-12.0); Platelet Count 256 K/mcL (140-440); Red Cell Distribution Width 17.5 % (11.5-14.5)
[2019-02-13] MEDS: 0.9 % SODIUM CHLORIDE 10 ML SYRINGE IV SCH ×3 (05:28→21:14)
[2019-02-13] MEDS: CILOSTAZOL 100 MG TABLET PO SCH ×2 (07:08→17:21)
[2019-02-13] MEDS: OMEPRAZOLE 20 MG CAPSULE PO SCH (07:08)
[2019-02-13] MEDS: LEVOTHYROXINE 75 MCG TABLET PO SCH (07:08)
[2019-02-13] MEDS: INSULIN LISPRO 1 UNIT/0.01 ML UNIT SQ SCH ×4 (08:03→21:13)
[2019-02-13] MEDS: METOPROLOL SUCCINATE 50 MG TAB.XL.24H PO SCH (10:07)
[2019-02-13] MEDS: MAGNESIUM OXIDE 400 MG TABLET PO SCH (10:07)
[2019-02-13] MEDS: CYANOCOBALAMIN (VITAMIN B-12) 500 MCG TABLET PO SCH (10:07)
[2019-02-13] MEDS: MULTIVIT,THER IRON,CA,FA & MIN 1 TABLET PO SCH (10:07)
[2019-02-13] MEDS ORDERED: FUROSEMIDE 40 MG/4 ML VIAL IV ONE (10:11)
[2019-02-13] MEDS: VITAMIN D3 1,000 UNIT TABLET PO SCH (10:16)
[2019-02-13] MEDS: FISH OIL 1,000 MG CAPSULE PO SCH (10:16)
--- NOTE | 2019-02-13 13:38 | Internal Med Progress Note ---
Medical - PN: Subj Patient information: Note initiated : 02/13/19 at 1:35 pm Service Date, if different from initiated Date: [] Patient: Melvin Sousa a 83 y/o M admitted on 02/12/19 for shortness of breath. Chief Complaint: [] Interval history: Mr. Sousa is a 83 year old M with multiple medical issues presents to the emergency room today with his for evaluation of shortness of breath weakness and fever going on for the last 1-2 days. The patient notes most of his symptoms started yesterday day before yesterday he was feeling more or less fine. He has been in the morning he became short of breath he was short of breath with minimal activity, he usually uses a walker for ambulation. He also had a fever of 101.8. The patient this morning again woke up from sleep being short of breath and felt that he was not getting enough air. While trying to move around and later with his walker he felt that his condition was getting worse he therefore presented to the emergency room for further evaluation. He admits to having some cough with clear sputum, but otherwise no other complaints. He denies any chest pain, admits to having some nausea but no vomiting. 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 The patient denies any changes in hearing, abdominal pain, he does have a recurrent urinary tract infections and follows with Dr. Peterson for same, he also admits to having been recently diagnosed with rectal cancer which is followed by Dr. Carl He has chronic lower extremity edema, and admits to having poor circulation in his legs. On presentation to the emergency room patient is afebrile temperature 98.8, heart rate 88 blood pressure 135 x 67 respirations 24 saturating 93% on 2 L of oxygen. Patient's labs show leukocytosis WBC count of 17.3, hemoglobin 11.2, platelets 3 02. INR 1.6, lactic acid 1.5, troponin 0 0.08, is chronically elevated presently slightly worse than before. BNP 2819, chemistry shows creatinine of 1.4 which is chronically elevated potassium 4.7 bicarbonate 22 glucose 206, pro calcitonin 0.30 Flu test done in the emergency room was negative, chest x-ray showed pneumonia aspiration, moderate CHF Chest CT was done official report pending verbal report does not show any new PE but does show CHF EKG shows sinus rhythm left axis deviation LAFB, right bundle branch block, no significant change from the previous EKG done in December of this year The patient is being admitted to the hospital for further management 02/13 Patient seen examined, no acute overnight issues, tolerating po diet well, still on 2 -3 L oxygen, but feels breathign is better neg 850 overnight incrase lasix to 40mg IV BID Pertinent ROS: Denies headache, dizziness Denies chest pain, palpitations improving cough and shortness of breath Denies abdominal pain, nausea or vomiting. - Constitutional Vitals: Vital Signs Temp Pulse Resp BP Pulse Ox 98 F 77 18 121/76 96 02/13/19 11:50 02/13/19 13:01 02/13/19 13:01 02/13/19 11:50 02/13/19 11:50 Period Temp Pulse Resp BP Sys/Viveros Pulse Ox Last 24 Hr 98 F-100.6 F 77-82 18-30 112-144/55-83 90-97 Intake and Output 02/12/19 02/13/19 02/13/19 21:59 05:59 13:59 Intake Total 132 414 8616 Output Total 1250 1000 950 Balance -510 -900 540 Weight 210 lb 201 lb Patient Weight 02/14/19 05:59 Weight 201 lb Intake & Output: Intake & Output 02/12/19 02/13/19 02/13/19 21:59 05:59 13:59 Intake Total 497 505 2443 Output Total 1250 1000 950 Balance -510 -900 540 Weight 210 lb 201 lb Intake: IV 50 50 50 Zosyn 3.375 gm In Dextrose 5% 50 50 50 in Water 50 ml @ 100 mls/hr IV Q6H [facility] Rx#:[id number] Oral 860 74 8320 Output: Urine Catheter Amount 1250 1000 950 Other: Meal Dinner Lunch Percent of Meal Consumed 50% 100% Feeding Ability Independent Urine Appearance Clear Clear Clear Sediment Uretheral ([place]) Clear Clear Urine Color Straw Bright Yellow Bright Yellow Straw Uretheral ([place]) Bright Yellow Bright Yellow Urine Odor Normal Normal Normal Stool Size Large Stool Color Brown Stool Consistency Soft # Bowel Movements 1 Exam: Constitutional; Afebrile, cooperative, alert, not in distress. Respiratory system: Air Entry equal on both sides, mild basilar inspiratory crackles. CVS- Rate rhythm regular, S1,S2 heard, no gallop, no rub. 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 Medical - PN: Obj Da - Labs CBC & Chem 7: 02/13/19 03:00 02/13/19 03:30 Labs: Abnormal Lab Results 02/13/19 02/13/19 02/13/19 03:30 03:30 03:00 WBC 12.3 H RBC 4.00 L Hgb 9.8 L Hct 30.1 L MCV 75.4 L MCH 24.6 L RDW 17.5 H Gran % 82.6 H Lymph % (Auto) 6.5 L Gran # 10.2 H Lymph # (Auto) 0.8 L Starr # (Auto) PT 21.9 H INR 1.9 H BUN 27 H Creatinine 1.3 H Glucose 175 H Calcium 8.3 L Troponin T NT-Pro-B Natriuret Pep Urine Occult Blood Urine RBC 02/12/19 02/12/19 02/12/19 16:04 11:40 11:40 WBC RBC Hgb Hct MCV MCH RDW Gran % Lymph % (Auto) Gran # Lymph # (Auto) Starr # (Auto) PT INR BUN Creatinine Glucose Calcium Troponin T 0.08 H* NT-Pro-B Natriuret Pep 2819.0 H Urine Occult Blood 0.03 A Urine RBC 6 H 02/12/19 02/12/19 02/12/19 11:40 11:40 11:40 WBC 17.3 H RBC Hgb 11.2 L Hct 34.8 L MCV 76.1 L MCH 24.4 L RDW 17.3 H Gran % 86.5 H Lymph % (Auto) 4.0 L Gran # 14.9 H Lymph # (Auto) 0.7 L Starr # (Auto) 1.1 H PT 19.4 H INR 1.6 H BUN 28 H Creatinine 1.4 H Glucose 206 H Calcium Troponin T NT-Pro-B Natriuret Pep Urine Occult Blood Urine RBC Meds: Medications Acetaminophen (Tylenol) 650 mg PO Q6HP PRN PRN Reason: PAIN/FEVER > 101 Albuterol/Ipratropium (Duoneb) 3 ml NEB Q6HRT [facility] Last Admin: 02/13/19 12:48 Dose: 3 ml Documented by: Aspirin (Aspirin) 81 mg PO HS [facility] Last Admin: 02/12/19 20:12 Dose: 81 mg Documented by: Cilostazol (Pletal) 50 mg PO BIDAC [facility] Last Admin: 02/13/19 07:08 Dose: 50 mg Documented by: Cyanocobalamin (Vitamin B-12) 3,000 mcg PO DAILY [facility] Last Admin: 02/13/19 10:07 Dose: 3,000 mcg Documented by: Dextrose (Dextrose 50%) 0 ml IV UD PRN PRN Reason: Hypoglycemia Diagnostic Test (Pha) (Accu-Chek) 1 each FS ACHS [facility] Last Admin: 02/13/19 11:48 Dose: 1 each Documented by: Enoxaparin Sodium (Lovenox) 100 mg SQ Q12H [facility] Last Admin: 02/13/19 10:19 Dose: 100 mg Documented by: Fish Oil (Fish Oil) 1,000 mg PO DAILY [facility] Last Admin: 02/13/19 10:16 Dose: 1,000 mg Documented by: Furosemide (Lasix) 40 mg IV BIDD [facility] Glucose (Insta-Glucose) 15 gm PO PRN PRN PRN Reason: Hypoglycemia Piperacillin Sod/Tazobactam (Sod 3.375 gm/ Dextrose) 50 mls @ 100 mls/hr IV Q6H [facility]; Protocol Last Admin: 02/13/19 12:08 Dose: 100 mls/hr Documented by: Imipramine HCl (Tofranil) 25 mg PO HS [facility] Last Admin: 02/12/19 20:12 Dose: 25 mg Documented by: Insulin Human Lispro (Humalog) 0 unit SQ [facility]; Protocol Last Admin: 02/13/19 11:48 Dose: 3 unit Documented by: Iron Carb/Multivit/[place]/Folic Acid (Multivitamin W/Minerals) 1 tab PO DAILY [facility] Last Admin: 02/13/19 10:07 Dose: 1 tab Documented by: Levothyroxine Sodium (Synthroid) 75 mcg PO QAMAC [facility] Last Admin: 02/13/19 07:08 Dose: 75 mcg Documented by: Magnesium Oxide (Magnesium Oxide) 400 mg PO DAILY [facility] Last Admin: 02/13/19 10:07 Dose: 400 mg Documented by: Metoprolol Succinate (Toprol Xl) 50 mg PO DAILY [facility] Last Admin: 02/13/19 10:07 Dose: 50 mg Documented by: Naloxone HCl (Narcan) 0.1 mg IV Q2MIN PRN PRN Reason: Opiate Reversal Nitroglycerin (Nitrostat) 0.4 mg SL PRN PRN PRN Reason: Angina Omeprazole (Prilosec) 20 mg PO ACB [facility] Last Admin: 02/13/19 07:08 Dose: 20 mg Documented by: Ondansetron HCl (Zofran) 4 mg IV Q4HP PRN PRN Reason: Nausea And Vomiting Sodium Chloride (Saline Flush) 10 ml IV Q8 [facility] Last Admin: 02/13/19 05:28 Dose: 10 ml Documented by: Vitamin D (Vitamin D3) 1,000 unit PO DAILY [facility] Last Admin: 02/13/19 10:16 Dose: 1,000 unit Documented by: Warfarin Sodium (Coumadin Per Pharmacy) 1 order PO UD [facility] Warfarin Sodium (Coumadin) 5 mg PO ONCE@1400 ONE Stop: 02/13/19 14:01 Medical - PN: A/P - Time Spent With Patient Total time spent is greater than 50% in coordination of care (as documented) at patient's floor/unit and/or counseling patient: - Narrative A/P Narrative: A/P Health Care associated pneumonia/ Aspirational Pneumonia -Patient has h/o recent antibiotic, (cipro ) use, also Esophageal dilation issues, -treat with Zosyn for now, day 2 today, cultures neg so far, Acute Hypoxic Respiratory Failure -on 2L oxygen, incentive spirometer, wean off as tolerated Type 2 Demand NSTEMI/ Ischemia -due to pna, chf, no chest pain or new EKG changes. Acute Congestive heart failure -noted on X ray, elevated bnp,BP is stable, IV lasix, Recurrent UTI -presently on macrobid, after a round of cipro and keflex? zosyn should cover any potential organisms, repeat UA h/o Prostate cancer/ Rectal Cancer -Follow up as outpatient Coronary artery disease/ Peripheral vascular disease -no chest pain, no new EKG changes -will continue home dose of asa/beta nancy/ cilastazol -pt notes he is unable to tolerate statin Diabetes/Hypertension -resume home meds for HTN -SSI INsulin for glucose control. h/o Recurrent PE -s/p IVC filter placement -on coumadin but INR is subtherapeutic -start on therapeutic dose of lovenox, till INR is therapeutic then swtic to coumadin DVT -lovenox, coumadin per pharmacy Diet Carb consistent/ cardiac Full code. Medical - PN: Qual - VTE Deep Vein Thrombosis/Pulmonary Embolism Present on Admission: Yes
[2019-02-13] MEDS ORDERED: WARFARIN 5 MG TABLET PO ONE (14:00)
[2019-02-13] MEDS: FUROSEMIDE 40 MG/4 ML VIAL IV SCH (15:45)
[2019-02-13] MEDS: ASPIRIN 81 MG TAB.CHEW PO SCH (21:13)
[2019-02-13] MEDS: IMIPRAMINE 25 MG TABLET PO SCH (21:13)
[2019-02-14] MEDS: IPRATROPIUM/ALBUTEROL 3 ML AMPUL.NEB NEB SCH ×3 (00:12→13:07)
[2019-02-14] MEDS: PIPERACILLIN SODIUM/TAZOBACTAM 3.375 GM in DEXTROSE 5% IN WATER 50 ML IV SCH ×2 (05:05→12:31)
[2019-02-14 05:41] LABS: Basophils # (Auto) 0 K/mcL (0.0-0.3); Basophils % (Auto) 0.2 % (0.0-2.0); Eosinophils # (Auto) 0.5 K/mcL (0.0-0.7); Eosinophils % (Auto) 6.1 % (0.0-7.0); Granulocytes % (Auto) 75.3 % (38.0-78.0); Lymphocytes % (Auto) 10.7 % (15.5-49.0); Mean Cell Volume 75.4 fL (80.0-100.0); Mean Corpuscular HGB Conc 32.9 g/dL (31.0-36.0); Monocytes # (Auto) 0.7 K/mcL (0.1-0.9); Monocytes % (Auto) 7.7 % (1.0-12.0); Platelet Count 266 K/mcL (140-440); RBC 3.98 M/mcL (4.50-5.90); Red Cell Distribution Width 17.8 % (11.5-14.5)
[2019-02-14] MEDS: 0.9 % SODIUM CHLORIDE 10 ML SYRINGE IV SCH ×3 (05:51→15:23)
[2019-02-14 05:55] LABS: ALT/SGPT 9 U/l (0-40); Albumin/Globulin Ratio 0.9 (1.0-2.3); Alkaline Phosphatase 81 U/L (39-117); Bilirubin,Direct < 0.2 mg/dL (0.0-0.3); Blood Urea Nitrogen 27 mg/dl (8-23); Gamma Glutamyl Transpeptidase 14 U/L (8-61); Uric Acid 5.5 mg/dL (2.5-8.0)
[2019-02-14] MEDS: FUROSEMIDE 40 MG/4 ML VIAL IV SCH (07:29)
[2019-02-14] MEDS: INSULIN LISPRO 1 UNIT/0.01 ML UNIT SQ SCH ×2 (07:30→12:20)
[2019-02-14] MEDS: LEVOTHYROXINE 75 MCG TABLET PO SCH (07:31)
[2019-02-14] MEDS: CILOSTAZOL 100 MG TABLET PO SCH (07:31)
[2019-02-14] MEDS: OMEPRAZOLE 20 MG CAPSULE PO SCH (07:32)
[2019-02-14] MEDS: MAGNESIUM OXIDE 400 MG TABLET PO SCH (08:55)
[2019-02-14] MEDS: VITAMIN D3 1,000 UNIT TABLET PO SCH (08:55)
[2019-02-14] MEDS: CYANOCOBALAMIN (VITAMIN B-12) 500 MCG TABLET PO SCH (08:55)
[2019-02-14] MEDS: FISH OIL 1,000 MG CAPSULE PO SCH (08:55)
[2019-02-14] MEDS: METOPROLOL SUCCINATE 50 MG TAB.XL.24H PO SCH (08:55)
[2019-02-14] MEDS: MULTIVIT,THER IRON,CA,FA & MIN 1 TABLET PO SCH (08:56)
--- NOTE | 2019-02-14 12:29 | Discharge Summary ---
Medical - DS: Prov Patient information: Note initiated : 02/14/19 at 12:24 pm Service Date, if different from initiated Date: [] Patient: Melvin Sousa 83 y/o M admitted on 02/12/19 for shortness of breath. Chief Complaint: [] Date of admission: 02/12/19 14:28 Discharge date: 02/14/19 Primary care physician: Curtis Ruiz Consults: 02/12/19 Consult to Physician [CONS] Stat Comment: Consulting Provider: Ruy Santiago Reason For Exam: Physician to Consult Discharging clinician: Ruy Santiago Medical - DS: Meds - Discharge Medications Prescriptions: Amoxicillin/Potassium Clav [Augmentin] 875 mg PO Q12H #10 tab Furosemide [Lasix] 40 mg PO DAILY #30 tab Potassium Chloride [Kdur] 20 meq PO QAMCC #30 tab Active and Home Medications: Home Medications aspirin 81 mg chewable tablet 81 mg PO HS 09/19/15 [History Confirmed 02/12/19 Last Taken 01/13/19] cyanocobalamin (vit B-12) 2,500 mcg sublingual tablet 3,000 mcg SUBLINGUAL QDAY 09/19/15 [History Confirmed 02/12/19 Last Taken 01/13/19] levothyroxine 50 mcg tablet 75 mcg PO QDAY 09/19/15 [History Confirmed 02/12/19 Last Taken 01/13/19] multivitamin tablet 1 tab PO QDAY 09/19/15 [History Confirmed 02/12/19 Last Taken 01/13/19] omega-3 fatty acids 1,000 mg capsule 1,200 mg PO QDAY 09/19/15 [History Confirmed 02/12/19 Last Taken 01/13/19] omeprazole 20 mg tablet,delayed release 20 mg PO QDAY 09/19/15 [History Confirmed 02/12/19 Last Taken 01/13/19] Cholecalciferol (Vitamin D3) [Vitamin D3] 1,000 unit PO DAILY 08/19/17 [History Confirmed 02/12/19 Last Taken 01/13/19] Magnesium Oxide [Magnesium] 400 mg PO DAILY 08/19/17 [History Confirmed 02/12/19 Last Taken 01/13/19] cilostazol 50 mg tablet 50 mg PO BID tab 12/30/18 [History Confirmed 02/12/19 Last Taken 01/13/19] Glimepiride [Amaryl] 4 mg PO HS 01/08/19 [History Confirmed 02/12/19 Last Taken 01/13/19] Metoprolol Succinate [Toprol Xl] 50 mg PO DAILY 01/08/19 [History Confirmed 02/12/19 Last Taken 01/13/19] Nitroglycerin [Nitrostat] 0.4 mg SL PRN PRN 01/08/19 [History Confirmed 02/12/19 Last Taken Unknown] nitrofurantoin monohydrate/macrocrystals 100 mg capsule 100 mg PO BID #20 cap 02/04/19 [Rx Confirmed 02/12/19 Last Taken Unknown] Imipramine [Tofranil] 25 mg PO HS 02/12/19 [History Confirmed 02/12/19 Last Taken Unknown] Warfarin [Coumadin] 5 mg PO SUMOTUWEFRSA@1400 02/12/19 [History Confirmed 02/12/19 Last Taken Unknown] Warfarin [Coumadin] 7 mg PO TH@1400 02/12/19 [History Confirmed 02/12/19 Last Taken Unknown] Medical - DS: Hosp Hospital course: Mr. Sousa is a 83 year old M with multiple medical issues presents to the emergency room today with his for evaluation of shortness of breath weakness and fever going on for the last 1-2 days. The patient notes most of his symptoms started yesterday day before yesterday he was feeling more or less fine. He has been in the morning he became short of breath he was short of breath with minimal activity, he usually uses a walker for ambulation. He also had a fever of 101.8. The patient this morning again woke up from sleep being short of breath and felt that he was not getting enough air. While trying to move around and later with his walker he felt that his condition was getting worse he therefore presented to the emergency room for further evaluation. He admits to having some cough with clear sputum, but otherwise no other complaints. He denies any chest pain, admits to having some nausea but no vomiting. 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 The patient denies any changes in hearing, abdominal pain, he does have a recurrent urinary tract infections and follows with Dr. Peterson for same, he also admits to having been recently diagnosed with rectal cancer which is followed by Dr. Carl He has chronic lower extremity edema, and admits to having poor circulation in his legs. On presentation to the emergency room patient is afebrile temperature 98.8, heart rate 88 blood pressure 135 x 67 respirations 24 saturating 93% on 2 L of oxygen. Patient's labs show leukocytosis WBC count of 17.3, hemoglobin 11.2, platelets 302. INR 1.6, lactic acid 1.5, troponin 0 0.08, is chronically elevated presently slightly worse than before. 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 wishes to go home, stable for discharge, manoj start on lasix 40mg daily, and KCL supplements He will complete the course of abx with augmentin, hold off nitrofurantoin Discharge diagnosis: Pneumonia, CHF - Time Spent with Patient Total time spent providing and/or coordinating discharge services: Greater than 30 minutes Medical - DS: Exam - Constitutional Vitals: Vital Signs Temp Pulse Pulse Resp BP BP BP 02/14/19 07:18 97.6 F 20 137/77 02/14/19 03:01 98.3 F 22 153/65 02/13/19 23:36 98.9 F 60 20 127/59 02/13/19 19:35 73 16 02/13/19 19:34 73 16 02/13/19 19:30 98.8 F 22 124/70 02/13/19 19:29 98.8 F 22 124/70 02/13/19 19:00 74 02/13/19 15:24 99.4 F H 84 22 111/67 02/13/19 13:01 77 18 Pulse Ox 02/14/19 07:18 95 02/14/19 03:01 95 02/13/19 23:36 96 02/13/19 19:35 94 02/13/19 19:34 02/13/19 19:30 95 02/13/19 19:29 95 02/13/19 19:00 94 02/13/19 15:24 94 02/13/19 13:01 Intake and Output 02/13/19 02/14/19 02/14/19 21:59 05:59 13:59 Intake Total 560 300 480 Output Total 1000 700 Balance -440 -400 480 Intake: IV 50 100 Zosyn 3.375 gm In Dextrose 5% 50 100 in Water 50 ml @ 100 mls/hr IV Q6H [facility] Rx#:[id number] Oral 510 200 480 Output: Urine Catheter Amount 1000 700 Other: Meal Dinner Breakfast Percent of Meal Consumed 100% 100% Feeding Ability Independent Independent Urine Appearance Clear Clear Sediment Uretheral ([place]) Clear Sediment Urine Color Pale Straw Uretheral ([place]) Straw Urine Odor Normal Normal Stool Size Moderate Stool Color Brown Stool Consistency Soft # Bowel Movements 1 1 Weight 202 lb 12.8 oz Additional comments: Constitutional; Afebrile, cooperative, alert, not in distress. Respiratory system: Air Entry equal on both sides, mild bilbasilar inspiratory crackles , no wheezing, no rhonchi. CVS- Rate rhythm regular, S1,S2 heard, no gallop, no rub. Abdomen- Soft nontender abdomen, no organomegaly, no tenderness, no guarding or rigidity, CURRICULUM CONSULTANT- AOOx3, moving all extremities, no gross focal deficit noted. Medical - DS: Data Labs on day of discharge: Labs from last 24 hours 02/14/19 02/14/19 02/14/19 03:45 03:45 03:45 WBC 9.0 RBC 3.98 L Hgb 9.9 L Hct 30.0 L MCV 75.4 L MCH 24.8 L MCHC 32.9 RDW 17.8 H Plt Count 266 MPV 7.8 Gran % 75.3 Lymph % (Auto) 10.7 L Row[place] % (Auto) 7.7 Eos % (Auto) 6.1 Baso % (Auto) 0.2 Gran # 6.8 Lymph # (Auto) 1.0 L [place] # (Auto) 0.7 Eos # (Auto) 0.5 Baso # (Auto) 0 PT 23.1 H INR 2.1 H Sodium 136 Potassium 3.6 Chloride 98 Carbon Dioxide 25 Anion Gap 13.0 BUN 27 H Creatinine 1.4 H GFR Calculation 46 Glucose 167 H Uric Acid 5.5 Calcium 8.5 L Phosphorus 3.4 Magnesium 1.7 Total Bilirubin 0.4 Direct Bilirubin < 0.2 GGT 14 AST 11 ALT 9 Alkaline Phosphatase 81 Lactate Dehydrogenase 217 Total Protein 6.5 Albumin 3.0 L Globulin 3.5 Albumin/Globulin Ratio 0.9 L Triglycerides 70 Preliminary micro results at discharge 02/12/19 16:53 Sputum Culture - Preliminary Sputum - Induced 02/12/19 12:31 Blood Culture - Preliminary Blood 02/12/19 12:27 Blood Culture - Preliminary Blood Medical - DS: A/P - Patient/Caregiver Discharge Instructions Activity: increase activity as tolerated Diet: Cardiac, Consistent Carbohydrate Additional Instructions: Please complete the course of antibiotics, I have started you on a water pill furosemide 1 tablet once a day take this medication in the morning. Also take potassium supplement 1 tablet once a day in the morning. If you have any chest pain fever shortness of breath or any other acute concerns please go back to the emergency room. Follow-up with your primary care provider within 1 week, make sure that you check your INR in 3-4 days You do not have the complete the Macrobid or nitrofurantoin as the antibiotic I am prescribing should cover for the UTI. - Follow up Plan Follow up with: Curtis Ruiz MD [Primary Care Provider] - Disposition: Home, Self-Care Prognosis: Fair Rehab Potential: Fair I certify that the patient requires SNF services: No Overall status at discharge: patient is progressing back to baseline Medical - DS: Qual - VTE Deep Vein Thrombosis/Pulmonary Embolism Present on Admission: Yes
[2019-02-14] MEDS ORDERED: WARFARIN 5 MG TABLET PO ONE (14:00)
== END 2019-02-14 13:10 | disposition home or self-care (01) | DRG 177 ==
LOC: ED 11:25 → ICU 14:28
PROVIDERS: ADMIT Internal Medicine; ATTEND Internal Medicine